=== PATIENT | female | born 1955 | race Caucasian/White ===

== ENCOUNTER 2016-12-21 09:51 | Emergency (ER) | payer OTHER ==
[~2016-12-21] VITALS: Ht 180.3 cm; Wt 97.5 kg
[~2016-12-21 09:51] MED LIST: HYDR50TA3 PO; MULT-974 PO; OXYC-12 PO; PROM12.59 PO
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
[2016-12-21] MEDS ORDERED: MELO15TA39 PO (10:29)
[2016-12-21] MEDS ORDERED: SPIR25TA3 PO (10:29)
[2016-12-21] MEDS ORDERED: fentaNYL INJECTION 100 MCG/2 ML AMP IM ONE (11:30)
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
--- NOTE | 2016-12-21 12:24 | Diagnostic Imaging Report ---
PROCEDURE: CT lumbar spine without contrast. TECHNIQUE: Multiple contiguous axial images were obtained through the lumbar spine without the use of intravenous contrast. Sagittal and coronal reformations were then performed. INDICATION: Lower extremity pain and back pain. COMPARISON: None. FINDINGS: No acute fracture or osseous destructive process is seen. There is moderate levoscoliosis of the lumbar spine centered at about L2-L3. Vertebral body heights are maintained. At L5-S1, there is advanced degenerative disc disease with disc space narrowing and spurring. There is mild broad-based posterior disc osteophyte complex resulting in minimal foraminal narrowing. There is mild facet arthropathy. At L4-L5, there is degenerative disc disease with disc space narrowing and mild spurring. There is mild facet arthropathy. There is broad-based posterior disc protrusion which is eccentric to the left. There is moderate to severe left foraminal encroachment and mild right foraminal encroachment with mild central narrowing. At L3-L4, there is degenerative disc disease with disc space narrowing and spurring as well as broad-based posterior disc protrusion and mild facet arthropathy. There is mild foraminal narrowing bilaterally. At L2-L3, there is advanced degenerative disc changes with disc space loss and spurring. There is some spurring extending into the right neural foramen resulting in some narrowing here. At L1-L2, there are degenerative disc changes with posterior disc osteophyte complex. No significant stenosis is appreciated. There are calcified granulomata in the spleen. IMPRESSION: 1. Levoscoliosis with diffuse degenerative changes in the spine. There is some moderate to severe left foraminal stenosis at L4-L5 secondary to disc protrusion. Correlate with level of radiculopathy. See above for detailed discussion by level. Dictated by: Dictated on workstation # [id number]
[2016-12-21 12:56] VITALS: BP 132/92
== END 2016-12-21 12:56 | disposition home or self-care (01) ==
LOC: EDUNIT# 09:51 → ER 09:55
DX: M51.16 Intervertebral disc disorders with radiculopathy, lumbar region (principal)
CPT/HCPCS: 72131; 96372; 99282

== ENCOUNTER → 2019-01-22 | Outpatient (CLI) | payer OTHER ==
[~2019-01-22] MED LIST changes: +MELO15TA39 PO; +SPIR25TA5 PO
--- NOTE | 2019-01-22 16:31 | Diagnostic Imaging Report ---
PROCEDURE: CT head without contrast. TECHNIQUE: Multiple contiguous axial images were obtained through the brain without the use of intravenous contrast. Auto Exposure Controls were utilized during the CT exam to meet ALARA standards for radiation dose reduction. INDICATION: Convulsions and disequilibrium. CT HEAD: CT images of the head were obtained. FINDINGS: Ventricles and sulci are within normal limits for size. There is no intracranial hemorrhage identified. There is no abnormal mass effect or shift of midline structures. IMPRESSION: Unremarkable CT of the head. Dictated by: Dictated on workstation # [id number]
== END ==
LOC: RAD 16:03
PROVIDERS: ATTEND Nurse Practitioner Family
DX: E87.8 Other disorders of electrolyte and fluid balance, not elsewhere classified (principal); R56.9 Unspecified convulsions; R55 Syncope and collapse
CPT/HCPCS: 70450

== ENCOUNTER 2021-08-20 14:01 | Inpatient (IN) | payer MEDICARE ==
[~2021-08-20] VITALS: Ht 180 cm; Wt 86.6 kg
[2021-08-20] VITALS (8 sets, daily range): BP systolic 101–125; BP diastolic 67–82
--- NOTE | 2021-08-20 14:31 | ED General ---
General Stated Complaint: SEIZURE Source of Information: Patient Exam Limitations: No Limitations History of Present Illness Date Seen by Provider: Aug 20, 2021 Time Seen by Provider: 14:28 Initial Comments To ER by EMS from Dr. Tamara Marcano's office where she presented to be seen for some abdominal discomfort that she has been having. Sh is currently being treated by Sukhi Castelan at [facility] for helicobacter pylori infection. She has had increasing weakness and falls. She has new onset exertional dyspnea. She had one seizure about 2 years ago but never followed up on it she states. Today in the clinic she had a tonic-clonic seizure episode with urinary incontinence. Glucose was 69. She has not been eating or drinking much. Fingerstick hemoglobin was initially 5.9 and then rechecked and found to be 7.5. She denies fevers or chills. She denies any headache but does report increasing weakness and increasing falls over the past few weeks. She has no known medical problems. She has tenderness to the right lower abdomen and has not had a bowel movement in 2 days. She is had an unintentional weight loss of 70 pounds since March of this year. Timing/Duration: Getting Worse, Intermittent Severity: Moderate Associated Systoms: Denies Symptoms Allergies and Home Medications Allergies Coded Allergies: No Known Drug Allergies (Unverified , 08/09/14) Patient Home Medication List Home Medication List Reviewed: Yes Hydrochlorothiazide (Hydrochlorothiazide) 50 Mg Tablet, 50 MG PO DAILY, (Reported) Entered as Reported by: BORA ALMARAZ on 08/09/14 0941 Meloxicam (Meloxicam) 15 Mg Tablet, 15 MG PO DAILY, (Reported) Entered as Reported by: SHARON LAURA on 12/21/16 1029 Multivitamin (Multi Vitamin Daily) 1 Each Tablet, 1 TAB PO DAILY, (Reported) Entered as Reported by: BORA ALMARAZ on 08/09/14 0943 Spironolactone (Spironolactone) 25 Mg Tablet, 25 MG PO DAILY, (Reported) Entered as Reported by: SHARON LAURA on 12/21/16 1029 Review of Systems Review of Systems Constitutional: see HPI EENTM: see HPI Respiratory: no symptoms reported Cardiovascular: no symptoms reported Gastrointestinal: abdominal pain Genitourinary: no symptoms reported Musculoskeletal: no symptoms reported Skin: no symptoms reported Psychiatric/Neurological: No Symptoms Reported Past Aoipdob-Witocs-Yqoolf Hx Immunizations Up To Date Tetanus Booster (TDap): More than 5yrs Seasonal Allergies Seasonal Allergies: No Past Medical History Reproductive Disorders: No Sexually Transmitted Disease: No Family Medical History Diabetes mellitus 19 MOTHER (dmu) Gastroenteritis 19 FATHER (gastric ulcers) Respiratory disorder G8 SISTER (lung ca) Physical Exam Vital Signs Vital Signs - First Documented 08/20/21 14:01 Temp 36.3 Pulse 95 Resp 16 B/P (MAP) 120/67 (84) Pulse Ox 100 O2 Delivery Nasal Cannula Capillary Refill : Height, Weight, BMI Height: 5'11" Weight: 215lbs. 6.0oz. 97.886472pg; BMI Method:Stated General Appearance: No Apparent Distress, WD/WN, Other (Ill-appearing chronically, abdomen is distended. Bowel sounds are present. Tenderness to the right side upon palpation.) Eyes: Bilateral Eye Normal Inspection, Bilateral Eye PERRL, Bilateral Eye EOMI Neck: Full Range of Motion, Normal Inspection Respiratory: No Accessory Muscle Use, No Respiratory Distress Cardiovascular: Regular Rate, Rhythm, Normal Peripheral Pulses Gastrointestinal: Normal Bowel Sounds, Non Tender, Soft Extremity: Normal Capillary Refill, Normal Inspection Neurologic/Psychiatric: Alert, Oriented x3 Skin: Normal Color, Warm/Dry Progress/Results/Core Measures Suspected Sepsis SIRS Temperature: Pulse: Respiratory Rate: Laboratory Tests 08/20/21 14:20: White Blood Count 5.4 Blood Pressure / Mean: Laboratory Tests 08/20/21 14:20: Creatinine 1.78H, INR Comment 1.1, Platelet Count 325, Total Bilirubin 0.5 Results/Orders Lab Results Laboratory Tests Test 08/20/21 14:20 Range/Units White Blood Count 5.4 4.3-11.0 10^3/uL Red Blood Count 2.77 L 3.80-5.11 10^6/uL Hemoglobin 6.8 *L 11.5-16.0 g/dL Hematocrit 24 L 35-52 % Mean Corpuscular Volume 85 80-99 fL Mean Corpuscular Hemoglobin 25 25-34 pg Mean Corpuscular Hemoglobin Concent 29 L 32-36 g/dL Red Cell Distribution Width 21.9 H 10.0-14.5 % Platelet Count 325 130-400 10^3/uL Mean Platelet Volume 9.4 9.0-12.2 fL Immature Granulocyte % (Auto) 5 % Neutrophils (%) (Auto) 65 42-75 % Lymphocytes (%) (Auto) 19 12-44 % Monocytes (%) (Auto) 10 0-12 % Eosinophils (%) (Auto) 0 0-10 % Basophils (%) (Auto) 1 0-10 % Neutrophils # (Auto) 3.5 1.8-7.8 X 10^3 Lymphocytes # (Auto) 1.0 1.0-4.0 X 10^3 Monocytes # (Auto) 0.5 0.0-1.0 X 10^3 Eosinophils # (Auto) 0.0 0.0-0.3 10^3/uL Basophils # (Auto) 0.1 0.0-0.1 10^3/uL Immature Granulocyte # (Auto) 0.3 H 0.0-0.1 10^3/uL Prothrombin Time 14.2 12.2-14.7 SEC INR Comment 1.1 0.8-1.4 Activated Partial Thromboplast Time 35 24-35 SEC Sodium Level 136 135-145 MMOL/L Potassium Level 4.0 3.6-5.0 MMOL/L Chloride Level 100 98-107 MMOL/L Carbon Dioxide Level 18 L 21-32 MMOL/L Anion Gap 18 H 5-14 MMOL/L Blood Urea Nitrogen 26 H 7-18 MG/DL Creatinine 1.78 H 0.60-1.30 MG/DL Estimat Glomerular Filtration Rate 29 BUN/Creatinine Ratio 15 Glucose Level 155 H 70-105 MG/DL Calcium Level 9.7 8.5-10.1 MG/DL Corrected Calcium 10.3 H 8.5-10.1 MG/DL Magnesium Level 2.2 1.6-2.4 MG/DL Total Bilirubin 0.5 0.1-1.0 MG/DL Aspartate Amino Transf (AST/SGOT) 55 H 5-34 U/L Alanine Aminotransferase (ALT/SGPT) 30 0-55 U/L Alkaline Phosphatase 256 H 40-136 U/L B-Type Natriuretic Peptide 173.1 H <100.0 PG/ML Total Protein 7.5 6.4-8.2 GM/DL Albumin 3.3 3.2-4.5 GM/DL Lipase 14 8-78 U/L Thyroid Stimulating Hormone (TSH) 1.96 0.35-4.94 UIU/ML Free Thyroxine 1.00 0.70-1.48 NG/DL My Orders Orders - MANJU FELTON APRN Ct Head Wo (08/20/21 14:24) Chest 1 View, Ap/Pa Only (08/20/21 14:24) Cbc With Automated Diff (08/20/21 14:24) Ekg Tracing (08/20/21 14:24) BNP (08/20/21 14:24) Ua Culture If Indicated (08/20/21 14:24) Ed Iv/Invasive Line Start (08/20/21 14:24) Lipase (08/20/21 14:24) Magnesium (08/20/21 14:24) Thyroid Stimulating Hormone (08/20/21 14:24) Free T4 (Free Thyroxine) (08/20/21 14:24) Red Cells Leukocytes Reduced (08/20/21 14:24) Type And Screen (08/20/21 14:24) Comprehensive Metabolic Panel (08/20/21 14:42) Protime With Inr (08/20/21 14:42) Partial Thromboplastin Time (08/20/21 14:42) Ct Chest/Abdomen/Pelvis Wo (08/20/21 15:14) Lactated Ringers (Lr 1000 Ml Iv Solution (08/20/21 15:15) Diatrizoate Meglum/Sodium 37% (Gastrogra (08/20/21 16:00) Medications Given in ED Current Medications Medications Dose Ordered Sig/Hakeem Route Start Time Stop Time Status Last Admin Dose Admin Diatrizoate Meglum/ Diatrizoate Sod 120 ml ONCE ONCE PO 08/20/21 16:00 08/20/21 16:01 DC 08/20/21 15:56 120 ML Vital Signs/I&O 08/20/21 14:01 Temp 36.3 Pulse 95 Resp 16 B/P (MAP) 120/67 (84) Pulse Ox 100 O2 Delivery Nasal Cannula Capillary Refill : Departure Communication (Admissions) Family Conversation NAME: HANNAH ARNOLD MED REC#: [id number] PT STATUS: REG ER : 1955 PHYSICIAN: MANJU FELTON APRN ADMIT DATE: 08/20/21/ER Draft Date of Exam:08/20/21 CHEST 1 VIEW, AP/PA ONLY INDICATION: Shortness of breath Frontal chest obtained at 02:47 p.m. and compared to 08/10/2014. Heart and mediastinal silhouette are normal in appearance. The lungs appear clear. There is no pneumothorax or pleural fluid. There are ill-defined sclerotic changes throughout the visualized ribs with old fracture deformities in the left ribs. The findings of the ribs may represent old trauma or metastatic disease.. Correlate with clinical findings. IMPRESSION: No focal infiltrate or pneumothorax or pleural fluid. Ill-defined sclerotic changes are visualized scattered throughout the ribs, these findings could represent old trauma or metastatic disease. Correlate with clinical findings. Dictated on workstation # [id number] Dict: 08/20/21 1456 Trans: 08/20/21 1506 [facility] [id number] Interpreted by: CHEN BUCKLEY MD Electronically signed by: NAME: HANNAH ARNOLD [facility] REC#: [id number] PT STATUS: REG ER : 1955 PHYSICIAN: MANJU FELTON APRN ADMIT DATE: 08/20/21/ER Draft Date of Exam:08/20/21 CT HEAD WO INDICATION: Seizure. Weakness. TECHNIQUE: Routine noncontrast-enhanced axial images were obtained from the skull base to the vertex. Auto Exposure Controls were utilized during the CT exam to meet ALARA standards for radiation dose reduction COMPARISON: 01/22/2019. FINDINGS: The ventricles and cortical sulci are diffusely prominent, compatible with age-related volume loss. There are confluent areas of abnormal, low attenuation in the periventricular white matter. This is consistent with chronic small vessel ischemic changes. There is no midline shift or mass-effect. No acute intra-axial hemorrhage is seen. There are no abnormal areas of increased or decreased density to suggest acute hemorrhage or edema. No extra-axial masses or collections are present. Evaluation of the bony calvarium demonstrates a diffuse mottled appearance, suggestive of metastatic disease. This corresponds to the abnormal appearance to the osseous structures on the accompanying CT chest, abdomen, and pelvis from this same day. The visualized paranasal sinuses are unremarkable. The mastoid air cells are clear. IMPRESSION: 1. No acute intracranial abnormality. No CT evidence of mass, acute infarct or intracranial hemorrhage. 2. Chronic small vessel ischemic changes in the deep white matter. 3. 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 Dictated on workstation # [id number] Dict: 08/20/21 1604 Trans: 08/20/21 1610 [id number] Interpreted by: AJ YAÑEZ MD Electronically signed by: NAME: HANNAH ARNOLD [facility] REC#: [id number] PT STATUS: REG ER : 1955 PHYSICIAN: MANJU FELTON [employer]SEMBLER ADMIT DATE: 08/20/21/ER Draft Date of Exam:08/20/21 CT CHEST/ABDOMEN/PELVIS WO PROCEDURE: CT chest, abdomen, and pelvis without contrast. TECHNIQUE: Multiple contiguous axial images were obtained through the chest, abdomen, and pelvis without the use of intravenous contrast. Auto Exposure Controls were utilized during the CT exam to meet ALARA standards for radiation dose reduction. INDICATION: Marked weight loss, weakness, difficulty breathing, abdominal distention, right abdominal pain, seizure, anemia. COMPARISON: 08/09/2014 FINDINGS: CT CHEST: The heart is normal in size. The interventricular septum is visible which is consistent with the patient's history of anemia. There is coronary and aortic atherosclerosis. Multiple calcified lymph nodes are seen in the mediastinum, likely from old granulomatous disease. No significant mediastinal lymph node enlargement is seen. There is no pleural effusion or pneumothorax. There is mild scarring in the left lung base. No masses are seen in the lungs. No central endobronchial lesions are seen. The bones demonstrate extensive mottled appearance with innumerable lytic lesions throughout the imaged skeleton. No definite acute fracture is identified. CT ABDOMEN AND PELVIS: There is irregularity to the contour of the liver, may be due to nodularity or capsular retraction. Calcified granulomas are seen in the liver and spleen. The spleen is large measuring 13.4 cm. The pancreas is not well seen, but appears to be atrophic and fatty. There is a gallbladder calcified stone measuring 2.2 cm. The kidneys demonstrate no stones and no significant calculus. No large masses are seen on this noncontrast exam. There is marked ascites throughout the abdomen. The bowel loops are nondistended without obstruction. There is diverticulosis of the sigmoid colon without diverticulitis. No free air is seen. There is a mass in the right adnexa measuring 3.8 x 3.5 cm in size (image 101 series 2). This is not well evaluated in the absence of contrast. Again, there are extensive lytic lesions throughout the skeleton, which are innumerable lesions at L3 may result in spinal canal stenosis. IMPRESSION: 1. Innumerable lytic lesions throughout the imaged skeleton, consistent with metastatic disease. Lesion at L3 level could result in spinal canal stenosis 2. Marked ascites. 3. 3.8 cm mass in the right adnexa. This could represent a cyst, however a neoplasm is not excluded. Consider ultrasound if the patient is able. 4. Somewhat lobulated appearance of the liver. This could be due to sclerotic changes or possibly capsular retraction. No definitive liver lesion is seen on this noncontrast exam. 5. Splenomegaly. 6. Cholelithiasis. Dictated on workstation # [id number] Dict: 08/20/21 1605 Trans: 08/20/21 1628 CVB [id number] Interpreted by: RODRICK ALBERTS MD Electronically signed by: [id number] shows sinus rhythm at [address] segment changes no ectopy 1640-discussed the case with Dr. Vergara from gynecology here, recommends transfer on up to [facility] for Mechanical Drawing Teacher-onc 1802-I discussed with the [facility] transfer center they are at capacity and unable to accept the patient. They have given me the phone number to the cancer center nurse navigator at [phone] and report that she can help facilitate an expedited evaluation. Will admit her here, transfused 2 units of packed cells, consult Dr. Hernandes for paracentesis tomorrow for cytology and symptom relief, consult Dr. Vergara as well as getting an ultrasound of the pelvis tomorrow. I will admit to Dr. Jiménez and consult oncology as well. Impression Primary Impression: Metastatic cancer Additional Impressions: Anemia Ovarian mass, right Disposition: ADMITTED INPATIENT Condition: Stable Admissions Decision to Admit Reason: Admit from ER (General) Decision to Admit/Date: Aug 20, 2021 Time/Decision to Admit Time: 16:17 Departure-Patient Inst. Referrals: [facility] [place] (PCP/Family) Primary Care Physician MANJU FELTON [employer] SH[employer] ASSEMBLER Aug 20, 2021 14:31
[2021-08-20 14:33] LABS: BASOPHILS # (AUTO) 0.1 10^3/uL (0.0-0.1); BASOPHILS % (AUTO) 1 % (0-10); EOSINOPHILS % (AUTO) 0 % (0-10); HEMATOCRIT 24 % (35-52); LYMPHOCYTES % (AUTO) 19 % (12-44); MEAN CORPUSCULAR HEMOGLOBIN 25 pg (25-34); MEAN CORPUSCULAR HGB CONC 29 g/dL (32-36); MEAN CORPUSCULAR VOLUME 85 fL (80-99); MEAN PLATELET VOLUME 9.4 fL (9.0-12.2); MONOCYTES # (AUTO) 0.5 X 10^3 (0.0-1.0); MONOCYTES % (AUTO) 10 % (0-12); NEUTROPHILS # (AUTO) 3.5 X 10^3 (1.8-7.8); NEUTROPHILS % (AUTO) 65 % (42-75); PLATELET COUNT 325 10^3/uL (130-400); WHITE BLOOD COUNT 5.4 10^3/uL (4.3-11.0)
[2021-08-20 14:36] LABS: HEMOGLOBIN 6.8 g/dL (11.5-16.0)
[2021-08-20 14:44] LABS: MAGNESIUM 2.2 MG/DL (1.6-2.4)
[2021-08-20 15:00] LABS: INR 1.1 (0.8-1.4); PROTHROMBIN TIME PATIENT 14.2 SEC (12.2-14.7)
[2021-08-20 15:06] LABS: ALBUMIN 3.3 GM/DL (3.2-4.5); BILIRUBIN,TOTAL 0.5 MG/DL (0.1-1.0); CALCIUM 9.7 MG/DL (8.5-10.1); CREATININE SERUM 1.78 MG/DL (0.60-1.30); TOTAL PROTEIN 7.5 GM/DL (6.4-8.2)
--- NOTE | 2021-08-20 15:06 | Diagnostic Imaging Report ---
INDICATION: Shortness of breath Frontal chest obtained at 02:47 p.m. and compared to 08/10/2014. Heart and mediastinal silhouette are normal in appearance. The lungs appear clear. There is no pneumothorax or pleural fluid. There are ill-defined sclerotic changes throughout the visualized ribs with old fracture deformities in the left ribs. The findings of the ribs may represent old trauma or metastatic disease.. Correlate with clinical findings. IMPRESSION: No focal infiltrate or pneumothorax or pleural fluid. Ill-defined sclerotic changes are visualized scattered throughout the ribs, these findings could represent old trauma or metastatic disease. Correlate with clinical findings. Dictated by: Dictated on workstation # [id number]
[2021-08-20] MEDS ORDERED: LACTATED RINGERS 1,000 ML IV SCH (15:15)
[2021-08-20] MEDS ORDERED: DIATRIZOATE MEGLUM/SODIUM 37% 120 ML (GASTROGRAFIN) PO ONE (16:00)
--- NOTE | 2021-08-20 16:10 | Diagnostic Imaging Report ---
INDICATION: Seizure. Weakness. TECHNIQUE: Routine noncontrast-enhanced axial images were obtained from the skull base to the vertex. Auto Exposure Controls were utilized during the CT exam to meet ALARA standards for radiation dose reduction COMPARISON: 01/22/2019. FINDINGS: The ventricles and cortical sulci are diffusely prominent, compatible with age-related volume loss. There are confluent areas of abnormal, low attenuation in the periventricular white matter. This is consistent with chronic small vessel ischemic changes. There is no midline shift or mass-effect. No acute intra-axial hemorrhage is seen. There are no abnormal areas of increased or decreased density to suggest acute hemorrhage or edema. No extra-axial masses or collections are present. Evaluation of the bony calvarium demonstrates a diffuse mottled appearance, suggestive of metastatic disease. This corresponds to the abnormal appearance to the osseous structures on the accompanying CT chest, abdomen, and pelvis from this same day. The visualized paranasal sinuses are unremarkable. The mastoid air cells are clear. IMPRESSION: 1. No acute intracranial abnormality. No CT evidence of mass, acute infarct or intracranial hemorrhage. 2. Chronic small vessel ischemic changes in the deep white matter. 3. 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 Dictated by: Dictated on workstation # [id number]
--- NOTE | 2021-08-20 16:29 | Diagnostic Imaging Report ---
PROCEDURE: CT chest, abdomen, and pelvis without contrast. TECHNIQUE: Multiple contiguous axial images were obtained through the chest, abdomen, and pelvis without the use of intravenous contrast. Auto Exposure Controls were utilized during the CT exam to meet ALARA standards for radiation dose reduction. INDICATION: Marked weight loss, weakness, difficulty breathing, abdominal distention, right abdominal pain, seizure, anemia. COMPARISON: 08/09/2014 FINDINGS: CT CHEST: The heart is normal in size. The interventricular septum is visible which is consistent with the patient's history of anemia. There is coronary and aortic atherosclerosis. Multiple calcified lymph nodes are seen in the mediastinum, likely from old granulomatous disease. No significant mediastinal lymph node enlargement is seen. There is no pleural effusion or pneumothorax. There is mild scarring in the left lung base. No masses are seen in the lungs. No central endobronchial lesions are seen. The bones demonstrate extensive mottled appearance with innumerable lytic lesions throughout the imaged skeleton. No definite acute fracture is identified. CT ABDOMEN AND PELVIS: There is irregularity to the contour of the liver, may be due to nodularity or capsular retraction. Calcified granulomas are seen in the liver and spleen. The spleen is large measuring 13.4 cm. The pancreas is not well seen, but appears to be atrophic and fatty. There is a gallbladder calcified stone measuring 2.2 cm. The kidneys demonstrate no stones and no significant calculus. No large masses are seen on this noncontrast exam. There is marked ascites throughout the abdomen. The bowel loops are nondistended without obstruction. There is diverticulosis of the sigmoid colon without diverticulitis. No free air is seen. There is a mass in the right adnexa measuring 3.8 x 3.5 cm in size (image 101 series 2). This is not well evaluated in the absence of contrast. Again, there are extensive lytic lesions throughout the skeleton, which are innumerable lesions at L3 may result in spinal canal stenosis. IMPRESSION: 1. Innumerable lytic lesions throughout the imaged skeleton, consistent with metastatic disease. Lesion at L3 level could result in spinal canal stenosis 2. Marked ascites. 3. 3.8 cm mass in the right adnexa. This could represent a cyst, however a neoplasm is not excluded. Consider ultrasound if the patient is able. 4. Somewhat lobulated appearance of the liver. This could be due to sclerotic changes or possibly capsular retraction. No definitive liver lesion is seen on this noncontrast exam. 5. Splenomegaly. 6. Cholelithiasis. Dictated by: Dictated on workstation # [id number]
[2021-08-20] MEDS ORDERED: NS IV 500 ML 500 ML IV SCH (18:00)
[2021-08-20] MEDS ORDERED: LORazepam INJ 2 MG/ML (ATIVAN) VIAL IV PRN (18:00)
[2021-08-20] MEDS: NS IV 1000 ML 1,000 ML IV SCH (18:44)
[2021-08-20] MEDS ORDERED: MELATONIN 3 MG TABLET PO PRN (18:45)
[2021-08-20] MEDS ORDERED: ALPRAZolam 0.25 MG (XANAX) TAB PO PRN (18:45)
[2021-08-20] MEDS ORDERED: diphenhydrAMINE 25 MG TAB (BENADRYL) PO PRN (18:45)
[2021-08-20] MEDS ORDERED: ACETAMINOPHEN 500 MG TAB (TYLENOL) PO PRN (18:45)
[2021-08-20] MEDS ORDERED: HYDROcodone/APAP 5 MG/325 MG (LORTAB) TAB PO PRN (18:45)
[2021-08-20] MEDS ORDERED: DOCUSATE SODIUM 100 MG (COLACE) CAP PO PRN (18:45)
[2021-08-20] MEDS ORDERED: FLU QUAD HIGH DOSE 240 MCG/0.7 ML 2021-22 (FLUZONE) IM ONE (19:00)
[2021-08-20] MEDS ORDERED: RT-ALBUTEROL SULF 2.5 MG/3 ML PRE-MIX VIAL INH PRN (20:30)
--- NOTE | 2021-08-20 20:49 | History & Physical-Hospitalist ---
History of Present Illness HPI/Chief Complaint Chief complaint: Weakness History present illness: This is a 66-year-old white female clinic patient of [facility] who presented to the ER with weakness and abdominal bloating. She is found to be profoundly anemic at 6.8 hemoglobin. Upon further assessment she appeared to have an ovarian mass with widespread bony metastasis presumed to be ovarian cancer. She does have ascites. No beds available at . Decision was made to admit and give 2 units of blood consult MANAGER PLAY Dr. MIXON along with Dr. Hernandes for ovarian mass and paracentesis to send for cytology respectively. Dr. Quevedo will also see her in consultation. Patient appears to be very weak. and daughter at the bedside. She denies any pain. Source: patient, family Exam Limitations: no limitations Date Seen 08/20/21 Time Seen by a Provider: 18:30 Attending Physician Agnes Stahl DO PCP [facility] Referring Physician Date of Admission Aug 20, 2021 at 16:23 Home Medications & Allergies Home Medications Reviewed patient Home Medication Reconciliation performed by pharmacy medication reconciliations parking enforcement technician and/or nursing. Patients Allergies have been reviewed. Allergies Allergies Coded Allergies No Known Drug Allergies ([id number]/21/14) Past Oahlrzd-Ccsqkd-Cmdwfy Hx Patient Social History Marrital Status: Employed/Student: unemployed Tobacco Use?: Yes Tobacco type used: Cigarettes Smoking Status: Former Smoker Smokeless Tobacco Frequency: Never a User Use of E-Cig and/or Vaping dev: Yes E-Cig or Vaping type used: Nicotine Use of E-Cig and/or Vaping Myke: Former User Substance use?: No Alcohol Use?: No Pt feels they are or have been: No Immunizations Up To Date First/Initial COVID19 Vaccinat: 04/09 Second COVID19 Vaccination Luis: 04/09 Tetanus Booster (TDap): Unknown Seasonal Allergies Seasonal Allergies: No Current Status status: No status: No Advance Directives: No Communicates: Verbally Primary Language: Cambodian Preferred Spoken Language: Cambodian Is interpretation needed?: No Sensory deficits: Vision impairment Past Medical History Sexually Transmitted Disease: No Family Medical History Diabetes mellitus 19 MOTHER (dmu) Gastroenteritis 19 FATHER (gastric ulcers) Respiratory disorder G8 SISTER (lung ca) Review of Systems Constitutional: see HPI, malaise, weakness, weight loss EENTM: no symptoms reported Respiratory: no symptoms reported Cardiovascular: no symptoms reported Gastrointestinal: abdominal pain, loss of appetite, nausea, vomiting Genitourinary: no symptoms reported Musculoskeletal: no symptoms reported Skin: no symptoms reported Psychiatric/Neurological: No Symptoms Reported All Other Systems Reviewed Negative Unless Noted: Yes Physical Exam Physical Exam Vital Signs Vital Signs - First Documented 08/20/21 14:01 Temp 36.3 Pulse 95 Resp 16 B/P (MAP) 120/67 (84) Pulse Ox 100 O2 Delivery Nasal Cannula Capillary Refill : Less Than 3 Seconds Height, Weight, BMI Height: 5'11" Weight: 215lbs. 6.0oz. 97.251181vh; 22.53 BMI Method:Stated General Appearance: WD/WN, Chronically ill, Thin Eyes: Right Eye Normal Inspection, Right Eye PERRL HEENT: PERRL/EOMI, Normal ENT Inspection, Pharynx Normal, Moist Mucous Membranes Neck: Full Range of Motion, Normal Inspection, Non Tender Respiratory: Chest Non Tender, Lungs Clear, Normal Breath Sounds, No Accessory Muscle Use, No Respiratory Distress Cardiovascular: Regular Rate, Rhythm, No Edema, No Gallop, No JVD, No Murmur, N ormal Peripheral Pulses Gastrointestinal: Normal Bowel Sounds, No Organomegaly, No Pulsatile Mass, Soft, Tenderness, Other (Fluid wave) Back: Normal Inspection, No CVA Tenderness, No Vertebral Tenderness Extremity: Normal Capillary Refill, Normal Inspection, Normal Range of Motion, Non Tender, No Calf Tenderness, No Pedal Edema Neurologic/Psychiatric: Alert, Oriented x3, No Motor/Sensory Deficits, Normal Mood/Affect Skin: Normal Color, Warm/Dry Lymphatic: No Adenopathy Results Results/Procedures Labs Laboratory Tests 08/20/21 14:20 Patient resulted labs reviewed. Assessment/Plan Admission Diagnosis Assessment: Severe symptomatic anemia requiring transfusion Ovarian mass with evidence of bony metastasis presumed to be ovarian cancer Ascites needs paracentesis for cytology Plan: Supportive care Hold anticoagulation due to severe anemia Appreciate gynecology Appreciate general surgery Appreciate oncology Admission Status: Inpatient Order (span 2 midnights) Reason for Inpatient Admission: Severe anemia with ovarian mass Clinical Quality Measures DVT/VTE Risk/Contraindication: Contraindications-Pharm: Other *list below* Other: severe anemia AGNES STAHL DO Aug 20, 2021 20:49
[2021-08-20] MEDS: SENNA W/DOCUSATE (SENOKOT S) TABLET PO SCH (22:50)
[2021-08-20] MEDS: CALCIUM CARBONATE 500 MG (TUMS) TAB.CHEW PO PRN (23:26)
[2021-08-20] MEDS: ACETAMINOPHEN 325 MG TABLET PO PRN (23:27)
[2021-08-21 01:44] VITALS: BP 119/79
[2021-08-21 04:02] VITALS: BP 112/68
[2021-08-21 05:55] LABS: BASOPHILS # (AUTO) 0.1 10^3/uL (0.0-0.1); BASOPHILS % (AUTO) 1 % (0-10); EOSINOPHILS % (AUTO) 0 % (0-10); HEMATOCRIT 29 % (35-52); HEMOGLOBIN 9.1 g/dL (11.5-16.0); LYMPHOCYTES # (AUTO) 0.9 10^3/uL (1.0-4.0); LYMPHOCYTES % (AUTO) 15 % (12-44); MEAN CORPUSCULAR HEMOGLOBIN 27 pg (25-34); MEAN CORPUSCULAR HGB CONC 32 g/dL (32-36); MEAN CORPUSCULAR VOLUME 85 fL (80-99); MONOCYTES # (AUTO) 0.6 10^3/uL (0.0-1.0); MONOCYTES % (AUTO) 10 % (0-12); NEUTROPHILS # (AUTO) 4.3 10^3/uL (1.8-7.8); NEUTROPHILS % (AUTO) 70 % (42-75); PLATELET COUNT 229 10^3/uL (130-400); WHITE BLOOD COUNT 6.1 10^3/uL (4.3-11.0)
[2021-08-21 06:18] LABS: ALBUMIN 3.1 GM/DL (3.2-4.5); BILIRUBIN,TOTAL 1.1 MG/DL (0.1-1.0); CALCIUM 9.5 MG/DL (8.5-10.1); CREATININE SERUM 1.67 MG/DL (0.60-1.30); POTASSIUM 4.2 MMOL/L (3.6-5.0); TOTAL PROTEIN 7.2 GM/DL (6.4-8.2)
--- NOTE | 2021-08-21 08:44 | Diagnostic Imaging Report ---
PROCEDURE: US PELVIC (NON OB). TECHNIQUE: Multiple Real-time grayscale images were obtained over the pelvis in various projections transabdominally. INDICATION: Metastatic cancer. Ovarian mass on CT. COMPARISON: 08/20/2021 CT scan. FINDINGS: The uterus measures 7.5 x 4.7 x 4.5 cm. There is a large amount of ascites. The endometrial stripe is 8 mm. The right ovary measures 5.3 x 4.2 x 4.1 cm. There is a 3.7 cm complex thick-walled cyst with internal echoes noted in the right adnexa. This does correlate with the CT findings. The left ovary measures 3.7 x 2.8 x 2.0 cm. There is normal blood flow to the ovaries. IMPRESSION: A complex nodular appearing cystic mass within the right adnexa correlates with the CT findings. This is highly suspicious for malignancy. Dictated by: Dictated on workstation # [id number]
[2021-08-21] MEDS: ONDANSETRON 4 MG/2 ML (SDV) Z0FRAN IV PRN (08:45)
[2021-08-21] MEDS: CATHETER FLUSH 10 ML SYR IV PRN (08:45)
--- NOTE | 2021-08-21 08:52 | Consultation ---
History of Present Illness History of Present Illness Patient Consulted On(luis/time) 08/21/21 08:42 Date Seen by Provider: Aug 21, 2021 Time Seen by Provider: 08:15 Reason for Visit: Weight loss and abdominal pain History of Present Illness Patient came to ER yesterday with significant weight loss and diffuse abdominal pain. Patient admits it has been a long time since seeing a doctor. She was trying to establish PCP with Dr. Kay at [facility], but became much worse in the past couple of days. She presented to the ER where imaging was done, and labs. She was significantly anemic and admitted. However, does have diffuse peritoneal disease concerning for advanced stage malignancy. Allergies and Home Medications Allergies Coded Allergies: No Known Drug Allergies (Unverified , 08/09/14) Patient Home Medication List Home Medication List Reviewed: Yes Hydrochlorothiazide (Hydrochlorothiazide) 50 Mg Tablet, 50 MG PO DAILY, (Reported) Entered as Reported by: BORA ALMARAZ on 08/09/14 0941 Meloxicam (Meloxicam) 15 Mg Tablet, 15 MG PO DAILY, (Reported) Entered as Reported by: SHARON LAURA on 12/21/16 1029 Multivitamin (Multi Vitamin Daily) 1 Each Tablet, 1 TAB PO DAILY, (Reported) Entered as Reported by: BORA ALMARAZ on 08/09/14 0943 Spironolactone (Spironolactone) 25 Mg Tablet, 25 MG PO DAILY, (Reported) Entered as Reported by: SHARON LAURA on 12/21/16 1029 Past Cgrcrpv-Obxrfz-Rqoitc Hx Patient Social History Tobacco Use?: Yes Tobacco type used: Cigarettes Smoking Status: Former Smoker Smokeless Tobacco Frequency: Never a User Use of E-Cig and/or Vaping dev: Yes E-Cig or Vaping type used: Nicotine Use of E-Cig and/or Vaping Myke: Former User Substance use?: No Alcohol Use?: No Pt feels they are or have been: No Immunizations Up To Date Tetanus Booster (TDap): More than 5yrs Influenza Vaccine Up-to-Date: No; Not Current First/Initial COVID19 Vaccinat: 04/09 Second COVID19 Vaccination Luis: 04/09 Third COVID19 Vaccination Date: 04/09 COVID19 Vaccine Immigration Attorney: ALEYDA Seasonal Allergies Seasonal Allergies: No Past Medical History Reproductive Disorders: No Sexually Transmitted Disease: No Family Medical History Diabetes mellitus 19 MOTHER (dmu) Gastroenteritis 19 FATHER (gastric ulcers) Respiratory disorder G8 SISTER (lung ca) Physical Exam-General Problems Physical Exam Vital Signs Vital Signs - First Documented 08/20/21 14:01 Temp 36.3 Pulse 95 Resp 16 B/P (MAP) 120/67 (84) Pulse Ox 100 O2 Delivery Nasal Cannula Capillary Refill : Less Than 3 Seconds General Appearance: WD/WN, mild distress HEENT: PERRL/EOMI Comments Laboratory Tests Test 08/20/21 14:20 08/21/21 05:46 Range/Units White Blood Count 5.4 6.1 4.3-11.0 10^3/uL Red Blood Count 2.77 L 3.40 L 3.80-5.11 10^6/uL Hemoglobin 6.8 *L 9.1 L 11.5-16.0 g/dL Hematocrit 24 L 29 L 35-52 % Mean Corpuscular Volume 85 85 80-99 fL Mean Corpuscular Hemoglobin 25 27 25-34 pg Mean Corpuscular Hemoglobin Concent 29 L 32 32-36 g/dL Red Cell Distribution Width 21.9 H 19.5 H 10.0-14.5 % Platelet Count 325 229 130-400 10^3/uL Mean Platelet Volume 9.4 9.0 9.0-12.2 fL Immature Granulocyte % (Auto) 5 4 % Neutrophils (%) (Auto) 65 70 42-75 % Lymphocytes (%) (Auto) 19 15 12-44 % Monocytes (%) (Auto) 10 10 0-12 % Eosinophils (%) (Auto) 0 0 0-10 % Basophils (%) (Auto) 1 1 0-10 % Neutrophils # (Auto) 3.5 4.3 1.8-7.8 10^3/uL Lymphocytes # (Auto) 1.0 0.9 L 1.0-4.0 10^3/uL Monocytes # (Auto) 0.5 0.6 0.0-1.0 10^3/uL Eosinophils # (Auto) 0.0 0.0 0.0-0.3 10^3/uL Basophils # (Auto) 0.1 0.1 0.0-0.1 10^3/uL Immature Granulocyte # (Auto) 0.3 H 0.3 H 0.0-0.1 10^3/uL Prothrombin Time 14.2 12.2-14.7 SEC INR Comment 1.1 0.8-1.4 Activated Partial Thromboplast Time 35 24-35 SEC Sodium Level 136 136 135-145 MMOL/L Potassium Level 4.0 4.2 3.6-5.0 MMOL/L Chloride Level 100 101 98-107 MMOL/L Carbon Dioxide Level 18 L 18 L 21-32 MMOL/L Anion Gap 18 H 17 H 5-14 MMOL/L Blood Urea Nitrogen 26 H 26 H 7-18 MG/DL Creatinine 1.78 H 1.67 H 0.60-1.30 MG/DL Estimat Glomerular Filtration Rate 29 31 BUN/Creatinine Ratio 15 16 Glucose Level 155 H 106 H 70-105 MG/DL Calcium Level 9.7 9.5 8.5-10.1 MG/DL Corrected Calcium 10.3 H 10.2 H 8.5-10.1 MG/DL Magnesium Level 2.2 1.6-2.4 MG/DL Total Bilirubin 0.5 1.1 H 0.1-1.0 MG/DL Aspartate Amino Transf (AST/SGOT) 55 H 53 H 5-34 U/L Alanine Aminotransferase (ALT/SGPT) 30 25 0-55 U/L Alkaline Phosphatase 256 H 251 H 40-136 U/L B-Type Natriuretic Peptide 173.1 H <100.0 PG/ML Total Protein 7.5 7.2 6.4-8.2 GM/DL Albumin 3.3 3.1 L 3.2-4.5 GM/DL Lipase 14 8-78 U/L Thyroid Stimulating Hormone (TSH) 1.96 0.35-4.94 UIU/ML Free Thyroxine 1.00 0.70-1.48 NG/DL Assessment/Plan Assessment/Plan Admission Diagnosis/Plan 66 yo female with diffuse peritoneal malignancy of unknown origin -This is suspicious for primary ovarian/peritoneal, will await paracentisis path before further recommendation - Pending this is ovarian primary, with this advanced stage will likely need Oncology consultation, with consideration for surgical debulking with Surg/Onc or Social Services Analyst/Onc, both of which are not available here. Admission Status: Inpatient Order (span 2 midnights) Clinical Quality Measures DVT/VTE Risk/Contraindication: Contraindications-Pharm: Other *list below* Other: severe anemia MARIA GUADALUPE MIXON DO Aug 21, 2021 8:51 am
[2021-08-21 08:54] VITALS: BP 119/67
[2021-08-21] MEDS ORDERED: GADOTERATE 0.5 MMOL/ML (CLARISCAN) 15 ML VIAL IV ONE (09:15)
[2021-08-21] MEDS: NS IV 1000 ML 1,000 ML IV SCH ×2 (09:17→14:22)
[2021-08-21] MEDS: SENNA W/DOCUSATE (SENOKOT S) TABLET PO SCH ×2 (09:17→21:00)
--- NOTE | 2021-08-21 10:10 | Diagnostic Imaging Report ---
CLINICAL INDICATION: Patient with dizziness and weakness. Anemia. Metastatic cancer of unknown primary. EXAM: MRI of the brain performed without and with 14 cc of Clariscan IV contrast. Sequences include axial DWI, ADC map, axial gradient echo, axial T2, axial FLAIR, axial T1, axial T1 post IV contrast, coronal T1 fat-sat post IV contrast, and sagittal T1 post IV contrast. COMPARISON: Head CT without contrast dated 08/20/2021. FINDINGS: There is no evidence of acute cerebral infarct, intracranial hemorrhage, or gross mass effect. There is no brain parenchymal enhancement. There is brain parenchymal volume loss. There is a small amount of patchy and confluent areas of high T2 signal white matter changes involving both cerebral hemispheres, periventricular regions, and sylvia, likely representing chronic small vessel ischemic disease and leukoaraiosis. There is normal lopez-white matter distinction. There is no significant midline shift or herniation. The [place] vascular structures show no gross abnormality as visualized. The pituitary gland, sella, and suprasellar regions are unremarkable as visualized. There is no evidence of hydrocephalus. The basal cisterns are unremarkable. There are diffuse low signal lesions throughout the visualized calvarium with associated heterogeneous enhancement. These findings are concerning for osseous infiltrative/metastatic disease. There is mild pachymeningeal enhancement. The skull, extracranial soft tissue, and orbits are unremarkable. There is minimal ethmoid sinus mucosal thickening. The temporal bones show no significant abnormality. IMPRESSION: 1: There is diffuse osseous infiltrative/metastatic disease involving the visualized calvarium with low signal lesions and enhancement. There is mild bilateral pachymeningeal enhancement which may be related to osseous disease. There is no brain parenchymal enhancement or nodular mass-like intracranial enhancement. 2: Age related brain parenchymal changes with chronic small vessel ischemic disease and leukoaraiosis. Dictated by: Dictated on workstation # [id number]
--- NOTE | 2021-08-21 11:13 | Consultation - Surgery ---
MACRINA GILBERT MED STUDENT 08/21/21 1113: History of Present Illness History of Present Illness Patient Consulted On(marcella/time) 08/21/21 11:00 Date Seen by Provider: Aug 21, 2021 Time Seen by Provider: 06:15 Reason for Visit: Weight loss and abdominal pain History of Present Illness Patient is seen at bedside. She presented yesterday afternoon from PCP office after having a tonic-clonic seizure and was found to be severely anemic. She reports that she was falling down multiple times at home, feeling lightheaded, and getting short of breath with minimal exertion over the course of the last week. Upon speaking with the patients she started feeling off in about March where she when she began to lose her appetite, she reports she has lost about 70lbs since then. Then in April she developed epigastric pain radiating across her upper abdomen, which would occur everytime she ate. Early in July she was started on treatment for H. pylori, upon finishing treatment she started having n/v every night which was a light yellow, but now this morning it is this dark green bilious color, which requires no retching, but just comes up. After finishing treatment she also started noticing her belly was "swelling up" which does not cause pain, but discomfort and makes it difficult to breath. Through out these months she has tried tums, pepto, chewing gum which has not really helped with her symptoms, she cannot think of anything that makes it worse except eating seems "to make her belly bigger". She has never had a colonoscopy/egd, or mammogram Her first menstral period she was 12 years old Her last mensteral peroid was about 10-15 years ago She denies any vaginal bleeding. Allergies and Home Medications Allergies Coded Allergies: No Known Drug Allergies (Unverified , 08/09/14) Patient Home Medication List Home Medication List Reviewed: Yes Aspirin (Aspirin EC) 81 Mg Tablet., 81 MG PO DAILY, (Reported) Entered as Reported by: KENNA CASTANEDA on 08/21/21 2652 Last Action: Reviewed Multivitamin (Multivitamin) 1 Each Tablet, 1 EACH PO DAILY, (Reported) Entered as Reported by: KENNA CASTANEDA on 08/21/21 4523 Last Action: Reviewed Discontinued Medications Hydrochlorothiazide (Hydrochlorothiazide) 50 Mg Tablet, 50 MG PO DAILY, (Reported) Discontinued Reason: No Longer Taking Entered as Reported by: BORA ALMARAZ on 08/09/14 0941 Last Action: Discontinued Meloxicam (Meloxicam) 15 Mg Tablet, 15 MG PO DAILY, (Reported) Discontinued Reason: No Longer Taking Entered as Reported by: SHARON LAURA on 12/21/16 1029 Last Action: Discontinued Multivitamin (Multi Vitamin Daily) 1 Each Tablet, 1 TAB PO DAILY, (Reported) Discontinued Reason: No Longer Taking Entered as Reported by: BORA ALMARAZ on 08/09/14 0943 Last Action: Discontinued Spironolactone (Spironolactone) 25 Mg Tablet, 25 MG PO DAILY, (Reported) Discontinued Reason: No Longer Taking Entered as Reported by: SHARON LAURA on 12/21/16 102 Last Action: Discontinued Past Jarlsla-Apktua-Oijuxa Hx Patient Social History Smoking Status: Former Smoker Type Used: Cigarettes Recent Hopitalizations: No Alcohol Use?: No Have you traveled recently?: No Immunizations Up To Date Tetanus Booster (TDap): More than 5yrs Seasonal Allergies Seasonal Allergies: No Reproductive System Hx Reproductive Disorders: No Sexually Transmitted Disease: No Family Medical History Family Medial History: Diabetes mellitus 19 MOTHER (dmu) Gastroenteritis 19 FATHER (gastric ulcers) Respiratory disorder G8 SISTER (lung ca) Review of Systems-General Constitutional: No chills; dizziness, weakness, weight loss EENTM: No blurred vision, No hoarseness Respiratory: No cough; dyspnea on exertion, short of breath Cardiovascular: chest pain (in her ribs); No palpitations Gastrointestinal: abdominal pain; No constipation, No diarrhea, No dysphagia Genitourinary: No dysuria, No hematuria Musculoskeletal: back pain, muscle weakness Skin: No lesions, No lumps, No rash Psychiatric/Neurological: Denies Anxiety, Denies Depressed; Weakness Physical Exam-General Problems Physical Exam Vital Signs Vital Signs - First Documented 08/20/21 14:01 Temp 36.3 Pulse 95 Resp 16 B/P (MAP) 120/67 (84) Pulse Ox 100 O2 Delivery Nasal Cannula Capillary Refill : Less Than 3 Seconds General Appearance: WD/WN, no apparent distress Eyes: Bilateral Eye Normal Inspection, Bilateral Eye PERRL, Bilateral Eye EOMI HEENT: TMs normal; No scleral icterus (R), No scleral icterus (L) Neck: non-tender, full range of motion, supple, normal inspection Respiratory: lungs clear, normal breath sounds, no respiratory distress, no accessory muscle use Cardiovascular: regular rate, rhythm, no edema, no murmur Peripheral Pulses: 2+ Radial Pulses (R), 2+ Radial Pulses (L) Gastrointestinal: soft, other (Abdomen in protuberent, dull to percussion, fluid wave appreciated) Rectal: deferred Back: no CVA tenderness, no vertebral tenderness Neurologic/Psychiatric: warehouse incentive selector II-XII nml as tested, no motor/sensory deficits, normal mood/affect, oriented x 3 Skin: normal color, warm/dry Lymphatic: no adenopathy (cervical, axilla, groin) Data Review Labs Laboratory Tests 08/20/21 14:20: White Blood Count 5.4, Red Blood Count 2.77L, Hemoglobin 6.8*L, Hematocrit 24L, Mean Corpuscular Volume 85, Mean Corpuscular Hemoglobin 25, Mean Corpuscular Hemoglobin Concent 29L, Red Cell Distribution Width 21.9H, Platelet Count 325, Mean Platelet Volume 9.4, Immature Granulocyte % (Auto) 5, Neutrophils (%) (Auto) 65, Lymphocytes (%) (Auto) 19, Monocytes (%) (Auto) 10, Eosinophils (%) (Auto) 0, Basophils (%) (Auto) 1, Neutrophils # (Auto) 3.5, Lymphocytes # (Auto) 1.0, Monocytes # (Auto) 0.5, Eosinophils # (Auto) 0.0, Basophils # (Auto) 0.1, Immature Granulocyte # (Auto) 0.3H, Prothrombin Time 14.2, INR Comment 1.1, Activated Partial Thromboplast Time 35, Sodium Level 136, Potassium Level 4.0, Chloride Level 100, Carbon Dioxide Level 18L, Anion Gap 18H, Blood Urea Nitrogen 26H, Creatinine 1.78H, Estimat Glomerular Filtration Rate 29, BUN/Creatinine Ratio 15, Glucose Level 155H, Calcium Level 9.7, Corrected Calcium 10.3H, Magnesium Level 2.2, Total Bilirubin 0.5, Aspartate Amino Transf (AST/SGOT) 55H, Alanine Aminotransferase (ALT/SGPT) 30, Alkaline Phosphatase 256H, B-Type Natriuretic Peptide 173.1H, Total Protein 7.5, Albumin 3.3, Lipase 14, Thyroid Stimulating Hormone (TSH) 1.96, Free Thyroxine 1.00 08/21/21 05:46: White Blood Count 6.1, Red Blood Count 3.40L, Hemoglobin 9.1L, Hematocrit 29L, Mean Corpuscular Volume 85, Mean Corpuscular Hemoglobin 27, Mean Corpuscular Hemoglobin Concent 32, Red Cell Distribution Width 19.5H, Platelet Count 229, Mean Platelet Volume 9.0, Immature Granulocyte % (Auto) 4, Neutrophils (%) (Auto) 70, Lymphocytes (%) (Auto) 15, Monocytes (%) (Auto) 10, Eosinophils (%) (Auto) 0, Basophils (%) (Auto) 1, Neutrophils # (Auto) 4.3, Lymphocytes # (Auto) 0.9L, Monocytes # (Auto) 0.6, Eosinophils # (Auto) 0.0, Basophils # (Auto) 0.1, Immature Granulocyte # (Auto) 0.3H, Sodium Level 136, Potassium Level 4.2, Chloride Level 101, Carbon Dioxide Level 18L, Anion Gap 17H, Blood Urea Nitrogen 26H, Creatinine 1.67H, Estimat Glomerular Filtration Rate 31, BUN/Creatinine Ratio 16, Glucose Level 106H, Calcium Level 9.5, Corrected Calcium 10.2H, Total Bilirubin 1.1H, Aspartate Amino Transf (AST/SGOT) 53H, Alanine Aminotransferase (ALT/SGPT) 25, Alkaline Phosphatase 251H, Total Protein 7.2, Albumin 3.1L Assessment/Plan Assessment/Plan Assessment/Plan Metastatic disease with unknown primary Adnexal mass ascites venous insufficiency arthirits . 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 Plan is to perform paracentesis later today. Is being followed by medicine, cardiology, forestry farm laborer appreciate all input Clinical Quality Measures DVT/VTE Risk/Contraindication: Contraindications-Pharm: Other *list below* Other: severe anemia NESTOR VILLANUEVA DO 08/21/211928: History of Present Illness History of Present Illness History of Present Illness Consult requested by Dr. Jiménez for symptomatic ascites. Patient is a 66-year-old female who presents emergency department after having tonic-clonic seizure and found to be severely anemic. Patient has recent history of falling down multiple times at home. She had been feeling weak and lightheaded. She has been short of breath and her abdomen is continued to increase in size. She is lost most of her appetite. She is lost about 70 pounds recently she states. Patient with upper abdominal pain that radiates across her upper abdomen. This worsens with her belly swelling up it is uncomfortable and she rates the pain about a 4 out of 10. Patient has tried multiple things to try to help her reflux but no improvement. Patient is been spitting up bile because coming up. Patient has no other complaints at this time. She denies any fever sweats chills shortness of breath or chest pain. Allergies and Home Medications Allergies Coded Allergies: No Known Drug Allergies (Unverified , 08/09/14) Patient Home Medication List Home Medication List Reviewed: Yes Aspirin (Aspirin EC) 81 Mg Tablet.dr, 81 MG PO DAILY, (Reported) Entered as Reported by: KENNA CASTANEDA on 08/21/211542 Last Action: Reviewed Multivitamin (Multivitamin) 1 Each Tablet, 1 EACH PO DAILY, (Reported) Entered as Reported by: KENNA CASTANEDA on 08/21/211542 Last Action: Reviewed Discontinued Medications Hydrochlorothiazide (Hydrochlorothiazide) 50 Mg Tablet, 50 MG PO DAILY, (Reported) Discontinued Reason: No Longer Taking Entered as Reported by: BORA ALMARAZ on 08/09/14 0941 Last Action: Discontinued Meloxicam (Meloxicam) 15 Mg Tablet, 15 MG PO DAILY, (Reported) Discontinued Reason: No Longer Taking Entered as Reported by: SHARON LAURA on 12/21/16 1029 Last Action: Discontinued Multivitamin (Multi Vitamin Daily) 1 Each Tablet, 1 TAB PO DAILY, (Reported) Discontinued Reason: No Longer Taking Entered as Reported by: BORA ALMARAZ on 08/09/14 0943 Last Action: Discontinued Spironolactone (Spironolactone) 25 Mg Tablet, 25 MG PO DAILY, (Reported) Discontinued Reason: No Longer Taking Entered as Reported by: SHARON LAURA on 12/21/16 1029 Last Action: Discontinued Past Xrz[place]-Kdkslh-Syfbck Hx Reviewed Nursing Assessment Reviewed/Agree w Nursing PMH: Yes Family Medical History Significant Family History: No Pertinent Family Hx Family Medial History: Diabetes mellitus 19 MOTHER (dmu) Gastroenteritis 19 FATHER (gastric ulcers) Respiratory disorder G8 SISTER (lung ca) Review of Systems-General Constitutional: No chills; dizziness, weakness, weight loss EENTM: No blurred vision, No hoarseness Respiratory: No cough, No dyspnea on exertion; short of breath Cardiovascular: chest pain (in her ribs); No palpitations Gastrointestinal: abdominal pain; No constipation, No diarrhea, No dysphagia Genitourinary: No dysuria, No hematuria Musculoskeletal: back pain, muscle weakness Skin: no symptoms reported; No lesions, No lumps, No rash Psychiatric/Neurological: Denies Anxiety, Denies Depressed; Weakness Physical Exam-General Problems Physical Exam General Appearance: WD/WN, no apparent distress HEENT: PERRL/EOMI, TMs normal; No scleral icterus (R), No scleral icterus (L) Respiratory: chest non-tender, no respiratory distress, no accessory muscle use Cardiovascular: regular rate, rhythm, no JVD Gastrointestinal: soft, distended, tenderness (Minimal diffuse abdomen), other (Abdomen in protuberent, dull to percussion, fluid wave appreciated) Back: no CVA tenderness, no vertebral tenderness Extremities: non-tender, normal inspection Neurologic/Psychiatric: no motor/sensory deficits, alert, normal mood/affect, oriented x 3 Skin: normal color, warm/dry Lymphatic: no adenopathy (cervical, axilla, groin) Assessment/Plan Assessment/Plan Assessment/Plan Metastatic disease with unknown primary Adnexal mass symtpomat ascites shortness of breath venous insufficiency arthirits . 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 Plan is to perform paracentesis later today. Is being followed by medicine, cardiology, forestry farm laborer appreciated. Patient understands ultrasound-guided paracentesis risk and benefits and wishes to proceed. We will send fluid for cytology and testing. Patient to proceed Procedure: Ultrasound-guided paracentesis Patient was prepped and draped in sterile fashion after ultrasound was used to isolate the largest pocket in the right lower quadrant. 1% lidocaine 3 mL was used anesthetize the abdominal wall. An 11 blade scalpel was used to make a small skin incision the safety centesis needle and catheter were then advanced through the abdominal wall until straw-colored fluid was withdrawn. The catheter was then advanced over the needle and the needle was removed. A total of 2.85 L of straw-colored fluid was withdrawn and the catheter was removed and sterile bandage was applied. Patient taught procedure well with any complications. Supervisory-Addendum Brief Verification & Attestation Participated in pt care: history, MDM, physical Personally performed: exam, history, MDM, supervision of care Care discussed with: Medical Student Procedures: performed Results interpretation: Verified all documentation Verification and Attestation of Medical Student E/M Service A medical student performed and documented this service in my presence. I reviewed and verified all information documented by the medical student and made modifications to such information, when appropriate. I personally performed the physical exam and medical decision making. Nestor Villanueva, Aug 21, 2021,19:37 MACRINA GILBERT MED STUDENT Aug 21, 2021 11:13 NESTOR VILLANUEVA DO Aug 21, 2021 19:29
--- NOTE | 2021-08-21 12:04 | Progress Note - Hospitalist ---
MARVAMARQUEZ MED STUDENT 08/21/21 1204: Subjective HPI/CC On Admission Date Seen by Provider: Aug 21, 2021 Time Seen by Provider: 08:30 CC: Weakness, abd bloating, N/V Subjective/Events-last exam Pt seen and examined. Mild distress r/t N/V but otherwise pleasant affect. She continues to be nauseated with multiple episodes of vomiting, dark green small- moderate amount. Complains of diffuse abd pain/pressure, BUTLER. No complaints of chest pain/SOB. Seen by Dr. Hernandes, plan for pericentesis later today. She has no questions at this time. Review of Systems General: No Chills; Appetite (loss of appetite w/ 70lb weight loss since March) HEENT: No Head Aches, No Visual Changes, No Eye Pain Pulmonary: Dyspnea (on exertion); No Cough Cardiovascular: No: Chest Pain, Palpitations, Edema Gastrointestinal: Nausea, Vomiting (dark bilious, small-moderate amounts), Abdominal Pain (diffuse); No: Diarrhea, Constipation Genitourinary: No Dysuria, No Incontinence, No Hematuria Musculoskeletal: No: neck pain, shoulder pain, back pain Neurological: Weakness; No: Numbness, Change in speech, Confusion Focused Exam Sepsis Stage: Ruled Out Reason for ruling out sepsis: 0 SIRS, low suspicion of infection Objective Exam Vital Signs Vital Signs Date Time Temp Pulse Resp B/P (MAP) Pulse Ox O2 Delivery O2 Flow Rate FiO2 08/21/21 08:54 37.2 98 20 119/67 (84) 94 Room Air Capillary Refill : Less Than 3 Seconds General Appearance: Anxious, Chronically ill, Mild Distress, Thin HEENT: PERRL/EOMI, Normal ENT Inspection, Pharynx Normal Neck: Full Range of Motion, Normal Inspection, Non Tender, Supple Respiratory: Chest Non Tender, Lungs Clear, Normal Breath Sounds, No Accessory Muscle Use, No Respiratory Distress Cardiovascular: Regular Rate, Rhythm, No Edema, No JVD, Normal Peripheral Pulses Gastrointestinal: Normal Bowel Sounds, Distended, Tenderness (mild) Rectal: Deferred Back: Normal Inspection, No CVA Tenderness, No Vertebral Tenderness Extremity: Normal Capillary Refill, Normal Inspection, Normal Range of Motion, Non Tender, No Calf Tenderness Neurologic/Psychiatric: Alert, Oriented x3, No Motor/Sensory Deficits; No Normal Mood/Affect (anxious) Skin: Normal Color, Warm/Dry Lymphatic: No Adenopathy Results/Procedures Lab Laboratory Tests 08/20/21 14:20 08/21/21 05:46 Patient resulted labs reviewed. Imaging: Reviewed Imaging Films, Reviewed Imaging Report Assessment/Plan Assessment and Plan Assess & Plan/Chief Complaint Metastatic disease w/ R adnexal mass suspicious for ovarian cancer Diffuse skeletal mets seen on CXR, CT head/chest/abd/pelvis N/V poorly controlled with Zofran Continue IVF METHODOLOGIST consult; pending cytology results, may need Surg/Onc or Joy Loading Machine Operator/Onc for debulking Oncology consult MRI brain today Pelvic US today Anemia Hgb 9.1(from 6.8) after 2U PRBC transfusion yesterday Iron panel ordered Continue to monitor Clinical Quality Measures DVT/VTE Risk/Contraindication: Contraindications-Pharm: Other *list below* Other: severe anemia AGNES STAHL DO 08/22/21 0555: Subjective Subjective/Events-last exam Patient doing much better Hemoglobin 9.1 Paracentesis will be performed Review of Systems General: Fatigue Objective Exam General Appearance: No Apparent Distress, WD/WN, Chronically ill Respiratory: Lungs Clear, Normal Breath Sounds Cardiovascular: Regular Rate, Rhythm Neurologic/Psychiatric: Alert, Oriented x3, Depressed Affect Assessment/Plan Assessment and Plan Assess & Plan/Chief Complaint Appreciate Dr. Hernandes Appreciate Dr. Berg Appreciate Dr. MIXON Supervisory-Addendum Brief Verification & Attestation Participated in pt care: history, MDM, physical Personally performed: exam, history, MDM, supervision of care Care discussed with: Medical Student Procedures: n/a Results interpretation: Verified all documentation Verification and Attestation of Medical Student E/M Service A medical student performed and documented this service in my presence. I reviewed and verified all information documented by the medical student and made modifications to such information, when appropriate. I personally performed the physical exam and medical decision making. Agnes Stahl, Aug 22, 2021,05:54 MARQUEZ DURHAM MED STUDENT Aug 21, 2021 12:04 AGNES STAHL DO Aug 22, 2021 05:55
[2021-08-21 12:37] VITALS: BP 126/79
[2021-08-21] MEDS: ACETAMINOPHEN 325 MG TABLET PO PRN (12:57)
--- NOTE | 2021-08-21 14:50 | Diagnostic Imaging Report ---
INDICATION: Ascites. FINDINGS: Sonographic guidance was provided for Dr. Hernandes for performance of a paracentesis. Bilateral upper and lower quadrants were evaluated by ultrasound. There is a large amount of ascites in all quadrants of the abdomen. Catheter was placed by Dr. Hernandes. IMPRESSION: Sonographic guidance for Dr. Hernandes for performance of paracentesis. Dictated by: Dictated on workstation # [id number]
[2021-08-21] MEDS ORDERED: ASPI-1238 PO (15:43)
[2021-08-21] MEDS ORDERED: MULT-1136 PO (15:43)
[2021-08-21 15:58] LABS: GLUCOSE,BODY FLUID 97 MG/DL
[2021-08-21 16:18] VITALS: BP 97/58
[2021-08-21] MEDS ORDERED: REGADENOSON 0.4 MG/5 ML SYR (LEXISCAN) IV ONE (17:45)
[2021-08-21 17:46] LABS: BODY FLUID APPEARENCE MOD CLDY; BODY FLUID COLOR YELLOW; BODY FLUID RBC COUNT 275 /uL; BODY FLUID SOURCE PERITON; BODY FLUID WBC TOTAL COUNT 65 /uL
--- NOTE | 2021-08-21 17:46 | Consultation-Cardiology ---
HPI-Cardiology Cardiology Consultation: Date of Consultation 08/21/2021 Date of Admission 08/20/2021 Attending Physician Agnes Jiménez DO Admitting Physician Titi Delaney - Chc Of Consulting Physician SUZANNE KENNEDY JR, MD HPI: Time Seen by a Provider: 17:41 Chief Complaint: Reason for consultation: Arrhythmia I had the pleasure of seeing May on the medical unit at [facility] in [place], [place] this afternoon. She has no known history of cardiac disease. For about the past 3 weeks she had been having some intermittent abdominal pain associated with nausea and vomiting. She had seen her primary provider and has been taking some antibiotics. However, she has still been having nausea and vomiting. She denies fever, chills, diarrhea, blood in the stool or dark stool. Her appetite has been poor. Over the past couple of weeks she has had 3 separate episodes of syncope. Yesterday she had again gone to seen her primary provider and she was sitting with her in an exam room. Her tells me that her eyes rolled back and she started to slide out of the wheelchai r. The nurse called for the doctor and he came in and they both helped his to the floor. She was subsequently brought to the hospital for further treatment and evaluation. Last evening she was placed on telemetry and had some tachycardia that was thought to be atrial fibrillation. As such, a cardiology consultation was requested. She was also found to have severe anemia. She denies any palpitations. She has had some tightness in her chest but she feels this is related to the vomiting. She has been very weak and short of breath. Just walking across the room was making her short of breath. She denies paroxysmal nocturnal dyspnea, orthopnea, or ankle edema. She denies any previous history of any of these symptoms. She smoked 1 or 2 cigarettes/day up until she got sick a few weeks ago. Certain portions of this document may have been dictated utilizing voice recognition technology. Inherent to this technology, typographical and grammatical errors may exist. As much as I am diligent to identify and correct these mistakes, some errors may remain in the document. Review of Systems-Cardiology Review of Systems Other comments Review of 10 organ systems is as per the history of present illness, otherwise negative. All Other Systems Reviewed Negative Unless Noted: Yes YUK-Ytzvoc-Dklrjo Hx Patient Social History Marrital Status: Employed/Student: unemployed Smoking Status: Never a Smoker Have you traveled recently?: No Alcohol Use?: No Pt feels they are or have been: No Tobacco type used: Cigarettes Immunizations Up To Date Tetanus Booster (TDap): More than 5yrs Past Medical History PMH As described under Assessment. Family Medical History Family History: Diabetes mellitus 19 MOTHER (dmu) Gastroenteritis 19 FATHER (gastric ulcers) Respiratory disorder G8 SISTER (lung ca) Allergies and Home Medications Allergies Coded Allergies: No Known Drug Allergies (Unverified , 08/09/14) Patient Home Medication List Home Medication List Reviewed: Yes Aspirin (Aspirin EC) 81 Mg Tablet.dr, 81 MG PO DAILY, (Reported) Entered as Reported by: KENNA CASTANEDA on 08/21/211542 Last Action: Reviewed Multivitamin (Multivitamin) 1 Each Tablet, 1 EACH PO DAILY, (Reported) Entered as Reported by: KENNA CASTANEDA on 08/21/211542 Last Action: Reviewed Discontinued Medications Hydrochlorothiazide (Hydrochlorothiazide) 50 Mg Tablet, 50 MG PO DAILY, (Reported) Discontinued Reason: No Longer Taking Entered as Reported by: BORA ALMARAZ on 08/09/14 0941 Last Action: Discontinued Meloxicam (Meloxicam) 15 Mg Tablet, 15 MG PO DAILY, (Reported) Discontinued Reason: No Longer Taking Entered as Reported by: SHARON LAURA on 12/21/16 1029 Last Action: Discontinued Multivitamin (Multi Vitamin Daily) 1 Each Tablet, 1 TAB PO DAILY, (Reported) Discontinued Reason: No Longer Taking Entered as Reported by: BORA ALMARAZ on 08/09/14 0943 Last Action: Discontinued Spironolactone (Spironolactone) 25 Mg Tablet, 25 MG PO DAILY, (Reported) Discontinued Reason: No Longer Taking Entered as Reported by: SHARON LAURA on 12/21/16 1029 Last Action: Discontinued Exam Vital Signs Vital Signs Date Time Temp Pulse Resp B/P (MAP) Pulse Ox O2 Delivery O2 Flow Rate FiO2 08/21/21 16:18 36.7 76 18 97/58 (71) 97 Room Air Physical Exam General: Alert. No acute distress. Well nourished and appears stated age. Eye: Extraocular movements are intact. Conjunctivae are clear. There are no xanthelasma. HENT: Normocephalic. Atraumatic. Carotid pulsations 2/2 without bruits. Neck: Jugular venous pressure does not appear elevated. No thyromegaly ap preciated. Respiratory: Lungs are clear to auscultation. Respirations are non-labored. Breath sounds are equal. Symmetrical chest wall expansion. Cardiovascular: Normal rate. Regular rhythm. 2/6 holosystolic murmur at the apex. No gallop. Point of maximal impulse is not appear displaced. Good pulses equal in all extremities. No edema. Gastrointestinal: Soft. Normal bowel sounds. Skin: Skin turgor is normal. There is no pallor. Musculoskeletal: No kyphosis or scoliosis appreciated. Neurologic: Alert and oriented to person, place, time. Cranial nerves 3-12 appear grossly intact. The patient has good motor tone strength in the upper and lower extremities bilaterally. Psychiatric: Cooperative. Appropriate mood & affect. Labs Laboratory Tests Test 08/21/21 05:46 08/21/21 15:08 Range/Units White Blood Count 6.1 4.3-11.0 10^3/uL Red Blood Count 3.40 L 3.80-5.11 10^6/uL Hemoglobin 9.1 L 11.5-16.0 g/dL Hematocrit 29 L 35-52 % Mean Corpuscular Volume 85 80-99 fL Mean Corpuscular Hemoglobin 27 25-34 pg Mean Corpuscular Hemoglobin Concent 32 32-36 g/dL Red Cell Distribution Width 19.5 H 10.0-14.5 % Platelet Count 229 130-400 10^3/uL Mean Platelet Volume 9.0 9.0-12.2 fL Immature Granulocyte % (Auto) 4 % Neutrophils (%) (Auto) 70 42-75 % Lymphocytes (%) (Auto) 15 12-44 % Monocytes (%) (Auto) 10 0-12 % Eosinophils (%) (Auto) 0 0-10 % Basophils (%) (Auto) 1 0-10 % Neutrophils # (Auto) 4.3 1.8-7.8 10^3/uL Lymphocytes # (Auto) 0.9 L 1.0-4.0 10^3/uL Monocytes # (Auto) 0.6 0.0-1.0 10^3/uL Eosinophils # (Auto) 0.0 0.0-0.3 10^3/uL Basophils # (Auto) 0.1 0.0-0.1 10^3/uL Immature Granulocyte # (Auto) 0.3 H 0.0-0.1 10^3/uL Sodium Level 136 135-145 MMOL/L Potassium Level 4.2 3.6-5.0 MMOL/L Chloride Level 101 98-107 MMOL/L Carbon Dioxide Level 18 L 21-32 MMOL/L Anion Gap 17 H 5-14 MMOL/L Blood Urea Nitrogen 26 H 7-18 MG/DL Creatinine 1.67 H 0.60-1.30 MG/DL Estimat Glomerular Filtration Rate 31 BUN/Creatinine Ratio 16 Glucose Level 106 H 70-105 MG/DL Calcium Level 9.5 8.5-10.1 MG/DL Corrected Calcium 10.2 H 8.5-10.1 MG/DL Total Bilirubin 1.1 H 0.1-1.0 MG/DL Aspartate Amino Transf (AST/SGOT) 53 H 5-34 U/L Alanine Aminotransferase (ALT/SGPT) 25 0-55 U/L Alkaline Phosphatase 251 H 40-136 U/L Total Protein 7.2 6.4-8.2 GM/DL Albumin 3.1 L 3.2-4.5 GM/DL Body Fluid Glucose 97 MG/DL Body Fluid Total Protein 4.0 G/DL Radiology Echocardiogram from earlier today showed normal left ventricular chamber size with mild concentric left ventricular hypertrophy. There was normal left ventricular systolic function with an estimated ejection fraction of 60-65%. No regional wall motion abnormalities were identified. The left ventricular diastolic parameters were normal. There was mild mitral regurgitation. There was mild aortic valve sclerosis. There was a left pleural effusion and abdominal ascites. ECG Impression ECG Comment Electrocardiogram obtained from 08/20 at 23: 56 shows sinus tachycardia at 110 bpm with right bundle branch block, frequent premature ventricular complexes as well as a multifocal ventricular triplet. Diagnosis/Problems Diagnosis/Problems (1) Syncope Assessment & Plan: She had 3 separate syncopal spells of unclear etiology. There is no evidence of Lxgaj-Okoiavcxy-Qdzkh, Brugada syndrome, or prolonged QT on her resting electrocardiogram. These episodes may have just been due to her severe anemia and dehydration. On the other hand, she is having ventricular ectopy on her electrocardiogram noted above. Her ejection fraction is normal and there is no valvular heart disease to explain syncope. I recommend further evaluation with a nuclear stress test. I recommend resuming telemetry. (2) Ventricular tachycardia Assessment & Plan: As above, she had a ventricular triplet noted on her electrocardiogram last evening. She has a normal ejection fraction. This raises a concern for coronary ischemia. We will proceed with a stress test tomorrow. (3) Sinus tachycardia Assessment & Plan: This is most likely related to her acute anemia. (4) Mitral regurgitation Assessment & Plan: This is mild and most likely of no clinical consequence. This will need to be followed longitudinally. SUZANNE KENNEDY JR, MD Aug 21, 2021 17:46
[2021-08-21 18:18] LABS: BF OTHER CELLS 22 %; LYMPHOCYTES,BODY FLUID 39 %
[2021-08-21 20:57] VITALS: BP 117/69
[2021-08-22] VITALS (7 sets, daily range): BP systolic 96–126; BP diastolic 52–78
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
[2021-08-22] MEDS: NS IV 1000 ML 1,000 ML IV SCH (03:28)
[2021-08-22 06:03] LABS: BASOPHILS # (AUTO) 0.1 10^3/uL (0.0-0.1); BASOPHILS % (AUTO) 1 % (0-10); EOSINOPHILS # (AUTO) 0.1 10^3/uL (0.0-0.3); EOSINOPHILS % (AUTO) 1 % (0-10); HEMATOCRIT 25 % (35-52); HEMOGLOBIN 7.8 g/dL (11.5-16.0); LYMPHOCYTES # (AUTO) 0.9 10^3/uL (1.0-4.0); LYMPHOCYTES % (AUTO) 18 % (12-44); MEAN CORPUSCULAR HEMOGLOBIN 27 pg (25-34); MEAN CORPUSCULAR HGB CONC 31 g/dL (32-36); MEAN CORPUSCULAR VOLUME 87 fL (80-99); MEAN PLATELET VOLUME 9.1 fL (9.0-12.2); MONOCYTES # (AUTO) 0.6 10^3/uL (0.0-1.0); MONOCYTES % (AUTO) 11 % (0-12); NEUTROPHILS # (AUTO) 3.2 10^3/uL (1.8-7.8); NEUTROPHILS % (AUTO) 66 % (42-75); PLATELET COUNT 196 10^3/uL (130-400); WHITE BLOOD COUNT 4.9 10^3/uL (4.3-11.0)
[2021-08-22 06:21] LABS: ALBUMIN 2.7 GM/DL (3.2-4.5); BILIRUBIN,TOTAL 0.5 MG/DL (0.1-1.0); CALCIUM 8.8 MG/DL (8.5-10.1); CREATININE SERUM 1.55 MG/DL (0.60-1.30); POTASSIUM 4.3 MMOL/L (3.6-5.0); TOTAL PROTEIN 6.3 GM/DL (6.4-8.2)
[2021-08-22] MEDS: CATHETER FLUSH 10 ML SYR IV PRN ×2 (06:56→08:02)
[2021-08-22] MEDS ORDERED: REGADENOSON 0.4 MG/5 ML SYR (LEXISCAN) IV ONE (07:57)
--- NOTE | 2021-08-22 08:29 | Cardiology Progress Note ---
Progress Note-Cardiology Events since last exam Date Seen by Provider: Aug 22, 2021 Time Seen by Provider: 08:00 Events since last exam I am following her due to atrial and ventricular arrhythmias. Her nausea has improved. She denies any further vomiting. She has some mild dyspnea. She denies chest discomfort, palpitations, syncope, or ankle edema. Certain portions of this document may have been dictated utilizing voice recognition technology. Inherent to this technology, typographical and grammatical errors may exist. As much as I am diligent to identify and correct these mistakes, some errors may remain in the document. Vitals Last set of Vitals Signs Vital Signs 08/22/21 08/22/21 04:40 07:58 Temp 36.6 Pulse 101 Resp 16 B/P (MAP) 125/67 (86) Pulse Ox 97 O2 Delivery Room Air Labs Labs Laboratory Tests 08/22/21 05:20 Exam Vital Signs Vital Signs Date Time Temp Pulse Resp B/P (MAP) Pulse Ox O2 Delivery O2 Flow Rate FiO2 08/22/21 07:58 101 16 125/67 (86) 97 Room Air 08/22/21 04:40 36.6 Physical Exam General: Alert. No acute distress. Eye: No xanthelasma. HENT: Normocephalic. Neck: Jugular venous pressure does not appear elevated. Respiratory: Lungs are clear to auscultation. Respirations are non-labored. Breath sounds are equal. Symmetrical chest wall expansion. Cardiovascular: Normal rate. Regular rhythm. 2/6 systolic ejection murmur. No gallop. No edema. Gastrointestinal: Soft. Normal bowel sounds. Skin: Warm. Dry. Neurologic: Alert and oriented to person, place, time. Cranial nerves 3-11 sofía ssly intact. Psychiatric: Cooperative. Appropriate mood & affect. Labs Laboratory Tests Test 08/21/21 15:08 08/22/21 05:20 Range/Units Body Fluid Source PERITON Body Fluid Color YELLOW Body Fluid Appearance MOD CLDY Body Fluid WBC 65 /uL Body Fluid RBC 275 /uL Body Fluid Polynuclear WBCs 5 % Body Fluid Mononuclear WBCs 34 % Body Fluid Lymphocytes 39 % Body Fluid Eosinophils 0 % Body Fluid Other Cells 22 % Body Fluid Glucose 97 MG/DL Body Fluid Total Protein 4.0 G/DL White Blood Count 4.9 4.3-11.0 10^3/uL Red Blood Count 2.92 L 3.80-5.11 10^6/uL Hemoglobin 7.8 L 11.5-16.0 g/dL Hematocrit 25 L 35-52 % Mean Corpuscular Volume 87 80-99 fL Mean Corpuscular Hemoglobin 27 25-34 pg Mean Corpuscular Hemoglobin Concent 31 L 32-36 g/dL Red Cell Distribution Width 20.4 H 10.0-14.5 % Platelet Count 196 130-400 10^3/uL Mean Platelet Volume 9.1 9.0-12.2 fL Immature Granulocyte % (Auto) 2 % Neutrophils (%) (Auto) 66 42-75 % Lymphocytes (%) (Auto) 18 12-44 % Monocytes (%) (Auto) 11 0-12 % Eosinophils (%) (Auto) 1 0-10 % Basophils (%) (Auto) 1 0-10 % Neutrophils # (Auto) 3.2 1.8-7.8 10^3/uL Lymphocytes # (Auto) 0.9 L 1.0-4.0 10^3/uL Monocytes # (Auto) 0.6 0.0-1.0 10^3/uL Eosinophils # (Auto) 0.1 0.0-0.3 10^3/uL Basophils # (Auto) 0.1 0.0-0.1 10^3/uL Immature Granulocyte # (Auto) 0.1 0.0-0.1 10^3/uL Sodium Level 139 135-145 MMOL/L Potassium Level 4.3 3.6-5.0 MMOL/L Chloride Level 107 98-107 MMOL/L Carbon Dioxide Level 17 L 21-32 MMOL/L Anion Gap 15 H 5-14 MMOL/L Blood Urea Nitrogen 23 H 7-18 MG/DL Creatinine 1.55 H 0.60-1.30 MG/DL Estimat Glomerular Filtration Rate 34 BUN/Creatinine Ratio 15 Glucose Level 82 70-105 MG/DL Calcium Level 8.8 8.5-10.1 MG/DL Corrected Calcium 9.8 8.5-10.1 MG/DL Total Bilirubin 0.5 0.1-1.0 MG/DL Aspartate Amino Transf (AST/SGOT) 43 H 5-34 U/L Alanine Aminotransferase (ALT/SGPT) 23 0-55 U/L Alkaline Phosphatase 218 H 40-136 U/L Total Protein 6.3 L 6.4-8.2 GM/DL Albumin 2.7 L 3.2-4.5 GM/DL Diagnosis/Problems Diagnosis/Problems (1) Syncope Assessment & Plan: She had 3 separate syncopal spells prior to admission of unclear etiology. There is no evidence of Mhuqc-Uqgfazjis-Cazei, Brugada syndrome, or prolonged QT on her resting electrocardiogram. These episodes may have just been due to her severe anemia and dehydration that was present on admission. On the other hand, she is having ventricular ectopy on her electrocardiogram and telemetry. Her ejection fraction is normal and there is no valvular heart disease to explain syncope. She underwent her stress test this morning and final imaging and report are pending. (2) Ventricular tachycardia Assessment & Plan: She is having frequent premature ventricular complexes with occasional bigeminy and trigeminy as well as ventricular triplets. This raises a concern for coronary ischemia. Her magnesium level was normal on admission. I have added a magnesium level to the blood sample from this morning. She has a normal ejection fraction. We will await the results of the stress test. If she has a significant amount of ischemia, we may need to consider further evaluation with a cardiac catheterization. (3) Sinus tachycardia Assessment & Plan: This was most likely related to her acute anemia and dehydration. This has improved since admission. I have not seen any definitive evidence of atrial fibrillation. (4) Mitral regurgitation Assessment & Plan: This was an incidental finding on her echocardiogram and is mild and most likely of no clinical consequence. This will need to be followed longitudinally. SUZANNE KENNEDY JR, MD Aug 22, 2021 08:29
[2021-08-22] MEDS: SENNA W/DOCUSATE (SENOKOT S) TABLET PO SCH (09:26)
--- NOTE | 2021-08-22 10:08 | NUCLEAR STRESS TEST ---
REGADENOSON NUCLEAR STRESS Date of procedure: 08/22/2021. Primary care provider: [facility] Admitting physician: Ilan Leo Jr., MD. INDICATION: Ventricular tachycardia. BASELINE ELECTROCARDIOGRAM: Sinus tachycardia at 101 bpm with frequent premature ventricular complexes in a pattern of trigeminy, right bundle branch block, and nonspecific ST changes. STRESS TEST PROCEDURE: The patient was administered 0.4 mg of intravenous Regad enoson. The resting heart rate was 101 bpm and the peak heart rate was 122 bpm. The resting blood pressure was 125/67 mmHg and the minimum blood pressure was 85/60 mmHg. This represents a normal heart rate and a normal blood pressure response to Regadenoson. The test was stopped due to the protocol. There was no chest discomfort during the test. There were frequent premature ventricular complexes as isolated, couplets and triplets beats throughout the duration of the test. There were no significant stress induced electrocardiogram changes. NUCLEAR PROCEDURE: The patient was administered 11 mCi of intravenous technetium 99m Tetrofosmin at rest for the rest images. The patient was subsequently administered 31.7 mCi of intravenous technetium 99m Tetrofosmin at peak stress for the stress images. Following an appropriate wait after each injection, imaging was obtained. The images were subsequently processed and reformatted in the usual views. Gated imaging was obtained. The image quality was adequate w ith a mild degree of gastrointestinal attenuation artifact. CT attenuation correction was used as a adjunct to standard imaging. Both the corrected and uncorrected images were reviewed for interpretation. NUCLEAR RESULTS: There was normal myocardial perfusion in all segments without evidence of infarction or ischemia. There was normal left ventricular chamber size with an end-diastolic volume of 92 mL and an end-systolic volume of 42 mL. There was no evidence of transient ischemic dilatation. The TID ratio was 1.1. There was normal wall motion in all segments with a calculated ejection fraction of 54%. IMPRESSION: 1. Normal heart rate and blood pressure response to regadenoson. 2. There was no chest discomfort during the test. 3. There were frequent premature ventricular complexes throughout the duration of the test as isolated, couplet and triplet beats. 4. There were no electrocardiogram changes during the test. 5. There was normal myocardial perfusion in all segments without evidence of infarction or ischemia. 6. There was normal wall motion in all segments with a calculated ejection fraction of 54%. Certain portions of this document may have been dictated utilizing voice recognition technology. Inherent to this technology, typographical and g rammatical errors may exist. As much as I am diligent to identify and correct these mistakes, some errors may remain in the document. ILAN LEO JR, MD Aug 22, 2021 10:08
--- NOTE | 2021-08-22 11:36 | Progress Note - Hospitalist ---
MARQUEZ DURHAM MED STUDENT 08/22/21 1136: Subjective HPI/CC On Admission Date Seen by Provider: Aug 22, 2021 Time Seen by Provider: 09:10 CC: Weakness, abd bloating, N/V Subjective/Events-last exam Pt seen and examined. She was just returning from having a nuclear stress test. She appears in NAD and more comfortable than yesterday. Nausea/vomiting has improved significantly. Denies chest pain, SOB, fevers/chills, abd pain. She has been able to drink/eat most of her breakfast without issue. Review of Systems General: No Chills, No Fatigue; Appetite (loss of appetite, improved slightly) HEENT: No Head Aches, No Visual Changes, No Ear Pain Pulmonary: No Dyspnea, No Cough Cardiovascular: No: Chest Pain, Palpitations, Edema, Lt Headedness Gastrointestinal: Nausea (improved significantly), Vomiting (no episodes since yesterday); No: Abdominal Pain, Diarrhea, Constipation Genitourinary: No Dysuria, No Frequency, No Incontinence, No Hematuria Musculoskeletal: No: neck pain, shoulder pain, back pain Neurological: Weakness; No: Numbness, Confusion Focused Exam Sepsis Stage: Ruled Out Reason for ruling out sepsis: 1 SIRS, low suspicion of infection Objective Exam Vital Signs Vital Signs Date Time Temp Pulse Resp B/P (MAP) Pulse Ox O2 Delivery O2 Flow Rate FiO2 08/22/21 11:09 37.2 91 16 111/66 (81) 95 Room Air Capillary Refill : Less Than 3 Seconds General Appearance: No Apparent Distress, WD/WN, Thin HEENT: PERRL/EOMI, Normal ENT Inspection, Pharynx Normal Neck: Full Range of Motion, Normal Inspection, Non Tender, Supple Respiratory: Chest Non Tender, Lungs Clear, Normal Breath Sounds, No Accessory Muscle Use, No Respiratory Distress Cardiovascular: No Edema, No JVD, No Murmur, Normal Peripheral Pulses, Tachycardia (HR 80-105) Gastrointestinal: Normal Bowel Sounds, Non Tender, Soft; No Distended, No Guarding; Other (dressing to R abd s/p paracentesis yesterday) Rectal: Deferred Back: Normal Inspection, No CVA Tenderness, No Vertebral Tenderness Extremity: Normal Capillary Refill, Normal Inspection, Normal Range of Motion, Non Tender, No Calf Tenderness, No Pedal Edema Neurologic/Psychiatric: Alert, Oriented x3, No Motor/Sensory Deficits, Normal Mood/Affect Skin: Normal Color, Warm/Dry Lymphatic: No Adenopathy Results/Procedures Lab Laboratory Tests 08/22/21 05:20 Patient resulted labs reviewed. 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 Pelvic US: ascites, complex nodular cystic mass R adnexa Anemia Hgb 7.8(from 9.1) Iron: 195 Continue to monitor, transfuse if needed Afib with multiple PVC triplets, tachycardia Cardiology consulted Stress test 08/22: EF 54%, no evidence of infarct or ischemia TTE 08/21: Mild LV hypertrophy, mild MVR, aortic sclerosis, small L pleural effusion Clinical Quality Measures DVT/VTE Risk/Contraindication: Contraindications-Pharm: Other *list below* Other: severe anemia AGNES STAHL DO 08/23/21 0538: Subjective Subjective/Events-last exam Pt doing well PT and OT will be ordered Heplocking IV fluid Coughing a bit, she is a former smoker Dr. 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 Leo cardiology Ejection fraction was 60% Review of Systems General: Fatigue, Malaise Objective Exam General Appearance: No Apparent Distress, WD/WN, Chronically ill, Thin Respiratory: Lungs Clear, Normal Breath Sounds Cardiovascular: Regular Rate, Rhythm Neurologic/Psychiatric: Alert, Oriented x3 Assessment/Plan Assessment and Plan Assess & Plan/Chief Complaint Monitor hemoglobin Appreciate all consultants Await plan from oncology Supervisory-Addendum Brief Verification & Attestation Participated in pt care: history, MDM, physical Personally performed: exam, history, MDM, supervision of care Care discussed with: Medical Student Procedures: n/a Results interpretation: Verified all documentation Verification and Attestation of Medical Student E/M Service A medical student performed and documented this service in my presence. I reviewed and verified all information documented by the medical student and made modifications to such information, when appropriate. I personally performed the physical exam and medical decision making. Agnes Stahl, Aug 23, 2021,05:37 MARQUEZ DURHAM MED STUDENT Aug 22, 2021 11:36 AGNES STAHL DO Aug 23, 2021 05:38
[2021-08-22] MEDS: ACETAMINOPHEN 325 MG TABLET PO PRN (11:52)
--- NOTE | 2021-08-22 12:21 | Progress Note - Surgery ---
MACRINA GILBERT MED STUDENT 08/22/21 1221: Subjective Date Seen by a Provider: Aug 22, 2021 Time Seen by a Provider: 06:45 Subjective/Events-last exam Patient says she is feeling much better today. Her abdominal discomfort is improved, she has not been nauseous or had any emesis overnight. She is passing gas, but has not had a bowel movement. She is ambulating. Review of Systems General: No Chills, No Night Sweats HEENT: No Head Aches, No Visual Changes Pulmonary: No Dyspnea, No Cough Cardiovascular: No: Chest Pain, Paroxysmal Noc. Dyspnea Gastrointestinal: No: Nausea, Vomiting, Abdominal Pain Genitourinary: No Dysuria, No Hematuria Neurological: Weakness Objective Exam Vital Signs Date Time Temp Pulse Resp B/P (MAP) Pulse Ox O2 Delivery O2 Flow Rate FiO2 08/22/21 11:09 37.2 91 16 111/66 (81) 95 Room Air 08/22/21 09:25 100 08/22/21 09:20 36.6 79 18 120/78 (92) 95 Room Air 08/22/21 09:14 Room Air 08/22/21 07:58 101 16 125/67 (86) 97 Room Air 08/22/21 04:40 36.6 92 20 96/52 (67) 95 Room Air 08/22/21 01:00 101 08/22/21 00:05 36.0 97 18 110/68 (82) 95 Room Air 08/21/21 20:57 37.2 87 18 117/69 (85) 95 Room Air 08/21/21 20:00 Room Air 08/21/21 19:00 104 08/21/21 16:18 36.7 76 18 97/58 (71) 97 Room Air 08/21/21 12:37 37.1 95 18 126/79 (95) 96 Room Air I & O 08/22/21 07:00 Intake Total 1720 ml Balance 1720 ml Capillary Refill : Less Than 3 Seconds General Appearance: No Apparent Distress, WD/WN, Thin HEENT: PERRL/EOMI, Normal ENT Inspection, Pharynx Normal Neck: Full Range of Motion, Normal Inspection, Non Tender, Supple Respiratory: Chest Non Tender, Lungs Clear, Normal Breath Sounds, No Accessory Muscle Use, No Respiratory Distress Cardiovascular: No Edema, No JVD, No Murmur, Normal Peripheral Pulses, Tachycardia (HR 80-105) Peripheral Pulses: 2+ Radial Pulses (R), 2+ Radial Pulses (L) Gastrointestinal: soft, distended, tenderness (improved), other (Abdomen in protuberent, mild fluid wave) Extremity: Normal Capillary Refill, Normal Inspection, Normal Range of Motion, Non Tender, No Calf Tenderness, No Pedal Edema Neurologic/Psychiatric: Alert, Oriented x3, No Motor/Sensory Deficits, Normal Mood/Affect Skin: Normal Color, Warm/Dry Lymphatic: No Adenopathy Results Lab Laboratory Tests 08/21/21 15:08: Body Fluid Source PERITON, Body Fluid Color YELLOW, Body Fluid Appearance MOD CLDY, Body Fluid WBC 65, Body Fluid RBC 275, Body Fluid Polynuclear WBCs 5, Body Fluid Mononuclear WBCs 34, Body Fluid Lymphocytes 39, Body Fluid Eosinophils 0, Body Fluid Other Cells 22, Body Fluid Glucose 97, Body Fluid Total Protein 4.0 08/22/21 05:20: White Blood Count 4.9, Red Blood Count 2.92L, Hemoglobin 7.8L, Hematocrit 25L, Mean Corpuscular Volume 87, Mean Corpuscular Hemoglobin 27, Mean Corpuscular Hemoglobin Concent 31L, Red Cell Distribution Width 20.4H, Platelet Count 196, Mean Platelet Volume 9.1, Immature Granulocyte % (Auto) 2, Neutrophils (%) (Aut o) 66, Lymphocytes (%) (Auto) 18, Monocytes (%) (Auto) 11, Eosinophils (%) (Auto) 1, Basophils (%) (Auto) 1, Neutrophils # (Auto) 3.2, Lymphocytes # (Auto) 0.9L, Monocytes # (Auto) 0.6, Eosinophils # (Auto) 0.1, Basophils # (Auto) 0.1, Immature Granulocyte # (Auto) 0.1, Sodium Level 139, Potassium Level 4.3, Chloride Level 107, Carbon Dioxide Level 17L, Anion Gap 15H, Blood Urea Nitrogen 23H, Creatinine 1.55H, Estimat Glomerular Filtration Rate 34, BUN/Creatinine Ratio 15, Glucose Level 82, Calcium Level 8.8, Corrected Calcium 9.8, Total Bilirubin 0.5, Aspartate Amino Transf (AST/SGOT) 43H, Alanine Aminotransferase (ALT/SGPT) 23, Alkaline Phosphatase 218H, Total Protein 6.3L, Albumin 2.7L 08/22/21 05:52: Magnesium Level 2.2 Microbiology 08/21/21 Gram Stain - Final, Resulted 08/21/21 Anaerobic Culture, Resulted Pending 08/21/21 Body Fluid Culture, Resulted Pending Assessment/Plan Assessment/Plan Assessment/Plan Metastatic disease with unknown primary Adnexal mass symptomatic ascites shortness of breath venous insufficiency arthirits . No surgical intervention planned at this time. She is doing well s/p paracentesis. Will continue to follow. Clinical Quality Measures DVT/VTE Risk/Contraindication: Contraindications-Pharm: Other *list below* Other: severe anemia NESTOR HERNANDES DO 08/22/21 1321: Subjective Subjective/Events-last exam Feeling better today. Abdominal distention improved. Less nausea and emesis. Denies fever sweats chills shortness of breath or chest pain. Objective Exam General Appearance: No Apparent Distress, WD/WN HEENT: PERRL/EOMI, Normal ENT Inspection Neck: Full Range of Motion, Normal Inspection Respiratory: Chest Non Tender, No Accessory Muscle Use, No Respiratory Distress Cardiovascular: No JVD, Tachycardia (HR 80-105) Gastrointestinal: soft, distended (less), tenderness (minimal diffuse) Extremity: Non Tender, No Calf Tenderness Neurologic/Psychiatric: Alert, Oriented x3, No Motor/Sensory Deficits, Normal Mood/Affect Skin: Normal Color, Warm/Dry Lymphatic: No Adenopathy Assessment/Plan Assessment/Plan Assessment/Plan Metastatic disease with unknown primary Adnexal mass symptomatic ascites shortness of breath venous insufficiency arthirits No surgical intervention planned at this time. Await cytology She is doing well s/p paracentesis. Will continue to follow. Supervisory-Addendum Brief Verification & Attestation Participated in pt care: history, MDM, physical Personally performed: exam, history, MDM, supervision of care Care discussed with: Medical Student Procedures: n/a Results interpretation: Verified all documentation Verification and Attestation of Medical Student E/M Service A medical student performed and documented this service in my presence. I reviewed and verified all information documented by the medical student and made modifications to such information, when appropriate. I personally performed the physical exam and medical decision making. Nestor Hernandes, Aug 22, 2021,13:21 MACRINA GILBERT MED STUDENT Aug 22, 2021 12:21 NESTOR HERNANDES DO Aug 22, 2021 13:21
[2021-08-22] MEDS: CALCIUM CARBONATE 500 MG (TUMS) TAB.CHEW PO PRN (16:49)
[2021-08-22] MEDS: ONDANSETRON 4 MG/2 ML (SDV) Z0FRAN IV PRN (16:58)
[2021-08-22] MEDS: PANTOPRAZOLE 40 MG (PROTONIX) TAB PO SCH (17:44)
[2021-08-23] VITALS (8 sets, daily range): BP systolic 98–116; BP diastolic 53–73
[2021-08-23] MEDS: SENNA W/DOCUSATE (SENOKOT S) TABLET PO SCH ×3 (04:42→21:30)
[2021-08-23 05:44] LABS: BASOPHILS % (AUTO) 1 % (0-10); EOSINOPHILS % (AUTO) 1 % (0-10); HEMATOCRIT 27 % (35-52); LYMPHOCYTES # (AUTO) 0.8 10^3/uL (1.0-4.0); LYMPHOCYTES % (AUTO) 17 % (12-44); MEAN CORPUSCULAR HEMOGLOBIN 26 pg (25-34); MEAN CORPUSCULAR HGB CONC 30 g/dL (32-36); MEAN CORPUSCULAR VOLUME 88 fL (80-99); MEAN PLATELET VOLUME 9.5 fL (9.0-12.2); MONOCYTES # (AUTO) 0.5 10^3/uL (0.0-1.0); MONOCYTES % (AUTO) 12 % (0-12); NEUTROPHILS # (AUTO) 2.9 10^3/uL (1.8-7.8); NEUTROPHILS % (AUTO) 67 % (42-75); PLATELET COUNT 195 10^3/uL (130-400); WHITE BLOOD COUNT 4.4 10^3/uL (4.3-11.0)
[2021-08-23 06:03] LABS: ALBUMIN 2.7 GM/DL (3.2-4.5); BILIRUBIN,TOTAL 0.7 MG/DL (0.1-1.0); CALCIUM 8.8 MG/DL (8.5-10.1); CREATININE SERUM 1.47 MG/DL (0.60-1.30); POTASSIUM 4.2 MMOL/L (3.6-5.0); TOTAL PROTEIN 6.2 GM/DL (6.4-8.2)
--- NOTE | 2021-08-23 07:24 | Progress Note - Surgery ---
MAGOToyJUAN LARSON 08/23/21 0724: Subjective Date Seen by a Provider: Aug 23, 2021 Time Seen by a Provider: 07:18 Subjective/Events-last exam Today Moira is resting comfortably in bed; she states her pain is minimal aside from left-sided rib pain, which she has experienced before. She reports she v omited yesterday night following meal and stress test. She has not had a bowel movement since admission, but states that this is likely because she has not been eating. Moira continues to cough up phlegm/clear her throat, which she states is 2/2 an accident she had years ago, which caused a lung puncture. She continues to have a burning sensation in her throat suggestive of GERD and vomitus. Her appetite continues to gradually improve. She presently does not have any complaints, and continues to be pleasant and conversational. Stress test performed yesterday revealed multiple PVCs (isolated, couplet and triplet beats); procedure well-tolerated, aside from stomach upset 2/2 IV Regadenoson. Review of Systems General: Fatigue HEENT: No Head Aches, No Visual Changes Pulmonary: No Dyspnea; Cough Cardiovascular: No: Chest Pain, Edema Gastrointestinal: Nausea, Vomiting, Abdominal Pain (improved), Diarrhea, Constipation Genitourinary: No Dysuria, No Frequency Musculoskeletal: other (L-sided rib pain at the site of previous injury) Neurological: No: Change in speech, Confusion Focused Exam Respiratory: Chest Non Tender, Lungs Clear, Normal Breath Sounds, No Accessory Muscle Use, No Respiratory Distress Cardiovascular: Regular Rate, Rhythm, No Edema, No Gallop, No JVD, No Murmur Capillary Refill: Less Than 3 Seconds Peripheral Pulses: 2+ Radial Pulses (R), 2+ Radial Pulses (L) Skin: normal color, warm/dry Objective Exam Vital Signs Date Time Temp Pulse Resp B/P (MAP) Pulse Ox O2 Delivery O2 Flow Rate FiO2 08/23/21 06:01 38.0 98 18 98/58 (71) Room Air 08/23/21 04:45 38.0 98 18 98/58 (71) 92 08/23/21 01:00 90 08/23/21 00:10 37.0 52 16 116/73 (87) 97 08/22/21 20:00 Room Air 08/22/21 19:57 36.4 98 22 126/68 (87) 98 Room Air 08/22/21 19:00 90 08/22/21 16:09 36.4 75 28 121/70 (87) 95 Room Air 08/22/21 14:03 95 Room Air 08/22/21 12:42 100 08/22/21 11:09 37.2 91 16 111/66 (81) 95 Room Air 08/22/21 09:25 100 08/22/21 09:20 36.6 79 18 120/78 (92) 95 Room Air 08/22/21 09:14 Room Air 08/22/21 07:58 101 16 125/67 (86) 97 Room Air I & O 08/23/21 07:00 Intake Total 1960 ml Output Total 1722 ml Balance 238 ml Capillary Refill : Less Than 3 Seconds General Appearance: No Apparent Distress, WD/WN, Chronically ill, Thin HEENT: PERRL/EOMI, Normal ENT Inspection Neck: Full Range of Motion, Normal Inspection Respiratory: Lungs Clear, Normal Breath Sounds, No Accessory Muscle Use, No Respiratory Distress Cardiovascular: Regular Rate, Rhythm, No Edema, No Gallop, No JVD, No Murmur, Normal Peripheral Pulses Peripheral Pulses: 2+ Radial Pulses (R), 2+ Radial Pulses (L) Gastrointestinal: normal bowel sounds, non tender, soft, distended (less), tenderness (minimal diffuse) Extremity: Normal Capillary Refill, Non Tender, No Calf Tenderness Neurologic/Psychiatric: Alert, Oriented x3, No Motor/Sensory Deficits Skin: Normal Color, Warm/Dry Lymphatic: No Adenopathy Results Lab Laboratory Tests 08/22/21 16:15: Lab Scanned Report Transfusion Reaction Form 08/23/21 05:22: White Blood Count 4.4, Red Blood Count 3.05L, Hemoglobin 8.0L, Hematocrit 27L, Mean Corpuscular Volume 88, Mean Corpuscular Hemoglobin 26, Mean Corpuscular Hemoglobin Concent 30L, Red Cell Distribution Width 20.5H, Platelet Count 195, Mean Platelet Volume 9.5, Immature Granulocyte % (Auto) 2, Neutrophils (%) (Auto) 67, Lymphocytes (%) (Auto) 17, Monocytes (%) (Auto) 12, Eosinophils (%) (Auto) 1, Basophils (%) (Auto) 1, Neutrophils # (Auto) 2.9, Lymphocytes # (Auto) 0.8L, Monocytes # (Auto) 0.5, Eosinophils # (Auto) 0.0, Basophils # (Auto) 0.0, Immature Granulocyte # (Auto) 0.1, Sodium Level 137, Potassium Level 4.2, Chloride Level 103, Carbon Dioxide Level 19L, Anion Gap 15H, Blood Urea Nitrogen 22H, Creatinine 1.47H, Estimat Glomerular Filtration Rate 36, BUN/Creatinine Ratio 15, Glucose Level 84, Calcium Level 8.8, Corrected Calcium 9.8, Total Bilirubin 0.7, Aspartate Amino Transf (AST/SGOT) 48H, Alanine Aminotransferase (ALT/SGPT) 22, Alkaline Phosphatase 227H, Total Protein 6.2L, Albumin 2.7L Microbiology 08/21/21 Gram Stain - Final, Resulted 08/21/21 Anaerobic Culture, Resulted Pending 08/21/21 Body Fluid Culture - Preliminary, Resulted No growth Meds Item Value Date Time Pantoprazole 40 mg 08/22/21 1730 Sodium DAILY/PO 08/22/21 1744 (Protonix Tablet) Senna 2 ea 08/20/21 2100 (Senokot S BID/PO Tablet) Albuterol Sulfate 2.5 mg 08/20/21 2030 (Proventil RTBID PRN/INH Pre-Mix Nebs (Rt)) Acetaminophen 650 mg 08/20/21 1900 (Tylenol Tablet) Q4H PRN/PO 08/22/21 1152 Melatonin 3 mg 08/20/21 1845 (Melatonin HS PRN/PO Tablet) Acetaminophen/ 1 ea 08/20/21 1845 Hydrocodone Bitart Q4H PRN/PO (Lortab 5 Mg Tablet) Diphenhydramine 25 mg 08/20/21 1845 HCl Q6H PRN/PO (Benadryl Tablet) Docusate Sodium 100 mg 08/20/21 1845 (Colace Capsule) BID PRN/PO Calcium Carbonate 500 mg 08/20/21 1845 (Antacid TID PRN/PO 08/22/21 1649 Chewable Tablet) Alprazolam 0.25 mg 08/20/21 1845 (Xanax Tablet) Q8H PRN/PO Sodium Chloride 10-40 ML 08/20/21 1800 (Catheter Flush NEEDED PRN/IV 08/22/21 0802 Syringe) Ondansetron HCl 8 mg 08/20/21 1800 (Zofran Q6H PRN/IV 08/22/21 1658 Injection (Sdv)) Fentanyl Citrate 50 mcg 08/20/21 1800 (Sublimaze Q2H PRN/IV Injection) Lorazepam 0.5 mg 08/20/21 1800 (Ativan Q6H PRN/IV Injection) Lorazepam 1 mg 08/20/21 1800 (Ativan Q5M PRN/IV Injection) Procedures IMPRESSION: 1. Normal heart rate and blood pressure response to regadenoson. 2. There was no chest discomfort during the test. 3. There were frequent premature ventricular complexes throughout the duration of the test as isolated, couplet and triplet beats. 4. There were no electrocardiogram changes during the test. 5. There was normal myocardial perfusion in all segments without evidence of infarction or ischemia. 6. There was normal wall motion in all segments with a calculated ejection fraction of 54%. Assessment/Plan Assessment/Plan Assessment/Plan Metastatic disease with unknown primary Adnexal mass symptomatic ascites shortness of breath venous insufficiency arthirits No surgical intervention planned at this time. Await cytology She is doing well s/p paracentesis. Will continue to follow. Clinical Quality Measures DVT/VTE Risk/Contraindication: Contraindications-Pharm: Other *list below* Other: severe anemia NESTOR HERNANDES DO 08/23/211911: Subjective Subjective/Events-last exam Patient states she is doing okay with discomfort. Patient having poor oral intake. Still having some nausea and emesis at times. This is usually related to after she tries to eat something. Patient coughing up phlegm. No other complaints at this time. She denies any nausea vomiting fever sweats chills s hortness of breath or chest pain at this time. Objective Exam General Appearance: No Apparent Distress, Chronically ill HEENT: PERRL/EOMI, Normal ENT Inspection Neck: Normal Inspection, Supple Respiratory: Chest Non Tender, No Accessory Muscle Use, No Respiratory Distress Cardiovascular: Regular Rate, Rhythm, No JVD Gastrointestinal: soft, distended (Minimal), tenderness (minimal diffuse) Extremity: Non Tender Neurologic/Psychiatric: Alert, Oriented x3 Skin: Normal Color, Warm/Dry Lymphatic: No Adenopathy Assessment/Plan Assessment/Plan Assessment/Plan Metastatic disease with unknown primary Adnexal mass symptomatic ascites shortness of breath arthirits Await final pathology from paracentesis. Symptomatic control. If abdomen continues to increase in size may need repeat paracentesis. Will follow. Supervisory-Addendum Brief Verification & Attestation Participated in pt care: history, MDM, physical Personally performed: exam, history, MDM, supervision of care Care discussed with: Medical Student Procedures: n/a Results interpretation: Verified all documentation Verification and Attestation of Medical Student E/M Service A medical student performed and documented this service in my presence. I reviewed and verified all information documented by the medical student and made modifications to such information, when appropriate. I personally performed the physical exam and medical decision making. Nestor Hernandes, Aug 23, 2021,19:11 JUAN GARG Aug 23, 2021 07:24 NESTOR HERNANDES DO Aug 23, 2021 19:12
[2021-08-23] MEDS: PANTOPRAZOLE 40 MG (PROTONIX) TAB PO SCH (08:33)
--- NOTE | 2021-08-23 09:16 | Cardiology Progress Note ---
Progress Note-Cardiology Events since last exam Date Seen by Provider: Aug 23, 2021 Time Seen by Provider: 09:12 Events since last exam I am following her for atrial and ventricular ectopy. She underwent a nuclear stress test on 08/22 that was normal. She does complain of some occasional palpitations with the sensation of a fluttering in her chest. She denies associated symptoms. She denies chest discomfort, dyspnea at rest, syncope, or ankle edema. Certain portions of this document may have been dictated utilizing voice recognition technology. Inherent to this technology, typographical and grammatical errors may exist. As much as I am diligent to identify and correct these mistakes, some errors may remain in the document. Vitals Last set of Vitals Signs Vital Signs 08/23/21 07:50 Temp 36.8 Pulse 74 Resp 20 B/P (MAP) 112/66 (81) Pulse Ox 96 O2 Delivery Room Air Labs Labs Laboratory Tests 08/23/21 05:22 Exam Vital Signs Vital Signs Date Time Temp Pulse Resp B/P (MAP) Pulse Ox O2 Delivery O2 Flow Rate FiO2 08/23/21 07:50 36.8 74 20 112/66 (81) 96 Room Air Physical Exam General: Alert. No acute distress. Eye: No xanthelasma. HENT: Normocephalic. Neck: Jugular venous pressure does not appear elevated. Respiratory: Lungs are clear to auscultation. Respirations are non-labored. Breath sounds are equal. Symmetrical chest wall expansion. Cardiovascular: Normal rate. Regularly irregular rhythm. 2/6 systolic murmur. No gallop. No edema. Gastrointestinal: Soft. Normal bowel sounds. Skin: Warm. Dry. Neurologic: Alert and oriented to person, place, time. Cranial nerves 3-11 grossly intact. Psychiatric: Cooperative. Appropriate mood & affect. Labs Laboratory Tests Test 08/22/21 16:15 08/23/21 05:22 Range/Units Lab Scanned Report Transfusion Reaction Form [id number] White Blood Count 4.4 4.3-11.0 10^3/uL Red Blood Count 3.05 L 3.80-5.11 10^6/uL Hemoglobin 8.0 L 11.5-16.0 g/dL Hematocrit 27 L 35-52 % Mean Corpuscular Volume 88 80-99 fL Mean Corpuscular Hemoglobin 26 25-34 pg Mean Corpuscular Hemoglobin Concent 30 L 32-36 g/dL Red Cell Distribution Width 20.5 H 10.0-14.5 % Platelet Count 195 130-400 10^3/uL Mean Platelet Volume 9.5 9.0-12.2 fL Immature Granulocyte % (Auto) 2 % Neutrophils (%) (Auto) 67 42-75 % Lymphocytes (%) (Auto) 17 12-44 % Monocytes (%) (Auto) 12 0-12 % Eosinophils (%) (Auto) 1 0-10 % Basophils (%) (Auto) 1 0-10 % Neutrophils # (Auto) 2.9 1.8-7.8 10^3/uL Lymphocytes # (Auto) 0.8 L 1.0-4.0 10^3/uL Monocytes # (Auto) 0.5 0.0-1.0 10^3/uL Eosinophils # (Auto) 0.0 0.0-0.3 10^3/uL Basophils # (Auto) 0.0 0.0-0.1 10^3/uL Immature Granulocyte # (Auto) 0.1 0.0-0.1 10^3/uL Sodium Level 137 135-145 MMOL/L Potassium Level 4.2 3.6-5.0 MMOL/L Chloride Level 103 98-107 MMOL/L Carbon Dioxide Level 19 L 21-32 MMOL/L Anion Gap 15 H 5-14 MMOL/L Blood Urea Nitrogen 22 H 7-18 MG/DL Creatinine 1.47 H 0.60-1.30 MG/DL Estimat Glomerular Filtration Rate 36 BUN/Creatinine Ratio 15 Glucose Level 84 70-105 MG/DL Calcium Level 8.8 8.5-10.1 MG/DL Corrected Calcium 9.8 8.5-10.1 MG/DL Total Bilirubin 0.7 0.1-1.0 MG/DL Aspartate Amino Transf (AST/SGOT) 48 H 5-34 U/L Alanine Aminotransferase (ALT/SGPT) 22 0-55 U/L Alkaline Phosphatase 227 H 40-136 U/L Total Protein 6.2 L 6.4-8.2 GM/DL Albumin 2.7 L 3.2-4.5 GM/DL Diagnosis/Problems Diagnosis/Problems (1) Syncope Assessment & Plan: She had 3 separate syncopal spells prior to admission of unclear etiology. There is no evidence of Xcjsz-Znjvzkdls-Ghcji, Brugada syndrome, or prolonged QT on her resting electrocardiogram. These episodes may have just been due to her severe anemia and dehydration that was present on admission. On the other hand, she is having ventricular ectopy on her electrocardiogram and telemetry. Her ejection fraction is normal and there is no valvular heart disease to explain syncope. She underwent a stress test on 08/22 that showed normal perfusion with a normal ejection fraction. I will start her on low-dose beta-georgette. She should continue on telemetry. I will consider a Holter monitor after discharge. (2) Ventricular tachycardia Assessment & Plan: She is having frequent premature ventricular complexes with occasional bigeminy and trigeminy as well as ventricular triplets. Her magnesium level has been normal. As above, she has a normal ejection fraction and normal myocardial perfusion on her stress test. This may be a benign condition. I will initiate therapy with low-dose beta-georgette. We will need to watch her blood pressure closely because she does not have a history of hypertension. I will consider an outpatient Holter monitor to assess the total ventricular ectopy burden after discharge. (3) Sinus tachycardia Assessment & Plan: This was most likely related to her acute anemia and dehydration. This has improved since admission. I have not seen any definitive evidence of atrial fibrillation. (4) Mitral regurgitation Assessment & Plan: This was an incidental finding on her echocardiogram and is mild and most likely of no clinical consequence. This will need to be followed longitudinally. SUZANNE KENNEDY JR, MD Aug 23, 2021 09:16
[2021-08-23] MEDS: LACTATED RINGERS 1,000 ML IV SCH ×2 (11:57→21:30)
--- NOTE | 2021-08-23 15:33 | Progress Note - Hospitalist ---
MARQUEZ DURHAM MED STUDENT 08/23/21 1533: Subjective HPI/CC On Admission Date Seen by Provider: Aug 23, 2021 Time Seen by Provider: 07:50 CC: Weakness, abd bloating, N/V Subjective/Events-last exam Pt seen and examined. She was awake, alert, and in mild distress r/t N/V. She states that her nausea, vomiting, and abd discomfort has worsened since yesterday and hasn't been able to keep food/liquids down. She has been tolerating ice chips. Also complains of a new headache since her stress test yesterday. Otherwise, no new overnight events. Denies chest pain, SOB, fevers/chills. Review of Systems General: No Chills, No Fatigue HEENT: Head Aches; No Visual Changes, No Ear Pain Pulmonary: No Dyspnea; Cough (chronic) Cardiovascular: No: Chest Pain, Edema, Lt Headedness Gastrointestinal: Nausea, Vomiting, Abdominal Pain, Other (last bm a few days ago, states she is passing flatus); No: Diarrhea, Constipation Genitourinary: No Dysuria, No Incontinence, No Hematuria Musculoskeletal: No: neck pain, shoulder pain, back pain Neurological: Weakness; No: Numbness, Confusion Focused Exam Sepsis Stage: Ruled Out Reason for ruling out sepsis: 0 SIRS, low suspicion of infection Objective Exam Vital Signs Vital Signs Date Time Temp Pulse Resp B/P (MAP) Pulse Ox O2 Delivery O2 Flow Rate FiO2 08/23/21 11:40 36.8 85 20 108/55 (72) 95 Room Air Capillary Refill : Less Than 3 Seconds General Appearance: WD/WN, Anxious, Mild Distress HEENT: PERRL/EOMI, Normal ENT Inspection, Pharynx Normal Neck: Full Range of Motion, Normal Inspection, Non Tender, Supple Respiratory: Chest Non Tender, Lungs Clear, Normal Breath Sounds, No Accessory Muscle Use, No Respiratory Distress Cardiovascular: Regular Rate, Rhythm, No Edema, No JVD, Normal Peripheral Pulses, Other (occasional early beats) Gastrointestinal: Normal Bowel Sounds, Soft, Tenderness (mild diffuse tenderness) Rectal: Deferred Back: Normal Inspection, No CVA Tenderness, No Vertebral Tenderness Extremity: Normal Capillary Refill, Normal Inspection, Normal Range of Motion, Non Tender, No Calf Tenderness, No Pedal Edema Neurologic/Psychiatric: Alert, Oriented x3, No Motor/Sensory Deficits, Normal Mood/Affect Skin: Normal Color, Warm/Dry Lymphatic: No Adenopathy Results/Procedures Lab Laboratory Tests 08/23/21 05:22 Patient resulted labs reviewed. Imaging: Reviewed Imaging Films, Reviewed Imaging Report Assessment/Plan Assessment and Plan Assess & Plan/Chief Complaint Metastatic disease w/ R adnexal mass suspicious for ovarian cancer Diffuse skeletal mets seen on CXR, CT head/chest/abd/pelvis N/V worse since yesterday, not tolerating PO solids/liquids; restart IVF Oncology consulted; CA-125 147.7, awaiting cytology Anemia Hgb 8.0(from 7.8) Iron: 195 Continue to monitor, transfuse if needed Afib with multiple PVC triplets, tachycardia Cardiology consulted; started on Metoprolol 25mg, continue telemetry Stress test 08/22: EF 54%, no evidence of infarct or ischemia TTE 08/21: Mild LV hypertrophy, mild MVR, aortic sclerosis, small L pleural effusion Clinical Quality Measures DVT/VTE Risk/Contraindication: Contraindications-Pharm: Other *list below* Other: severe anemia AGNES STAHL DO 08/24/21 0535: Subjective Subjective/Events-last exam Patient having more nausea and vomiting 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 Needs gynecology oncology Review of Systems Gastrointestinal: Nausea, Vomiting Objective Exam General Appearance: WD/WN, Anxious, Chronically ill, Mild Distress Respiratory: Lungs Clear, Normal Breath Sounds Cardiovascular: Regular Rate, Rhythm Neurologic/Psychiatric: Alert, Oriented x3, No Motor/Sensory Deficits, Normal Mood/Affect Assessment/Plan Assessment and Plan Assess & Plan/Chief Complaint Mucinous adenocarcinoma needs gynecology oncology expertise We will try to reach out to [facility] Supervisory-Addendum Brief Verification & Attestation Participated in pt care: history, MDM, physical Personally performed: exam, history, MDM, supervision of care Care discussed with: Medical Student Procedures: n/a Results interpretation: Verified all documentation Verification and Attestation of Medical Student E/M Service A medical student performed and documented this service in my presence. I reviewed and verified all information documented by the medical student and made modifications to such information, when appropriate. I personally performed the physical exam and medical decision making. Agnes Stahl, Aug 24, 2021,05:32 MARQUEZ DURHAM MED STUDENT Aug 23, 2021 15:33 AGNES STAHL DO Aug 24, 2021 05:35
--- NOTE | 2021-08-23 16:52 | Progress Note ---
Standard Progress Note Progress Notes/Assess & Plan Date Seen by a Provider: Aug 23, 2021 Time Seen by a Provider: 16:47 Progress/Assessment & Plan 66-year-old female admitted to the hospital with significant ascites and right adnexal mass. 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 Ca1 to 5 level elevated at 147.7. Discussed these findings with the patient and Dr. Jiménez. Patient would need to see a gynecologic oncologist for further evaluation. If she needs neoadjuvant or adjuvant chemotherapy, this can be arranged locally. She complained of significant nausea and intermittent dry heaves or vomiting. Oral intake is minimal. Patient completed cardiac work-up including a stress test yesterday with no evidence of ischemia. She has atrial and ventricular premature beats which makes her heart rate irregular. Continue recommendations from cardiology. Will follow patient with you. IRINEO SALDANA Aug 23, 2021 16:52
[2021-08-23] MEDS: ONDANSETRON 4 MG/2 ML (SDV) Z0FRAN IV PRN (21:30)
[2021-08-24 03:52] VITALS: BP 119/66
[2021-08-24 05:44] LABS: BASOPHILS % (AUTO) 1 % (0-10); EOSINOPHILS % (AUTO) 1 % (0-10); HEMATOCRIT 26 % (35-52); HEMOGLOBIN 7.8 g/dL (11.5-16.0); LYMPHOCYTES # (AUTO) 0.8 10^3/uL (1.0-4.0); LYMPHOCYTES % (AUTO) 23 % (12-44); MEAN CORPUSCULAR HEMOGLOBIN 26 pg (25-34); MEAN CORPUSCULAR HGB CONC 30 g/dL (32-36); MEAN CORPUSCULAR VOLUME 87 fL (80-99); MEAN PLATELET VOLUME 9.5 fL (9.0-12.2); MONOCYTES # (AUTO) 0.5 10^3/uL (0.0-1.0); MONOCYTES % (AUTO) 13 % (0-12); NEUTROPHILS # (AUTO) 2.1 10^3/uL (1.8-7.8); NEUTROPHILS % (AUTO) 59 % (42-75); PLATELET COUNT 184 10^3/uL (130-400); WHITE BLOOD COUNT 3.5 10^3/uL (4.3-11.0)
[2021-08-24 06:12] LABS: ALBUMIN 2.6 GM/DL (3.2-4.5); BILIRUBIN,TOTAL 0.6 MG/DL (0.1-1.0); CALCIUM 8.8 MG/DL (8.5-10.1); CREATININE SERUM 1.39 MG/DL (0.60-1.30); POTASSIUM 4.2 MMOL/L (3.6-5.0); TOTAL PROTEIN 5.9 GM/DL (6.4-8.2)
[2021-08-24 07:21] VITALS: BP 119/68
--- NOTE | 2021-08-24 07:46 | Progress Note - Surgery ---
JUAN GARG 08/24/21 0745: Subjective Date Seen by a Provider: Aug 24, 2021 Time Seen by a Provider: 07:43 Subjective/Events-last exam May is doing well today; she denies any pain, nausea, and vomiting. She states that she had a bowel movement last night, and continues to sip on liquids and eat ice chips. 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 Review of Systems General: Fatigue, Malaise HEENT: No Head Aches, No Visual Changes Pulmonary: No Dyspnea; Cough Cardiovascular: No: Chest Pain, Palpitations Gastrointestinal: No: Nausea (improving), Vomiting (improving) Genitourinary: No Dysuria, No Frequency Musculoskeletal: No: arm pain, leg pain Neurological: No: Change in speech, Confusion Focused Exam Respiratory: Chest Non Tender, Lungs Clear Cardiovascular: Regular Rate, Rhythm, No Edema, No Gallop, No Murmur Peripheral Pulses: 2+ Radial Pulses (R), 2+ Radial Pulses (L) Skin: normal color, warm/dry Objective Exam Vital Signs Date Time Temp Pulse Resp B/P (MAP) Pulse Ox O2 Delivery O2 Flow Rate FiO2 08/24/21 07:21 36.9 70 20 119/68 (85) 95 Room Air 08/24/21 07:00 96 08/24/21 03:52 36.6 83 20 119/66 (83) 96 Room Air 08/24/21 01:00 85 08/23/21 23:30 36.7 86 18 112/58 (76) 97 Room Air 08/23/21 20:11 36.8 83 20 98/53 (68) 96 Room Air 08/23/21 20:00 Room Air 08/23/21 19:00 90 08/23/21 16:09 36.8 51 20 107/53 (71) 96 Room Air 08/23/21 11:40 36.8 85 20 108/55 (72) 95 Room Air 08/23/21 08:00 96 Room Air 08/23/21 07:50 36.8 74 20 112/66 (81) 96 Room Air I & O 08/24/21 06:59 Intake Total 1590 ml Output Total 1200 ml Balance 390 ml Capillary Refill : Less Than 3 Seconds General Appearance: WD/WN, Chronically ill, Mild Distress HEENT: PERRL/EOMI, Normal ENT Inspection Neck: Normal Inspection, Supple Respiratory: Lungs Clear, Normal Breath Sounds, No Accessory Muscle Use, No Respiratory Distress Cardiovascular: Regular Rate, Rhythm, No Edema, No Gallop, No Murmur, Normal Peripheral Pulses Peripheral Pulses: 2+ Radial Pulses (R), 2+ Radial Pulses (L) Gastrointestinal: non tender, soft, distended (Minimal), tenderness (minimal diffuse) Extremity: Non Tender, No Pedal Edema Neurologic/Psychiatric: Alert, Oriented x3, No Motor/Sensory Deficits, Normal Mood/Affect Skin: Normal Color, Warm/Dry Lymphatic: No Adenopathy Results Lab Laboratory Tests 08/24/21 05:04: White Blood Count 3.5L, Red Blood Count 3.00L, Hemoglobin 7.8L, Hematocrit 26L, Mean Corpuscular Volume 87, Mean Corpuscular Hemoglobin 26, Mean Corpuscular Hemoglobin Concent 30L, Red Cell Distribution Width 20.4H, Platelet Count 184, Mean Platelet Volume 9.5, Immature Granulocyte % (Auto) 4, Neutrophils (%) (Auto) 59, Lymphocytes (%) (Auto) 23, Monocytes (%) (Auto) 13H, Eosinophils (%) (Auto) 1, Basophils (%) (Auto) 1, Neutrophils # (Auto) 2.1, Lymphocytes # (Auto) 0.8L, Monocytes # (Auto) 0.5, Eosinophils # (Auto) 0.0, Basophils # (Auto) 0.0, Immature Granulocyte # (Auto) 0.1, Sodium Level 136, Potassium Level 4.2, Chloride Level 104, Carbon Dioxide Level 19L, Anion Gap 13, Blood Urea Nitrogen 22H, Creatinine 1.39H, Estimat Glomerular Filtration Rate 38, BUN/Creatinine Ratio 16, Glucose Level 83, Calcium Level 8.8, Corrected Calcium 9.9, Total Bilirubin 0.6, Aspartate Amino Transf (AST/SGOT) 47H, Alanine Aminotransferase (ALT/SGPT) 22, Alkaline Phosphatase 221H, Total Protein 5.9L, Albumin 2.6L Microbiology 08/21/21 Gram Stain - Final, Resulted 08/21/21 Anaerobic Culture - Preliminary, Resulted No anaerobes isolated 08/21/21 Body Fluid Culture - Preliminary, Resulted No growth Assessment/Plan Assessment/Plan Assessment/Plan Metastatic disease with unknown primary Adnexal mass symptomatic ascites shortness of breath arthritis Await final pathology from paracentesis. Symptomatic control. If abdomen continues to increase in size may need repeat paracentesis. Will follow. Clinical Quality Measures DVT/VTE Risk/Contraindication: Contraindications-Pharm: Other *list below* Other: severe anemia NESTOR HERNANDES DO 08/24/21 1047: Subjective Subjective/Events-last exam Patient is doing well. She is tolerating little bit more diet. She is not having abdominal pain. Does not feel like she is about distended to where she needs to be drained again. Patient pathology with mucinous adenocarcinoma. She has no other complaints. She denies any fever sweats chills shortness of breath or chest pain. 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 If abdomen continues to increase in size may need repeat paracentesis Patient if needs please call me. Patient discussed may need port, which we can place if needed. Will sign off at this time, call if needed. Supervisory-Addendum Brief Verification & Attestation Participated in pt care: history, MDM, physical Personally performed: exam, history, MDM, supervision of care Care discussed with: Medical Student Procedures: n/a Results interpretation: Verified all documentation Verification and Attestation of Medical Student E/M Service A medical student performed and documented this service in my presence. I reviewed and verified all information documented by the medical student and made modifications to such information, when appropriate. I personally performed the physical exam and medical decision making. Nestor Hernandes, Aug 24, 2021,10:47 JUAN GARG Aug 24, 2021 07:45 NESTOR HERNANDES DO Aug 24, 2021 10:47
[2021-08-24] MEDS: LACTATED RINGERS 1,000 ML IV SCH ×2 (07:54→20:21)
[2021-08-24] MEDS: SENNA W/DOCUSATE (SENOKOT S) TABLET PO SCH ×2 (07:54→20:21)
[2021-08-24] MEDS: PANTOPRAZOLE 40 MG (PROTONIX) TAB PO SCH (07:54)
--- NOTE | 2021-08-24 09:12 | Cardiology Progress Note ---
Progress Note-Cardiology Events since last exam Date Seen by Provider: Aug 24, 2021 Time Seen by Provider: 09:11 Events since last exam I am following her for atrial and ventricular arrhythmias. She denies chest discomfort, dyspnea, palpitations, syncope, or ankle edema. She seems to be tolerating the low-dose beta-georgette which was started on 08/23. Certain portions of this document may have been dictated utilizing voice recognition technology. Inherent to this technology, typographical and grammatical errors may exist. As much as I am diligent to identify and correct these mistakes, some errors may remain in the document. Vitals Last set of Vitals Signs Vital Signs 08/24/21 07:21 Temp 36.9 Pulse 70 Resp 20 B/P (MAP) 119/68 (85) Pulse Ox 95 O2 Delivery Room Air Labs Labs Laboratory Tests 08/24/21 05:04 Exam Vital Signs Vital Signs Date Time Temp Pulse Resp B/P (MAP) Pulse Ox O2 Delivery O2 Flow Rate FiO2 08/24/21 07:21 36.9 70 20 119/68 (85) 95 Room Air Physical Exam General: Alert. No acute distress. Eye: No xanthelasma. HENT: Normocephalic. Neck: Jugular venous pressure does not appear elevated. Respiratory: Lungs are clear to auscultation. Respirations are non-labored. Breath sounds are equal. Symmetrical chest wall expansion. Cardiovascular: Normal rate. Regularly irregular rhythm. 2/6 systolic murmur. No gallop. No edema. Gastrointestinal: Soft. Normal bowel sounds. Skin: Warm. Dry. Neurologic: Alert and oriented to person, place, time. Cranial nerves 3-11 grossly intact. Psychiatric: Cooperative. Appropriate mood & affect. Labs Laboratory Tests Test 08/24/21 05:04 Range/Units White Blood Count 3.5 L 4.3-11.0 10^3/uL Red Blood Count 3.00 L 3.80-5.11 10^6/uL Hemoglobin 7.8 L 11.5-16.0 g/dL Hematocrit 26 L 35-52 % Mean Corpuscular Volume 87 80-99 fL Mean Corpuscular Hemoglobin 26 25-34 pg Mean Corpuscular Hemoglobin Concent 30 L 32-36 g/dL Red Cell Distribution Width 20.4 H 10.0-14.5 % Platelet Count 184 130-400 10^3/uL Mean Platelet Volume 9.5 9.0-12.2 fL Immature Granulocyte % (Auto) 4 % Neutrophils (%) (Auto) 59 42-75 % Lymphocytes (%) (Auto) 23 12-44 % Monocytes (%) (Auto) 13 H 0-12 % Eosinophils (%) (Auto) 1 0-10 % Basophils (%) (Auto) 1 0-10 % Neutrophils # (Auto) 2.1 1.8-7.8 10^3/uL Lymphocytes # (Auto) 0.8 L 1.0-4.0 10^3/uL Monocytes # (Auto) 0.5 0.0-1.0 10^3/uL Eosinophils # (Auto) 0.0 0.0-0.3 10^3/uL Basophils # (Auto) 0.0 0.0-0.1 10^3/uL Immature Granulocyte # (Auto) 0.1 0.0-0.1 10^3/uL Sodium Level 136 135-145 MMOL/L Potassium Level 4.2 3.6-5.0 MMOL/L Chloride Level 104 98-107 MMOL/L Carbon Dioxide Level 19 L 21-32 MMOL/L Anion Gap 13 5-14 MMOL/L Blood Urea Nitrogen 22 H 7-18 MG/DL Creatinine 1.39 H 0.60-1.30 MG/DL Estimat Glomerular Filtration Rate 38 BUN/Creatinine Ratio 16 Glucose Level 83 70-105 MG/DL Calcium Level 8.8 8.5-10.1 MG/DL Corrected Calcium 9.9 8.5-10.1 MG/DL Total Bilirubin 0.6 0.1-1.0 MG/DL Aspartate Amino Transf (AST/SGOT) 47 H 5-34 U/L Alanine Aminotransferase (ALT/SGPT) 22 0-55 U/L Alkaline Phosphatase 221 H 40-136 U/L Total Protein 5.9 L 6.4-8.2 GM/DL Albumin 2.6 L 3.2-4.5 GM/DL Diagnosis/Problems Diagnosis/Problems (1) Syncope Assessment & Plan: She had 3 separate syncopal spells prior to admission of unclear etiology. There is no evidence of [id number]-[id number]-Xqrea, Brugada syndrome, or prolonged QT on her resting electrocardiogram. These episodes may have just been due to her severe anemia and dehydration that was present on admission. On the other hand, she is having ventricular ectopy on her electrocardiogram and telemetry. Her ejection fraction is normal and there is no valvular heart disease to explain syncope. She underwent a stress test on 08/22 that showed normal perfusion with a normal ejection fraction. I will start her on low-dose beta-georgette. She should continue on telemetry. I will consider a Holter monitor after discharge. At this point in time, there do not appear to be any acute, active cardiac issues. As such, cardiology will sign off. I will have the unit leader schedule the patient for a follow-up visit to see me in approximately 1 month following discharge. Please call if you have other questions or concerns. (2) Ventricular tachycardia Assessment & Plan: She is having frequent premature ventricular complexes with occasional bigeminy and trigeminy as well as ventricular triplets. Her magnesium level has been normal. As above, she has a normal ejection fraction and normal myocardial perfusion on her stress test. This may be a benign condition. Should continue on low-dose beta-georgette. We will need to watch her blood pressure closely because she does not have a history of hypertension. I will consider an outpatient Holter monitor to assess the total ventricular ectopy burden after discharge. (3) Sinus tachycardia Assessment & Plan: Was present on admission. I had initially been called because there was a question about whether or not she had atrial fibrillation. The sinus tachycardia was most likely related to her acute anemia and dehydration. This has improved since admission. I have not seen any definitive evidence of atrial fibrillation. (4) Mitral regurgitation Assessment & Plan: This was an incidental finding on her echocardiogram and is mild and most likely of no clinical consequence. This will need to be followed longitudinally. SUZANNE KENNEDY JR, MD Aug 24, 2021 09:12
[2021-08-24] MEDS ORDERED: MTP25TSR PO (09:44)
[2021-08-24 11:40] VITALS: BP 100/52
--- NOTE | 2021-08-24 14:32 | Progress Note - Hospitalist ---
MARQUEZ DURHAM MED STUDENT 08/24/21 1432: Subjective HPI/CC On Admission Date Seen by Provider: Aug 24, 2021 Time Seen by Provider: 07:10 CC: Weakness, abd bloating, N/V Subjective/Events-last exam Pt seen and examined. She was resting in bed, NAD. States that her nausea/vomiting has improved since yesterday and she is tolerating PO solids/liquids better today. Complains of increased abd discomfort. Experienced an episode of bowel incontinence last night after receiving a laxative. Continu es to have a chronic cough. No complaints of chest pain, SOB. Hospital course: May was admitted on 08/20/21 for abd discomfort, weakness, and syncope. Initial workup revealed anemia for which she was transfused 2U PRBC, after which her Hgb stabilized. CXR showed evidence of metastasis to the ribs. Head CT showed diffuse metastasis to the calvarium with no acute brain parenchymal changes. Chest/Abd/Pelvis CT revealed mets throughout skeleton, ascites, R adnexal mass, lobulated liver, splenomegaly, and cholelithiasis. General surgery was consulted and performed a paracentesis that ultimately revealed cells consistent with ovarian adenocarcinoma. Cardiology was consulted for arrhythmia and syncopal episodes. TTE was performed and revealed EF 60-65, mild LV hypertrophy, mild MVR, and aortic sclerosis. Nuclear stress test showed EF 54%, multiple PVC's with doublets and triplets, but otherwise no evidence of infarct or ischemia. Oncology was consulted; CA 125 was obtained and resulted 147.7H, further supporting diagnosis of ovarian cancer. Brain MRI showed metastatic changes consistent with the CT findings, with no evidence of brain parenchymal mass lesions. Pelvis US showed ascites and R adnexal mass consistent with the CT findings. Her hospital course was complicated by fluctuating levels of nausea, vomiting, abd discomfort, and intolerance to PO intake. By time of discharge, her nausea, vomiting, and abd pain improved significantly and she was able to tolerate PO solids/liquids. Review of Systems General: No Chills; Fatigue, Appetite HEENT: No Head Aches, No Visual Changes, No Ear Pain Pulmonary: No Dyspnea; Cough (chronic) Cardiovascular: Palpitations; No: Chest Pain, Edema, Lt Headedness Gastrointestinal: Nausea, Vomiting, Abdominal Pain, Other (1x loose bowel movement last night); No: Diarrhea, Constipation, Melena Genitourinary: No Dysuria, No Incontinence, No Hematuria Musculoskeletal: No: neck pain, shoulder pain, back pain Neurological: Weakness; No: Numbness, Change in speech, Confusion Focused Exam Sepsis Stage: Ruled Out Reason for ruling out sepsis: 0 SIRS, low suspicion of infection Objective Exam Vital Signs Vital Signs Date Time Temp Pulse Resp B/P (MAP) Pulse Ox O2 Delivery O2 Flow Rate FiO2 08/24/21 12:27 84 08/24/21 11:40 36.5 18 100/52 (68) 96 Room Air Capillary Refill : Less Than 3 Seconds General Appearance: No Apparent Distress, Anxious, Chronically ill, Thin HEENT: PERRL/EOMI, Normal ENT Inspection, Pharynx Normal Neck: Full Range of Motion, Normal Inspection, Non Tender, Supple Respiratory: Chest Non Tender, Lungs Clear, Normal Breath Sounds, No Accessory Muscle Use, No Respiratory Distress Cardiovascular: Regular Rate, Rhythm, No Edema, No JVD, No Murmur, Normal Peripheral Pulses, Irregularly Irregular Gastrointestinal: Normal Bowel Sounds, Soft, Tenderness (mild) Rectal: Deferred Back: Normal Inspection, No CVA Tenderness, No Vertebral Tenderness Extremity: Normal Capillary Refill, Normal Inspection, Normal Range of Motion, Non Tender, No Calf Tenderness Neurologic/Psychiatric: Alert, Oriented x3, No Motor/Sensory Deficits, Normal Mood/Affect Skin: Normal Color, Warm/Dry Lymphatic: No Adenopathy Results/Procedures Lab Laboratory Tests 08/24/21 05:04 Patient resulted labs reviewed. Imaging: Reviewed Imaging Films, Reviewed Imaging Report Assessment/Plan Assessment and Plan Assess & Plan/Chief Complaint Metastatic ovarian cancer Diffuse skeletal mets seen on CXR, CT head/chest/abd/pelvis, MRI brain N/V improved, tolerating some PO solids/liquids; reduce IVF Oncology consulted; CA-125 147.7, cytology shows adenocarcinoma, recommends transfer/referral for Computer Compositor/Onc services Anemia Hgb stable Continue to monitor, transfuse if needed Afib with multiple PVC triplets, tachycardia Cardiology consulted; started on Metoprolol 25mg, continue telemetry Stress test 08/22: EF 54%, no evidence of infarct or ischemia TTE 08/21: Mild LV hypertrophy, mild MVR, aortic sclerosis, small L pleural effusion Discuss with pt about options regarding her diagnosis, management, referral, and their preference about how to move forward. Clinical Quality Measures DVT/VTE Risk/Contraindication: Contraindications-Pharm: Other *list below* Other: severe anemia AGNES STAHL DO 08/25/21 0851: Subjective Subjective/Events-last exam Dr. Quevedo spoke with gynecology oncology and recommended CEA and CA 199 Needs EGD and colonoscopy Dr. Hernandes will perform that on Friday Review of Systems Gastrointestinal: Nausea, Vomiting Objective Exam General Appearance: No Apparent Distress, WD/WN, Chronically ill Respiratory: No Accessory Muscle Use, No Respiratory Distress, Decreased Breath Sounds Cardiovascular: Regular Rate, Rhythm Assessment/Plan Assessment and Plan Assess & Plan/Chief Complaint Obtain CEA and 199 EGD and colonoscopy Friday Supervisory-Addendum Brief Verification & Attestation Participated in pt care: history, MDM, physical Personally performed: exam, history, MDM, supervision of care Care discussed with: Medical Student Procedures: n/a Results interpretation: Verified all documentation Verification and Attestation of Medical Student E/M Service A medical student performed and documented this service in my presence. I reviewed and verified all information documented by the medical student and made modifications to such information, when appropriate. I personally performed the physical exam and medical decision making. Agnes Stahl, Aug 25, 2021,08:50 MARQUEZ DURHAM MED STUDENT Aug 24, 2021 14:32 AGNES STAHL DO Aug 25, 2021 08:51
[2021-08-24 15:45] VITALS: BP 113/56
[2021-08-24 19:23] VITALS: BP 98/53
[2021-08-24] MEDS: ACETAMINOPHEN 325 MG TABLET PO PRN (20:22)
[2021-08-25 00:15] VITALS: BP 118/67
[2021-08-25 04:18] VITALS: BP 99/65
[2021-08-25 07:16] LABS: BASOPHILS # (AUTO) 0.1 10^3/uL (0.0-0.1); BASOPHILS % (AUTO) 1 % (0-10); EOSINOPHILS # (AUTO) 0.1 10^3/uL (0.0-0.3); EOSINOPHILS % (AUTO) 1 % (0-10); HEMATOCRIT 27 % (35-52); HEMOGLOBIN 8.1 g/dL (11.5-16.0); LYMPHOCYTES # (AUTO) 0.9 10^3/uL (1.0-4.0); LYMPHOCYTES % (AUTO) 23 % (12-44); MEAN CORPUSCULAR HEMOGLOBIN 26 pg (25-34); MEAN CORPUSCULAR HGB CONC 30 g/dL (32-36); MEAN CORPUSCULAR VOLUME 88 fL (80-99); MEAN PLATELET VOLUME 9.2 fL (9.0-12.2); MONOCYTES # (AUTO) 0.5 10^3/uL (0.0-1.0); MONOCYTES % (AUTO) 13 % (0-12); NEUTROPHILS # (AUTO) 2.1 10^3/uL (1.8-7.8); NEUTROPHILS % (AUTO) 57 % (42-75); PLATELET COUNT 172 10^3/uL (130-400); WHITE BLOOD COUNT 3.7 10^3/uL (4.3-11.0)
[2021-08-25 07:50] LABS: ALBUMIN 2.7 GM/DL (3.2-4.5); BILIRUBIN,TOTAL 0.6 MG/DL (0.1-1.0); CALCIUM 9.1 MG/DL (8.5-10.1); CREATININE SERUM 1.33 MG/DL (0.60-1.30); POTASSIUM 4.3 MMOL/L (3.6-5.0); TOTAL PROTEIN 6.4 GM/DL (6.4-8.2)
[2021-08-25 07:55] VITALS: BP 111/63
[2021-08-25] MEDS: PANTOPRAZOLE 40 MG (PROTONIX) TAB PO SCH (08:10)
[2021-08-25] MEDS: SENNA W/DOCUSATE (SENOKOT S) TABLET PO SCH ×2 (08:11→20:50)
[2021-08-25] MEDS: LACTATED RINGERS 1,000 ML IV SCH ×2 (08:12→22:13)
[2021-08-25] MEDS: ACETAMINOPHEN 325 MG TABLET PO PRN ×2 (08:18→20:49)
--- NOTE | 2021-08-25 10:42 | Progress Note ---
Standard Progress Note Progress Notes/Assess & Plan Date Seen by a Provider: Aug 25, 2021 Time Seen by a Provider: 10:38 Progress/Assessment & Plan 66-year-old female admitted to the hospital with significant ascites and right adnexal mass. 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 Ca125 level elevated at 147.7. Discussed the case with Dr. Baron at [facility]. Because of the histology, appendiceal or GI origin needs to be ruled out. Her recommendation was to obtain CEA and CA 199 level as baseline and complete an EGD and colonoscopy. If no GI primary is identified, will contact Dr. Baron for SENIOR DIRECTOR ONC work-up. Will obtain serum iron studies because of anemia. Will follow patient with you. IRINEO SALDANA Aug 25, 2021 10:42
[2021-08-25 12:00] VITALS: BP 105/64
--- NOTE | 2021-08-25 12:08 | Progress Note - Hospitalist ---
Subjective HPI/CC On Admission Date Seen by Provider: Aug 25, 2021 Time Seen by Provider: 12:05 CC: Weakness, abd bloating, N/V Subjective/Events-last exam Patient sleeping soundly Labs reviewed Appreciate Dr. Quevedo EGD and colonoscopy on Friday Review of Systems General: Fatigue, Malaise Objective Exam Vital Signs Vital Signs Date Time Temp Pulse Resp B/P (MAP) Pulse Ox O2 Delivery O2 Flow Rate FiO2 08/26/21 04:23 37.2 98 20 101/51 (68) 98 Room Air Capillary Refill : Less Than 3 Seconds General Appearance: No Apparent Distress, WD/WN, Chronically ill Respiratory: Lungs Clear, Normal Breath Sounds Cardiovascular: Regular Rate, Rhythm Results/Procedures Lab Laboratory Tests 08/25/21 07:02 Patient resulted labs reviewed. Imaging: Reviewed Imaging Films, Reviewed Imaging Report Assessment/Plan Assessment and Plan Assess & Plan/Chief Complaint Assessment: Neoplastic process with widespread metastasis Anemia status post transfusion Atrial fibrillation Plan: Obtain CEA and 199 EGD and colonoscopy Friday Clinical Quality Measures DVT/VTE Risk/Contraindication: Contraindications-Pharm: Other *list below* Other: severe anemia BELKIS STAHL DO Aug 25, 2021 12:08
[2021-08-25 15:18] VITALS: BP 129/56
[2021-08-25 19:03] VITALS: BP 104/62
[2021-08-26 00:38] VITALS: BP 100/51
[2021-08-26 04:23] VITALS: BP 101/51
[2021-08-26] MEDS: CALCIUM CARBONATE 500 MG (TUMS) TAB.CHEW PO PRN ×2 (05:07→23:25)
[2021-08-26] MEDS: ONDANSETRON 4 MG/2 ML (SDV) Z0FRAN IV PRN ×3 (05:07→23:25)
[2021-08-26 06:31] LABS: BASOPHILS % (AUTO) 1 % (0-10); EOSINOPHILS % (AUTO) 1 % (0-10); HEMATOCRIT 29 % (35-52); HEMOGLOBIN 8.5 g/dL (11.5-16.0); LYMPHOCYTES # (AUTO) 0.8 10^3/uL (1.0-4.0); LYMPHOCYTES % (AUTO) 21 % (12-44); MEAN CORPUSCULAR HEMOGLOBIN 26 pg (25-34); MEAN CORPUSCULAR HGB CONC 30 g/dL (32-36); MEAN CORPUSCULAR VOLUME 88 fL (80-99); MEAN PLATELET VOLUME 9.3 fL (9.0-12.2); MONOCYTES # (AUTO) 0.4 10^3/uL (0.0-1.0); MONOCYTES % (AUTO) 12 % (0-12); NEUTROPHILS # (AUTO) 2.2 10^3/uL (1.8-7.8); NEUTROPHILS % (AUTO) 62 % (42-75); PLATELET COUNT 178 10^3/uL (130-400); WHITE BLOOD COUNT 3.6 10^3/uL (4.3-11.0)
[2021-08-26 06:51] LABS: ALBUMIN 2.7 GM/DL (3.2-4.5); BILIRUBIN,TOTAL 0.7 MG/DL (0.1-1.0); CALCIUM 8.9 MG/DL (8.5-10.1); CREATININE SERUM 1.32 MG/DL (0.60-1.30); POTASSIUM 4.3 MMOL/L (3.6-5.0); TOTAL PROTEIN 6.1 GM/DL (6.4-8.2)
[2021-08-26] MEDS ORDERED: GOLYTELY POWDER 4000 ML BTL PO ONE (07:00)
[2021-08-26 07:27] VITALS: BP 108/68
[2021-08-26] MEDS: PANTOPRAZOLE 40 MG (PROTONIX) TAB PO SCH (07:58)
[2021-08-26] MEDS: SENNA W/DOCUSATE (SENOKOT S) TABLET PO SCH ×2 (07:58→20:02)
[2021-08-26 11:04] VITALS: BP 130/65
--- NOTE | 2021-08-26 11:48 | Progress Note - Hospitalist ---
Subjective HPI/CC On Admission Date Seen by Provider: Aug 26, 2021 Time Seen by Provider: 11:00 CC: Weakness, abd bloating, N/V Subjective/Events-last exam Patient having a lot of nausea Gentle IV fluids maintained Prep for EGD and colonoscopy continues Prognosis poor Review of Systems Gastrointestinal: Nausea, Vomiting Objective Exam Vital Signs Vital Signs Date Time Temp Pulse Resp B/P (MAP) Pulse Ox O2 Delivery O2 Flow Rate FiO2 08/26/21 16:00 36.6 98 18 111/73 (86) 98 Room Air Capillary Refill : Less Than 3 Seconds General Appearance: No Apparent Distress, WD/WN, Chronically ill Respiratory: No Accessory Muscle Use, No Respiratory Distress, Decreased Breath Sounds Cardiovascular: Regular Rate, Rhythm Results/Procedures Lab Laboratory Tests 08/26/21 06:12 Patient resulted labs reviewed. Imaging: Reviewed Imaging Films, Reviewed Imaging Report Assessment/Plan Assessment and Plan Assess & Plan/Chief Complaint Assessment: Neoplastic process with widespread metastasis Anemia status post transfusion Atrial fibrillation Plan: Obtain CEA and 199 EGD and colonoscopy Friday08/26/2021: Colonoscopy tomorrow EGD tomorrow Clinical Quality Measures DVT/VTE Risk/Contraindication: Contraindications-Pharm: Other *list below* Other: severe anemia BELKIS STAHL DO Aug 26, 2021 11:48
[2021-08-26] MEDS: LACTATED RINGERS 1,000 ML IV SCH ×2 (13:03→23:15)
[2021-08-26 16:00] VITALS: BP 111/73
[2021-08-26] MEDS ORDERED: MAGNESIUM CITRATE 300 ML BTL PO ONE (18:15)
[2021-08-26] MEDS: PROMETHAZINE INJ 25 MG/ML (PHENERGAN) AMP IM PRN (18:20)
[2021-08-26] MEDS ORDERED: MAGNESIUM CITRATE 300 ML BTL ONE (18:35)
[2021-08-26 20:00] VITALS: BP 116/71
[2021-08-27] VITALS (7 sets, daily range): BP systolic 119–137; BP diastolic 55–89
[2021-08-27 06:49] LABS: BASOPHILS # (AUTO) 0.1 10^3/uL (0.0-0.1); BASOPHILS % (AUTO) 1 % (0-10); EOSINOPHILS % (AUTO) 0 % (0-10); HEMATOCRIT 30 % (35-52); LYMPHOCYTES # (AUTO) 0.7 10^3/uL (1.0-4.0); LYMPHOCYTES % (AUTO) 13 % (12-44); MEAN CORPUSCULAR HEMOGLOBIN 27 pg (25-34); MEAN CORPUSCULAR HGB CONC 30 g/dL (32-36); MEAN CORPUSCULAR VOLUME 87 fL (80-99); MEAN PLATELET VOLUME 9.4 fL (9.0-12.2); MONOCYTES # (AUTO) 0.6 10^3/uL (0.0-1.0); MONOCYTES % (AUTO) 11 % (0-12); NEUTROPHILS # (AUTO) 3.7 10^3/uL (1.8-7.8); NEUTROPHILS % (AUTO) 71 % (42-75); PLATELET COUNT 213 10^3/uL (130-400); WHITE BLOOD COUNT 5.2 10^3/uL (4.3-11.0)
[2021-08-27 07:10] LABS: ALBUMIN 2.9 GM/DL (3.2-4.5)
[2021-08-27 07:11] LABS: POTASSIUM 4.6 MMOL/L (3.6-5.0)
[2021-08-27 07:12] LABS: CALCIUM 9.3 MG/DL (8.5-10.1)
[2021-08-27 07:13] LABS: TOTAL PROTEIN 6.7 GM/DL (6.4-8.2)
[2021-08-27 07:15] LABS: BILIRUBIN,TOTAL 0.8 MG/DL (0.1-1.0)
[2021-08-27 07:17] LABS: CREATININE SERUM 1.66 MG/DL (0.60-1.30)
[2021-08-27] MEDS: PROMETHAZINE INJ 25 MG/ML (PHENERGAN) AMP IM PRN ×2 (07:30→16:12)
--- NOTE | 2021-08-27 07:38 | Progress Note - Surgery ---
MAGOToyJUAN LARSON 08/27/21 0738: Subjective Date Seen by a Provider: Aug 27, 2021 Time Seen by a Provider: 07:33 Subjective/Events-last exam May is doubled over in abdominal pain, and vomiting at bedside; emesis is dark brown/black in color. She has difficulty speaking due to significant pain. She is unable to keep any food or drink down, and had a bowel movement last night. She attempted to complete the bowel regimen for the EGD and colonoscopy that was originally planned for today (08/27/21), but was unable to tolerate due to intractable N/V. Both anti-emetics and anti-acids have not been helpful. States that additional cold towel/ice pack and another dose of antiemetic may help. Her abdomen appears increased in size and is tender to touch. Review of Systems General: Fatigue, Malaise HEENT: No Head Aches Pulmonary: No Dyspnea, No Cough Cardiovascular: No: Chest Pain, Palpitations Gastrointestinal: Nausea, Vomiting, Abdominal Pain Genitourinary: No Dysuria, No Frequency Musculoskeletal: No: arm pain Neurological: Weakness; No: Change in speech Focused Exam Respiratory: No Accessory Muscle Use, No Respiratory Distress Cardiovascular: No Edema, No Gallop Peripheral Pulses: 2+ Radial Pulses (R), 2+ Radial Pulses (L) Skin: normal color, warm/dry, diaphoresis Objective Exam Vital Signs Date Time Temp Pulse Resp B/P (MAP) Pulse Ox O2 Delivery O2 Flow Rate FiO2 08/27/21 03:34 36.6 107 14 122/55 (77) 94 Room Air 08/27/21 01:00 111 08/27/21 00:35 36.5 114 18 119/67 (84) 97 Room Air 08/26/21 20:00 37.5 118 20 116/71 (86) 96 Room Air 08/26/21 19:00 100 08/26/21 19:00 Room Air 08/26/21 18:45 100 Room Air 08/26/21 16:00 36.6 98 18 111/73 (86) 98 Room Air 08/26/21 12:46 94 08/26/21 11:04 36.3 97 20 130/65 (86) 97 Room Air 08/26/21 11:00 Room Air 08/26/21 08:06 99 Room Air I & O 08/27/21 07:00 Intake Total 830 ml Output Total 350 ml Balance 480 ml Capillary Refill : Less Than 3 Seconds General Appearance: WD/WN, Chronically ill, Mild Distress HEENT: PERRL/EOMI, Normal ENT Inspection, Pharynx Normal Neck: Full Range of Motion, Normal Inspection, Non Tender, Supple Respiratory: No Accessory Muscle Use, No Respiratory Distress, Decreased Breath Sounds Cardiovascular: Regular Rate, Rhythm Peripheral Pulses: 2+ Radial Pulses (R), 2+ Radial Pulses (L) Gastrointestinal: non tender, soft, distended (Minimal), tenderness (minimal diffuse) Extremity: Normal Capillary Refill, Normal Inspection, Normal Range of Motion, Non Tender, No Calf Tenderness Neurologic/Psychiatric: Alert, Oriented x3, No Motor/Sensory Deficits, Normal Mood/Affect Skin: Normal Color, Warm/Dry Lymphatic: No Adenopathy Results Lab Laboratory Tests 08/27/21 06:05: White Blood Count 5.2, Red Blood Count 3.40L, Hemoglobin 9.0L, Hematocrit 30L, Mean Corpuscular Volume 87, Mean Corpuscular Hemoglobin 27, Mean Corpuscular Hemoglobin Concent 30L, Red Cell Distribution Width 21.2H, Platelet Count 213, Mean Platelet Volume 9.4, Immature Granulocyte % (Auto) 4, Neutrophils (%) (Auto) 71, Lymphocytes (%) (Auto) 13, Monocytes (%) (Auto) 11, Eosinophils (%) (Auto) 0, Basophils (%) (Auto) 1, Neutrophils # (Auto) 3.7, Lymphocytes # (Auto) 0.7L, Monocytes # (Auto) 0.6, Eosinophils # (Auto) 0.0, Basophils # (Auto) 0.1, Immature Granulocyte # (Auto) 0.2H, Sodium Level 137, Potassium Level 4.6, Chloride Level 100, Carbon Dioxide Level 16L, Anion Gap 21H, Blood Urea Nitrogen 24H, Creatinine 1.66H, Estimat Glomerular Filtration Rate 31, BUN/Creatinine Ratio 14, Glucose Level 96, Calcium Level 9.3, Corrected Calcium 10.2H, Total Bilirubin 0.8, Aspartate Amino Transf (AST/SGOT) 64H, Alanine Aminotransferase (ALT/SGPT) 28, Alkaline Phosphatase 259H, Total Protein 6.7, Albumin 2.9L Microbiology 08/25/21 MRSA Screen - Final, Complete MRSA not isolated 08/21/21 Gram Stain - Final, Resulted 08/21/21 Anaerobic Culture - Preliminary, Resulted No anaerobes isolated 08/21/21 Body Fluid Culture - Final, Resulted No growth Meds Item Value Date Time Magnesium Citrate 300 ml 08/26/21 1815 (Citrate Of ONCE ONCE/PO 08/26/21 1840 Magnesia Oral Solution) Promethazine HCl 25 mg 08/26/21 1400 (Phenergan Q6H PRN/IM 08/27/21 0730 Injection) Lactated Ringer's 1,000 ml @ 75 mls/hr 08/23/21 1130 Metoprolol 25 mg 08/23/21 0900 Succinate DAILY/PO 08/26/21 0758 (Toprol Xl Tablet) Pantoprazole 40 mg 08/22/21 1730 Sodium DAILY/PO 08/26/21 0758 (Protonix Tablet) Senna 2 ea 08/20/21 2100 (Senokot S BID/PO 08/26/212001 Tablet) Albuterol Sulfate 2.5 mg 08/20/21 2030 (Proventil RTBID PRN/INH Pre-Mix Nebs (Rt)) Acetaminophen 650 mg 08/20/21 1900 (Tylenol Tablet) Q4H PRN/PO 08/25/21 2049 Melatonin 3 mg 08/20/21 184 (Melatonin HS PRN/PO 08/25/213 Tablet) Acetaminophen/ 1 ea 08/20/21 184 Hydrocodone Bitart Q4H PRN/PO (Lortab 5 Mg Tablet) Diphenhydramine 25 mg 08/20/21 1845 HCl Q6H PRN/PO (Benadryl Tablet) Docusate Sodium 100 mg 08/20/21 1845 (Colace Capsule) BID PRN/PO Calcium Carbonate 500 mg 08/20/21 1845 (Antacid TID PRN/PO 08/26/21 2325 Chewable Tablet) Alprazolam 0.25 mg 08/20/21 184 (Xanax Tablet) Q8H PRN/PO Sodium Chloride 10-40 ML 08/20/21 1800 (Catheter Flush NEEDED PRN/IV 08/22/21 0802 Syringe) Ondansetron HCl 8 mg 08/20/21 1800 (Zofran Q6H PRN/IV 08/26/21 2325 Injection (Sdv)) Fentanyl Citrate 50 mcg 08/20/21 1800 (Sublimaze Q2H PRN/IV Injection) Lorazepam 0.5 mg 08/20/21 1800 (Ativan Q6H PRN/IV Injection) Lorazepam 1 mg 08/20/21 1800 (Ativan Q5M PRN/IV Injection) Assessment/Plan Assessment/Plan Assessment/Plan 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 Right Adnexal mass Case dicussed with Dr. Baron at [facility] Pathology report necessitates that malignancy of GI or appendiceal origin needs to be ruled out CEA, CA 19-9, EGD, and colonoscopy to work up GI involvement/origin If no GI origin, Dr. Baron will be contacted by Dr. Quevedo for Administrative Resident-Onc work-up 3. Intractable nausea and vomiting 4. Diffuse abdominal pain Supportive care Anti-emetics PRN 5. Anemia of chronic disease Iron studies to be completed 6. Symptomatic ascites Consider repeat paracentesis if abdomen continues to fill with fluid 7. Ventricular Tachycardia Followed by cardiology Premature ventricular complexes with occasional bigeminy and trigeminy as well as ventricular triplets. Dr. Leo suggested low-dose BB, and possible Holter monitor after discharge 8. Arthritis Clinical Quality Measures DVT/VTE Risk/Contraindication: Contraindications-Pharm: Other *list below* Other: severe anemia NESTOR VILLANUEVA DO 08/27/21 1504: Subjective Subjective/Events-last exam Having nausea and emesis. Not able to tolerate bowel prep. Unable to keep anything down. No bm today. Feels abdomen is same to slightly increased. Denies fever sweats chills shortness of breath or chest pain. 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 Right Adnexal mass Case dicussed with Dr. Baron at [facility] Pathology report necessitates that malignancy of GI or appendiceal origin needs to be ruled out CEA, CA 19-9, EGD, and colonoscopy to work up GI involvement/origin Patient not tolerating prep so will give one more day of clears and attempt tomorrow. If no GI origin, Dr. Baron will be contacted by Dr. Quevedo for Administrative Resident-Onc work-up 3. Intractable nausea and vomiting 4. Diffuse abdominal pain Supportive care Anti-emetics PRN 5. Anemia of chronic disease Iron studies to be completed 6. Symptomatic ascites Consider repeat paracentesis if abdomen continues to fill with fluid 7. Ventricular Tachycardia Followed by cardiology Premature ventricular complexes with occasional bigeminy and trigeminy as well as ventricular triplets. Dr. Leo suggested low-dose BB, and possible Holter monitor after discharge 8. Arthritis Supervisory-Addendum Brief Verification & Attestation Participated in pt care: history, MDM, physical Personally performed: exam, history, MDM, supervision of care Care discussed with: Medical Student Procedures: n/a Results interpretation: Verified all documentation Verification and Attestation of Medical Student E/M Service A medical student performed and documented this service in my presence. I reviewed and verified all information documented by the medical student and made modifications to such information, when appropriate. I personally performed the physical exam and medical decision making. Nestor Villanueva, Aug 27, 2021,15:03 JUAN GARG Aug 27, 2021 07:38 NESTOR VILLANUEVA DO Aug 27, 2021 15:04
[2021-08-27] MEDS: PANTOPRAZOLE 40 MG (PROTONIX) TAB PO SCH ×2 (09:12→16:12)
[2021-08-27] MEDS: SENNA W/DOCUSATE (SENOKOT S) TABLET PO SCH ×2 (09:12→21:12)
[2021-08-27] MEDS: CALCIUM CARBONATE 500 MG (TUMS) TAB.CHEW PO PRN (09:15)
[2021-08-27] MEDS: fentaNYL INJ 100 MCG/2 ML AMP IV PRN ×3 (09:16→21:18)
[2021-08-27] MEDS: ONDANSETRON 4 MG/2 ML (SDV) Z0FRAN IV PRN ×2 (13:54→21:18)
[2021-08-27] MEDS: LACTATED RINGERS 1,000 ML IV SCH (13:55)
--- NOTE | 2021-08-27 18:07 | Progress Note ---
Subjective Subjective/Events-last exam Patient having alot of nausea this AM. States that her pain is moderately controlled. Only taking sips of water. Review of Systems General: Fatigue, Malaise Pulmonary: No Dyspnea, No Cough Cardiovascular: No: Chest Pain, Palpitations, Edema Gastrointestinal: Nausea, Vomiting, Abdominal Pain Neurological: Weakness, Incoordination Objective Exam Last Set of Vital Signs Vital Signs Date Time Temp Pulse Resp B/P (MAP) Pulse Ox O2 Delivery O2 Flow Rate FiO2 08/27/21 16:53 36.8 109 22 137/89 (105) 96 Room Air Capillary Refill : Less Than 3 Seconds I&O Intake and Output 08/27/21 00:00 Intake Total 780 ml Output Total 350 ml Balance 430 ml Intake Oral 780 ml Output Urine Total 150 ml Emesis 200 ml # Voids 5 General: Alert, Oriented X3, Moderate Distress Lungs: Clear to Auscultation, Normal Air Movement Heart: Regular Rate, No Murmurs Abdomen: Other (distention, diffuse ttp, normal bowel sounds, + ascites) Neuro: Normal Speech Results/Procedures Lab Laboratory Tests 08/27/21 06:05: White Blood Count 5.2, Red Blood Count 3.40L, Hemoglobin 9.0L, Hematocrit 30L, Mean Corpuscular Volume 87, Mean Corpuscular Hemoglobin 27, Mean Corpuscular Hemoglobin Concent 30L, Red Cell Distribution Width 21.2H, Platelet Count 213, Mean Platelet Volume 9.4, Immature Granulocyte % (Auto) 4, Neutrophils (%) (Auto) 71, Lymphocytes (%) (Auto) 13, Monocytes (%) (Auto) 11, Eosinophils (%) (Auto) 0, Basophils (%) (Auto) 1, Neutrophils # (Auto) 3.7, Lymphocytes # (Auto) 0.7L, Monocytes # (Auto) 0.6, Eosinophils # (Auto) 0.0, Basophils # (Auto) 0.1, Immature Granulocyte # (Auto) 0.2H, Sodium Level 137, Potassium Level 4.6, Chloride Level 100, Carbon Dioxide Level 16L, Anion Gap 21H, Blood Urea Nitrogen 24H, Creatinine 1.66H, Estimat Glomerular Filtration Rate 31, BUN/Creatinine Ratio 14, Glucose Level 96, Calcium Level 9.3, Corrected Calcium 10.2H, Total Bilirubin 0.8, Aspartate Amino Transf (AST/SGOT) 64H, Alanine Aminotransferase (ALT/SGPT) 28, Alkaline Phosphatase 259H, Total Protein 6.7, Albumin 2.9L Microbiology 08/25/21 MRSA Screen - Final, Complete MRSA not isolated 08/21/21 Gram Stain - Final, Complete 08/21/21 Anaerobic Culture - Final, Complete No anaerobes isolated 08/21/21 Body Fluid Culture - Final, Complete No growth Assessment/Plan Assessment/Plan (1) Metastatic cancer Status: Acute Assessment & Plan: - Likely Ovarian primary, plan for EGD/Colonoscopy, Dr Berg consulted and in contact with [facility] Engineer/Onc (2) Ovarian mass, right Status: Acute (3) Normocytic anemia Status: Acute Assessment & Plan: - s/p transfusion (4) Atrial fibrillation Status: Chronic Assessment & Plan: - Consult Cardiology, appreciate recommendations Qualifiers: Qualified Codes: I48.91 - Unspecified atrial fibrillation (5) Acute kidney injury Status: Acute Assessment & Plan: - IVFs, will continue to monitor, Cr trending up Clinical Quality Measures DVT/VTE Risk/Contraindication: Contraindications-Pharm: Other *list below* Other: severe anemia OMAR HINES MD Aug 27, 2021 18:07
[2021-08-28] VITALS (7 sets, daily range): BP systolic 102–112; BP diastolic 61–73
[2021-08-28] MEDS: LACTATED RINGERS 1,000 ML IV SCH ×2 (03:37→17:56)
[2021-08-28] MEDS: PROMETHAZINE INJ 25 MG/ML (PHENERGAN) AMP IM PRN ×3 (03:38→20:22)
[2021-08-28 06:45] LABS: BASOPHILS # (AUTO) 0.1 10^3/uL (0.0-0.1); BASOPHILS % (AUTO) 1 % (0-10); EOSINOPHILS % (AUTO) 0 % (0-10); HEMATOCRIT 29 % (35-52); HEMOGLOBIN 9.1 g/dL (11.5-16.0); LYMPHOCYTES # (AUTO) 0.7 10^3/uL (1.0-4.0); LYMPHOCYTES % (AUTO) 9 % (12-44); MEAN CORPUSCULAR HEMOGLOBIN 27 pg (25-34); MEAN CORPUSCULAR HGB CONC 32 g/dL (32-36); MEAN CORPUSCULAR VOLUME 87 fL (80-99); MEAN PLATELET VOLUME 9.7 fL (9.0-12.2); MONOCYTES # (AUTO) 0.9 10^3/uL (0.0-1.0); MONOCYTES % (AUTO) 11 % (0-12); NEUTROPHILS % (AUTO) 77 % (42-75); PLATELET COUNT 243 10^3/uL (130-400); WHITE BLOOD COUNT 7.8 10^3/uL (4.3-11.0)
[2021-08-28 06:46] LABS: ALBUMIN 2.9 GM/DL (3.2-4.5); POTASSIUM 4.7 MMOL/L (3.6-5.0)
[2021-08-28 06:47] LABS: CALCIUM 8.8 MG/DL (8.5-10.1)
[2021-08-28 06:48] LABS: TOTAL PROTEIN 6.5 GM/DL (6.4-8.2)
[2021-08-28 06:50] LABS: BILIRUBIN,TOTAL 1.3 MG/DL (0.1-1.0)
[2021-08-28 06:52] LABS: CREATININE SERUM 2.55 MG/DL (0.60-1.30)
--- NOTE | 2021-08-28 07:34 | Progress Note - Surgery ---
MAGOToyJUAN LARSON 08/28/21 0734: Subjective Date Seen by a Provider: Aug 28, 2021 Time Seen by a Provider: 07:29 Subjective/Events-last exam May continues to have intractable nausea and vomiting; her emesis is dark brown/black in color. Her abdomen appears increasingly distended. May has been tachycardic, especially with movement. She is in significant pain, and is unable to participate in a full exam. Per RN, this morning (08/29/21) May got up from bed without assistance and fell. She denies hitting her head. Additionally, she was unable to complete her bowel prep, though she did have a bowel movement last night (08/27/21). Review of Systems General: Chills, Fatigue, Malaise HEENT: No Head Aches, No Visual Changes Pulmonary: No Dyspnea; Cough Cardiovascular: Palpitations; No: Chest Pain Gastrointestinal: Nausea, Vomiting, Abdominal Pain, Diarrhea Genitourinary: No Dysuria, No Frequency Musculoskeletal: No: arm pain, leg pain Neurological: Weakness, Numbness Focused Exam Respiratory: Chest Non Tender, Lungs Clear, Normal Breath Sounds Cardiovascular: Regular Rate, Rhythm, No Gallop, No Murmur Peripheral Pulses: 2+ Radial Pulses (R), 2+ Radial Pulses (L) Skin: cool, diaphoresis, pallor Objective Exam Vital Signs Date Time Temp Pulse Resp B/P (MAP) Pulse Ox O2 Delivery O2 Flow Rate FiO2 08/28/21 07:00 118 08/28/21 04:00 36.3 131 20 102/73 (83) 98 Room Air 08/28/21 01:00 117 08/27/21 23:53 35.6 110 20 128/89 (102) 99 Room Air 08/27/21 21:20 Room Air 08/27/21 20:47 37.1 103 20 129/87 (101) 94 Room Air 08/27/21 19:00 126 08/27/21 16:53 36.8 109 22 137/89 (105) 96 Room Air 08/27/21 13:00 104 08/27/21 12:00 37.2 95 18 120/73 (89) 96 Room Air 08/27/21 08:00 36.9 112 16 126/76 (93) 95 Room Air 08/27/21 08:00 Room Air I & O 08/28/21 07:00 Intake Total 1370 ml Output Total 1700 ml Balance -330 ml Capillary Refill : Less Than 3 Seconds General Appearance: WD/WN, Chronically ill HEENT: PERRL/EOMI, Normal ENT Inspection Neck: Normal Inspection, Non Tender Respiratory: Chest Non Tender, No Accessory Muscle Use, No Respiratory Distress Cardiovascular: Regular Rate, Rhythm, No JVD Peripheral Pulses: 2+ Radial Pulses (R), 2+ Radial Pulses (L) Gastrointestinal: distended (Minimal), tenderness (minimal diffuse) Extremity: Normal Inspection, Normal Range of Motion Neurologic/Psychiatric: Alert, Oriented x3, Depressed Affect Skin: Cool, Damp, Diaphoresis, Pallor Lymphatic: No Adenopathy Results Lab Laboratory Tests 08/28/21 05:48: White Blood Count 7.8, Red Blood Count 3.32L, Hemoglobin 9.1L, Hematocrit 29L, Mean Corpuscular Volume 87, Mean Corpuscular Hemoglobin 27, Mean Corpuscular Hemoglobin Concent 32, Red Cell Distribution Width 22.0H, Platelet Count 243, Mean Platelet Volume 9.7, Immature Granulocyte % (Auto) 2, Neutrophils (%) (Auto) 77H, Lymphocytes (%) (Auto) 9L, Monocytes (%) (Auto) 11, Eosinophils (%) (Auto) 0, Basophils (%) (Auto) 1, Neutrophils # (Auto) 6.0, Lymphocytes # (Auto) 0.7L, Monocytes # (Auto) 0.9, Eosinophils # (Auto) 0.0, Basophils # (Auto) 0.1, Immature Granulocyte # (Auto) 0.2H, Sodium Level 141, Potassium Level 4.7, Chloride Level 96L, Carbon Dioxide Level 20L, Anion Gap 25H, Blood Urea Nitrogen 33H, Creatinine 2.55#H, Estimat Glomerular Filtration Rate 19, BUN/Creatinine Ratio 13, Glucose Level 113H, Calcium Level 8.8, Corrected Calcium 9.7, Total Bilirubin 1.3H, Aspartate Amino Transf (AST/SGOT) 66H, Alanine Aminotransferase (ALT/SGPT) 30, Alkaline Phosphatase 229H, Total Protein 6.5, Albumin 2.9L Microbiology 08/25/21 MRSA Screen - Final, Complete MRSA not isolated 08/21/21 Gram Stain - Final, Complete 08/21/21 Anaerobic Culture - Final, Complete No anaerobes isolated 08/21/21 Body Fluid Culture - Final, Complete No growth Meds Item Value Date Time Promethazine HCl 25 mg 08/26/21 1400 (Phenergan Q6H PRN/IM 08/28/21 0338 Injection) Lactated Ringer's 1,000 ml @ 75 mls/hr 08/23/21 1130 Metoprolol 25 mg 08/23/21 0900 Succinate DAILY/PO 08/27/21 0912 (Toprol Xl Tablet) Pantoprazole 40 mg 08/22/21 1730 Sodium DAILY/PO 08/27/21 1612 (Protonix Tablet) Senna 2 ea 08/20/21 2100 (Senokot S BID/PO Tablet) Albuterol Sulfate 2.5 mg 08/20/21 2030 (Proventil RTBID PRN/INH Pre-Mix Nebs (Rt)) Acetaminophen 650 mg 08/20/21 1900 (Tylenol Tablet) Q4H PRN/PO 08/25/21 204 Melatonin 3 mg 08/20/21 1845 (Melatonin HS PRN/PO 08/25/21 2213 Tablet) Acetaminophen/ 1 ea 08/20/21 1845 Hydrocodone Bitart Q4H PRN/PO (Lortab 5 Mg Tablet) Diphenhydramine 25 mg 08/20/21 1845 HCl Q6H PRN/PO (Benadryl Tablet) Docusate Sodium 100 mg 08/20/21 1845 (Colace Capsule) BID PRN/PO Calcium Carbonate 500 mg 08/20/21 1845 (Antacid TID PRN/PO 08/27/21 0915 Chewable Tablet) Alprazolam 0.25 mg 08/20/21 1845 (Xanax Tablet) Q8H PRN/PO Sodium Chloride 10-40 ML 08/20/21 1800 (Catheter Flush NEEDED PRN/IV 08/22/21 0802 Syringe) Ondansetron HCl 8 mg 08/20/21 1800 (Zofran Q6H PRN/IV 08/27/212117 Injection (Sdv)) Fentanyl Citrate 50 mcg 08/20/21 1800 (Sublimaze Q2H PRN/IV 08/27/212117 Injection) Lorazepam 1 mg 08/20/21 1800 (Ativan Q5M PRN/IV Injection) Assessment/Plan Assessment/Plan Assessment/Plan 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 Right Adnexal mass Case dicussed with Dr. Baron at [facility] Pathology report necessitates that malignancy of GI or appendiceal origin needs to be ruled out CEA, CA 19-9, EGD, and colonoscopy to work up GI involvement/origin Patient not tolerating prep so will give one more day of clears and attempt tomorrow. If not GI in origin, Dr. Baron will be contacted by Dr. Quevedo for Lamp Tester And Inspector-Onc work-up Awaiting EGD/colonoscopy => unable to tolerate bowel prep d/t N/V; KUB is ordered to determine if any obstruction is present; patient to be transferred to pending results 3. Intractable nausea and vomiting 4. Diffuse abdominal pain Supportive care Anti-emetics PRN Clinimix has been ordered 5. Anemia of chronic disease Iron studies to be completed 6. Symptomatic ascites Consider repeat paracentesis if abdomen continues to fill with fluid 7. Ventricular Tachycardia Followed by cardiology Premature ventricular complexes with occasional bigeminy and trigeminy as well as ventricular triplets. Dr. Leo suggested low-dose BB, and possible Holter monitor after discharge 8. Arthritis Clinical Quality Measures DVT/VTE Risk/Contraindication: Contraindications-Pharm: Other *list below* Other: severe anemia NESTOR VILLANUEVA DO 08/28/211946: Subjective Subjective/Events-last exam Patient having nausea and vomiting. Unable to keep any liquids down. Has not been able to complete prep for colonoscopy. Patient tachycardic. Her abdomen is little bit more distended than yesterday and seems to have more tenderness. Had fall this morning due to weakness. Patient has no other complaints at this time. No family present at this time. Objective Exam General Appearance: No Apparent Distress (Laying in bed), Chronically ill HEENT: PERRL/EOMI, Normal ENT Inspection Neck: Normal Inspection, Non Tender Respiratory: Chest Non Tender, No Accessory Muscle Use, No Respiratory Distress Cardiovascular: No JVD, Tachycardia Gastrointestinal: distended (Minimal), tenderness (minimal diffuse) Extremity: Normal Inspection, Normal Range of Motion Neurologic/Psychiatric: Alert, Oriented x3, Depressed Affect Skin: Warm/Dry, Pallor Lymphatic: No Adenopathy Assessment/Plan Assessment/Plan Assessment/Plan Mucinous adenocarcinoma from paracentesis cytology, intractable nausea and vomiting, anemia of chronic disease, diffuse abdominal pain right adnexal mass Patient able to complete bowel prep at this time. Do not feel that she is cleaned out. She is continue to have significant nausea and emesis at this time. We'll hold off on doing EGD and colonoscopy because I don't think she would tolerate it at this time. And the other reason is that she is not completely prepped. Patient to have a KUB performed to see if any evidence of any obstruction. Would consider sending to [facility] due to patient likely being obstructed due to tumor. Patient may or may not be able to have endoscopy performed here and without being able to take prep likely not have good visualization. We'll change fluids to Clinimix. Patient to be n.p.o. after midnight in case we can proceed with scopes tomorrow. Supervisory-Addendum Brief Verification & Attestation Participated in pt care: history, MDM, physical Personally performed: exam, history, MDM, supervision of care Care discussed with: Medical Student Procedures: n/a Results interpretation: Verified all documentation Verification and Attestation of Medical Student E/M Service A medical student performed and documented this service in my presence. I reviewed and verified all information documented by the medical student and made modifications to such information, when appropriate. I personally performed the physical exam and medical decision making. Nestor Villanueva, Aug 28, 2021,19:47 JUAN GARG Aug 28, 2021 07:34 NESTOR VILLANUEVA DO Aug 28, 2021 19:47
[2021-08-28] MEDS: SENNA W/DOCUSATE (SENOKOT S) TABLET PO SCH ×2 (09:00→20:51)
[2021-08-28] MEDS: PANTOPRAZOLE 40 MG (PROTONIX) TAB PO SCH (09:00)
[2021-08-28] MEDS: ONDANSETRON 4 MG/2 ML (SDV) Z0FRAN IV PRN ×2 (09:16→18:25)
[2021-08-28] MEDS ORDERED: PANTOPRAZOLE 40 MG (PROTONIX) VIAL IV ONE (12:00)
--- NOTE | 2021-08-28 17:17 | Diagnostic Imaging Report ---
INDICATION: Nausea and vomiting. Flat and upright abdominal films are obtained. FINDINGS: Study is somewhat technically limited. No free air is visualized on the upright film. Bowel gas pattern is unremarkable; abdomen is relatively gasless. There appears to be diffuse mixed sclerotic and lytic change of the bony pelvis and lumbar spine, suspicious for metastatic disease. There are prominent calcifications overlying the left lower quadrant which could be renal in origin; consider CT or sonography. IMPRESSION: No free air or overt bowel obstruction. Relatively gasless abdomen. Findings suspicious for diffuse bony metastatic disease. There are calcifications over the left lower quadrant, which may be renal in origin; consider CT or sonography as warranted. Dictated by: Dictated on workstation # [id number]
[2021-08-28] MEDS: AA 4.25% W/LYTES IN D5W IV SOL 1,000 ML IV SCH ×2 (17:51→23:49)
[2021-08-28] MEDS ORDERED: MAGNESIUM CITRATE 300 ML BTL PO NR (18:30)
--- NOTE | 2021-08-28 20:03 | Progress Note ---
Subjective Subjective/Events-last exam Patient still having nausea and vomiting this AM. Vomit with bile tinged and specks of blood. NPO. Review of Systems Pulmonary: No Dyspnea, No Cough Cardiovascular: No: Chest Pain, Palpitations, Edema Gastrointestinal: Nausea, Vomiting, Abdominal Pain; No: Diarrhea, Constipation Neurological: Weakness, Incoordination Objective Exam Last Set of Vital Signs Vital Signs Date Time Temp Pulse Resp B/P (MAP) Pulse Ox O2 Delivery O2 Flow Rate FiO2 08/28/21 19:50 37.2 105 18 112/62 (79) 92 Nasal Cannula 2.00 Capillary Refill : Less Than 3 Seconds I&O Intake and Output 08/28/21 00:00 Intake Total 570 ml Output Total 1100 ml Balance -530 ml Intake Oral 570 ml Output Urine Total 100 ml Emesis 1000 ml # Voids 4 # Bowel Movements 3 # Emeses 1 General: Alert, Oriented X3, Mild Distress Lungs: Clear to Auscultation, Normal Air Movement Heart: Regular Rate, No Murmurs Abdomen: Other (distended with diffuse ttp, + ascites) Extremities: Other (2+ pitting edema LE) Neuro: Normal Speech Results/Procedures Lab Laboratory Tests 08/28/21 05:48: White Blood Count 7.8, Red Blood Count 3.32L, Hemoglobin 9.1L, Hematocrit 29L, Mean Corpuscular Volume 87, Mean Corpuscular Hemoglobin 27, Mean Corpuscular Hemoglobin Concent 32, Red Cell Distribution Width 22.0H, Platelet Count 243, Mean Platelet Volume 9.7, Immature Granulocyte % (Auto) 2, Neutrophils (%) (Auto) 77H, Lymphocytes (%) (Auto) 9L, Monocytes (%) (Auto) 11, Eosinophils (%) (Auto) 0, Basophils (%) (Auto) 1, Neutrophils # (Auto) 6.0, Lymphocytes # (Auto) 0.7L, Monocytes # (Auto) 0.9, Eosinophils # (Auto) 0.0, Basophils # (Auto) 0.1, Immature Granulocyte # (Auto) 0.2H, Sodium Level 141, Potassium Level 4.7, Chloride Level 96L, Carbon Dioxide Level 20L, Anion Gap 25H, Blood Urea Nitrogen 33H, Creatinine 2.55#H, Estimat Glomerular Filtration Rate 19, BUN/Creatinine Ratio 13, Glucose Level 113H, Calcium Level 8.8, Corrected Calcium 9.7, Total Bilirubin 1.3H, Aspartate Amino Transf (AST/SGOT) 66H, Alanine Aminotransferase (ALT/SGPT) 30, Alkaline Phosphatase 229H, Total Protein 6.5, Albumin 2.9L Microbiology 08/25/21 MRSA Screen - Final, Complete MRSA not isolated 08/21/21 Gram Stain - Final, Complete 08/21/21 Anaerobic Culture - Final, Complete No anaerobes isolated 08/21/21 Body Fluid Culture - Final, Complete No growth Assessment/Plan Assessment/Plan (1) Metastatic cancer Status: Acute Assessment & Plan: - Likely Ovarian primary, plan for EGD/Colonoscopy, Dr Berg consulted and in contact with [facility] Supervisor/Onc (2) Ovarian mass, right Status: Acute (3) Normocytic anemia Status: Acute Assessment & Plan: - s/p transfusion (4) Atrial fibrillation Status: Chronic Assessment & Plan: - Consult Cardiology, appreciate recommendations Qualifiers: Qualified Codes: I48.91 - Unspecified atrial fibrillation (5) Acute kidney injury Status: Acute Assessment & Plan: - IVFs, will continue to monitor, Cr trending up 08/28: Cr trending up, bolus given today, continue to monitor (6) Elevated LFTs Status: Acute Assessment & Plan: 08/28: Likely 2/2 metastasis, will continue to monitor, + Ascites Clinical Quality Measures DVT/VTE Risk/Contraindication: Contraindications-Pharm: Other *list below* Other: severe anemia OMAR HINES MD Aug 28, 2021 20:03
[2021-08-28] MEDS: ACETAMINOPHEN 325 MG TABLET PO PRN (20:51)
[2021-08-29 03:56] VITALS: BP 97/62
[2021-08-29] MEDS: PROMETHAZINE INJ 25 MG/ML (PHENERGAN) AMP IM PRN ×2 (04:13→16:32)
[2021-08-29 06:21] LABS: BASOPHILS # (AUTO) 0.1 10^3/uL (0.0-0.1); BASOPHILS % (AUTO) 1 % (0-10); EOSINOPHILS % (AUTO) 1 % (0-10); HEMATOCRIT 24 % (35-52); HEMOGLOBIN 7.5 g/dL (11.5-16.0); LYMPHOCYTES % (AUTO) 16 % (12-44); MEAN CORPUSCULAR HEMOGLOBIN 28 pg (25-34); MEAN CORPUSCULAR HGB CONC 32 g/dL (32-36); MEAN CORPUSCULAR VOLUME 88 fL (80-99); MEAN PLATELET VOLUME 9.7 fL (9.0-12.2); MONOCYTES # (AUTO) 0.9 10^3/uL (0.0-1.0); MONOCYTES % (AUTO) 15 % (0-12); NEUTROPHILS # (AUTO) 4.1 10^3/uL (1.8-7.8); NEUTROPHILS % (AUTO) 66 % (42-75); PLATELET COUNT 188 10^3/uL (130-400); WHITE BLOOD COUNT 6.3 10^3/uL (4.3-11.0)
[2021-08-29] MEDS: LACTATED RINGERS 1,000 ML IV SCH ×2 (06:32→16:29)
[2021-08-29 06:45] LABS: ALBUMIN 2.6 GM/DL (3.2-4.5); BILIRUBIN,TOTAL 0.8 MG/DL (0.1-1.0); CALCIUM 8.3 MG/DL (8.5-10.1); CREATININE SERUM 3.45 MG/DL (0.60-1.30)
--- NOTE | 2021-08-29 07:20 | Progress Note - Surgery ---
JUAN GARG 08/29/21 0720: Subjective Date Seen by a Provider: Aug 29, 2021 Time Seen by a Provider: 07:14 Subjective/Events-last exam May is asleep in bed, laying on her L side. She is currently NPO, and receiving IV Clinimix. Abdominal CT and pelvic US demonstrated diffuse metastatic disease, with a complex nodular appearing cystic mass within the right adnexa. She continues to have nausea and vomiting. Did not have a bowel movement last night, and is currently oliguric with bladder retention. Review of Systems General: Fatigue, Malaise HEENT: No Head Aches, No Visual Changes Pulmonary: No Dyspnea; Cough Cardiovascular: No: Chest Pain, Palpitations Gastrointestinal: Nausea, Vomiting, Abdominal Pain Genitourinary: No Incontinence; Retention Musculoskeletal: back pain, leg pain Neurological: Weakness; No: Change in speech Focused Exam Respiratory: Chest Non Tender, Lungs Clear, No Accessory Muscle Use Cardiovascular: Regular Rate, Rhythm, Tachycardia Peripheral Pulses: 2+ Radial Pulses (R), 2+ Radial Pulses (L) Skin: normal color, mottled, pallor Objective Exam Vital Signs Date Time Temp Pulse Resp B/P (MAP) Pulse Ox O2 Delivery O2 Flow Rate FiO2 08/29/21 03:56 37.0 96 18 97/62 (74) 97 Nasal Cannula 2.00 08/29/21 02:46 103 08/29/21 02:40 166 08/29/21 01:00 116 08/28/21 23:56 37.0 121 18 106/71 (83) 96 Nasal Cannula 2.00 08/28/21 20:00 Room Air 08/28/21 19:50 37.2 105 18 112/62 (79) 92 Nasal Cannula 2.00 08/28/21 19:00 102 08/28/21 16:00 37.0 111 18 108/61 (77) 97 Nasal Cannula 2.00 08/28/21 13:54 37.3 120 20 105/69 (81) 98 Nasal Cannula 2.00 08/28/21 13:00 117 08/28/21 11:31 36.9 116 20 105/67 (80) 96 Nasal Cannula 2.00 08/28/21 09:00 Room Air 08/28/21 08:20 37.0 120 18 107/69 (82) 99 Nasal Cannula 2.00 I & O 08/29/21 07:00 Intake Total 30 ml Output Total 220 ml Balance -190 ml Capillary Refill : Less Than 3 Seconds General Appearance: No Apparent Distress (Laying in bed), Chronically ill HEENT: PERRL/EOMI, Normal ENT Inspection Neck: Normal Inspection, Non Tender Respiratory: Chest Non Tender, No Accessory Muscle Use, No Respiratory Distress Cardiovascular: No JVD, Tachycardia Peripheral Pulses: 2+ Radial Pulses (R), 2+ Radial Pulses (L) Gastrointestinal: distended (Minimal), tenderness (minimal diffuse) Extremity: Normal Inspection, Normal Range of Motion Neurologic/Psychiatric: Alert, Oriented x3, Depressed Affect Skin: Warm/Dry, Pallor Lymphatic: No Adenopathy Results Lab Laboratory Tests 08/29/21 06:09: White Blood Count 6.3, Red Blood Count 2.71L, Hemoglobin 7.5L, Hematocrit 24L, Mean Corpuscular Volume 88, Mean Corpuscular Hemoglobin 28, Mean Corpuscular Hemoglobin Concent 32, Red Cell Distribution Width 22.2H, Platelet Count 188, Mean Platelet Volume 9.7, Immature Granulocyte % (Auto) 2, Neutrophils (%) (Auto) 66, Lymphocytes (%) (Auto) 16, Monocytes (%) (Auto) 15H, Eosinophils (%) (Auto) 1, Basophils (%) (Auto) 1, Neutrophils # (Auto) 4.1, Lymphocytes # (Auto) 1.0, Monocytes # (Auto) 0.9, Eosinophils # (Auto) 0.0, Basophils # (Auto) 0.1, Immature Granulocyte # (Auto) 0.1, Sodium Level 137, Potassium Level 5.0, Chloride Level 97L, Carbon Dioxide Level 22, Anion Gap 18H, Blood Urea Nitrogen 53H, Creatinine 3.45#H, Estimat Glomerular Filtration Rate 13, BUN/Creatinine Ratio 15, Glucose Level 126H, Calcium Level 8.3L, Corrected Calcium 9.4, Total Bilirubin 0.8, Aspartate Amino Transf (AST/SGOT) 67H, Alanine Aminotransferase (ALT/SGPT) 29, Alkaline Phosphatase 207H, Total Protein 6.0L, Albumin 2.6L Microbiology 08/25/21 MRSA Screen - Final, Complete MRSA not isolated 08/21/21 Gram Stain - Final, Complete 08/21/21 Anaerobic Culture - Final, Complete No anaerobes isolated 08/21/21 Body Fluid Culture - Final, Complete No growth Meds Item Value Date Time Pantoprazole 40 mg 08/29/21 0900 (Protonix DAILY/IV Injection) Amino Acids/ 1,000 ml @ 125 mls/hr 08/28/21 1615 Electrolytes/ Q8H/IV 08/28/21 2349 Dextrose Promethazine HCl 25 mg 08/26/21 1400 (Phenergan Q6H PRN/IM 08/29/21 0413 Injection) Lactated Ringer's 1,000 ml @ 75 mls/hr 08/23/21 1130 Metoprolol 25 mg 08/23/21 0900 Succinate DAILY/PO 08/28/21 0916 (Toprol Xl Tablet) Senna 2 ea 08/20/21 2100 (Senokot S BID/PO 08/28/212050 Tablet) Acetaminophen 650 mg 08/20/21 1900 (Tylenol Tablet) Q4H PRN/PO 08/28/212050 Albuterol Sulfate 2.5 mg 08/20/21 2030 (Proventil RTBID PRN/INH Pre-Mix Nebs (Rt)) Melatonin 3 mg 08/20/21 1845 (Melatonin HS PRN/PO 08/25/21 221 Tablet) Acetaminophen/ 1 ea 08/20/21 184 Hydrocodone Bitart Q4H PRN/PO (Lortab 5 Mg Tablet) Diphenhydramine 25 mg 08/20/21 1845 HCl Q6H PRN/PO (Benadryl Tablet) Docusate Sodium 100 mg 08/20/21 1845 (Colace Capsule) BID PRN/PO Calcium Carbonate 500 mg 08/20/21 1845 (Antacid TID PRN/PO 08/27/21 0915 Chewable Tablet) Alprazolam 0.25 mg 08/20/21 1845 (Xanax Tablet) Q8H PRN/PO Sodium Chloride 10-40 ML 08/20/21 1800 (Catheter Flush NEEDED PRN/IV 08/22/21 0802 Syringe) Ondansetron HCl 8 mg 08/20/21 1800 (Zofran Q6H PRN/IV 08/28/21 1825 Injection (Sdv)) Fentanyl Citrate 50 mcg 08/20/21 1800 (Sublimaze Q2H PRN/IV 08/27/212117 Injection) Lorazepam 0.5 mg 08/20/21 1800 (Ativan Q6H PRN/IV Injection) Lorazepam 1 mg 08/20/21 1800 (Ativan Q5M PRN/IV Injection) Radiology NAME: HANNAH ARNOLD MED REC#: [id number] PT STATUS: ADM IN : 1955 PHYSICIAN: BELKIS STAHL DO ADMIT DATE: 08/20/21 Signed Date of Exam:08/21/21 US PELVIC (NON OB)08620 PROCEDURE: US PELVIC (NON OB). [place] NAME: HANNAH ARNOLD MED REC#: [id number] PT STATUS: ADM IN : 1955 PHYSICIAN: NESTOR VILLANUEVA DO ADMIT DATE: 08/20/21 Draft Date of Exam:08/28/21 ABDOMEN, FLAT & UPRIGHT/DECUB INDICATION: Nausea and vomiting. Flat and upright abdominal films are obtained. FINDINGS: Study is somewhat technically limited. No free air is visualized on the upright film. Bowel gas pattern is unremarkable; abdomen is relatively gasless. There appears to be diffuse mixed sclerotic and lytic change of the bony pelvis and lumbar spine, suspicious for metastatic disease. There are prominent calcifications overlying the left lower quadrant which could be renal in origin; consider CT or sonography. IMPRESSION: No free air or overt bowel obstruction. Relatively gasless abdomen. Findings suspicious for diffuse bony metastatic disease. There are calcifications over the left lower quadrant, which may be renal in origin; consider CT or sonography as warranted. Dictated on workstation # [id number] Dict: 08/28/211701 Trans: 08/28/21 [id number] Interpreted by: CHEN BUCKLEY MD Electronically signed by: TECHNIQUE: Multiple Real-time grayscale images were obtained over the pelvis in various projections transabdominally. INDICATION: Metastatic cancer. Ovarian mass on CT. COMPARISON: 08/20/2021 CT scan. FINDINGS: The uterus measures 7.5 x 4.7 x 4.5 cm. There is a large amount of ascites. The endometrial stripe is 8 mm. The right ovary measures 5.3 x 4.2 x 4.1 cm. There is a 3.7 cm complex thick-walled cyst with internal echoes noted in the right adnexa. This does correlate with the CT findings. The left ovary measures 3.7 x 2.8 x 2.0 cm. There is normal blood flow to the ovaries. IMPRESSION: A complex nodular appearing cystic mass within the right adnexa correlates with the CT findings. This is highly suspicious for malignancy. 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 Do not feel that she is cleaned out. She is continue to have significant nausea and emesis at this time. We'll hold off on doing EGD and colonoscopy because I don't think she would tolerate it at this time. And the other reason is that she is not com pletely prepped. Patient to have a KUB performed to see if any evidence of any obstruction. Would consider sending to [facility] due to patient likely being obstructed due to tumor. Patient may or may not be able to have endoscopy performed here and without being able to take prep likely not have good visualization. We'll change fluids to Clinimix. Patient to be n.p.o. after midnight in case we can proceed with scopes tomorrow. Clinical Quality Measures DVT/VTE Risk/Contraindication: Contraindications-Pharm: Other *list below* Other: severe anemia NESTOR VILLANUEVA DO 08/30/21 2004: Subjective Subjective/Events-last exam Patient unable to tolerate prep. She is continued to have nausea and vomiting. Abdominal x-ray demonstrating no free air or overt obstruction. Patient not feeling well and feels like she is declining. Abdomen is increasing in size slightly. She is tired. Denies any fever sweats chills shortness of breath or chest pain at this time. 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 Do not feel that she is cleaned out. She is continue to have significant nausea and emesis at this time. We'll hold off on doing EGD and colonoscopy because I don't think she would tolerate it at this time. Would consider sending to [facility] due to patient likely being obstructed due to tumor. Patient considering comfort care. Supervisory-Addendum Brief Verification & Attestation Participated in pt care: history, MDM, physical Personally performed: exam, history, MDM, supervision of care Care discussed with: Medical Student Procedures: n/a Results interpretation: Verified all documentation Verification and Attestation of Medical Student E/M Service A medical student performed and documented this service in my presence. I reviewed and verified all information documented by the medical student and made modifications to such information, when appropriate. I personally performed the physical exam and medical decision making. Nestor Villanueva, Aug 29, 2021,22:04 JUAN GARG Aug 29, 2021 07:20 NESTOR VILLANUEVA DO Aug 30, 2021 20:04
[2021-08-29 08:00] VITALS: BP 110/65
[2021-08-29] MEDS: AA 4.25% W/LYTES IN D5W IV SOL 1,000 ML IV SCH ×2 (08:17→16:29)
[2021-08-29] MEDS: PANTOPRAZOLE 40 MG (PROTONIX) VIAL IV SCH (08:17)
[2021-08-29] MEDS: SENNA W/DOCUSATE (SENOKOT S) TABLET PO SCH (08:18)
[2021-08-29] MEDS: ONDANSETRON 4 MG/2 ML (SDV) Z0FRAN IV PRN (08:18)
[2021-08-29] MEDS: LORazepam INJ 2 MG/ML (ATIVAN) VIAL IV PRN ×2 (08:37→17:04)
[2021-08-29] MEDS: ACETAMINOPHEN 325 MG TABLET PO PRN (08:43)
[2021-08-29 11:44] VITALS: BP 101/65
[2021-08-29 16:00] VITALS: BP 117/64
[2021-08-29] MEDS: DIPHENHYDRAMINE PO SCH ×10 (16:29→20:18)
[2021-08-29] MEDS: NYSTATIN PO SCH ×10 (16:29→20:18)
[2021-08-29] MEDS: [UNRECOGNIZED DRUG - OTHER] PO SCH ×10 (16:29→20:18)
[2021-08-29] MEDS ORDERED: SALIVA STIMULANT MOUTH SPRAY (BIOTENE) 1.5 OZ MM PRN (19:30)
[2021-08-29] MEDS ORDERED: ONDANSETRON 4 MG/2 ML (SDV) Z0FRAN IVP PRN (19:30)
[2021-08-29] MEDS ORDERED: RT-ALBUTEROL/IPRATROPIUM 3 ML (DUONEB) VIAL INH PRN (19:30)
[2021-08-29] MEDS ORDERED: ARTIFICAL TEARS 0.4 ML UNIT DOSE (REFRESH PLUS) OU PRN (19:30)
[2021-08-29] MEDS ORDERED: PROMETHAZINE INJ 25 MG/ML (PHENERGAN) AMP IVP PRN (19:30)
[2021-08-29] MEDS ORDERED: BISACODYL 10 MG SUPP (DULCOLAX) PR PRN (19:30)
[2021-08-29] MEDS ORDERED: PROCHLORPERAZINE 25 MG (COMPAZINE) SUPP PR PRN (19:30)
[2021-08-29] MEDS ORDERED: ACETAMINOPHEN 650 MG SUPP (TYLENOL) PR PRN (19:30)
--- NOTE | 2021-08-29 19:40 | Progress Note ---
Subjective Subjective/Events-last exam Patient feeling worse today. Still not tolerating PO diet. Having pain in abdominal. Discussed plan of care and patient and her would not like to be transferred to . States that she rather go home on hospice to be with family. Discussed the grave diagnosis if patient is not transferred for treatment of her renal failure and Metastatic cancer. Review of Systems Pulmonary: No Dyspnea, No Cough Cardiovascular: No: Chest Pain Gastrointestinal: Nausea, Vomiting, Abdominal Pain Musculoskeletal: neck pain Neurological: Weakness, Incoordination Objective Exam Last Set of Vital Signs Vital Signs Date Time Temp Pulse Resp B/P (MAP) Pulse Ox O2 Delivery O2 Flow Rate FiO2 08/29/21 16:00 37.4 104 20 117/64 (81) 99 Nasal Cannula 2.00 Capillary Refill : Less Than 3 Seconds I&O Intake and Output 08/29/21 00:00 Intake Total 1080 ml Output Total 600 ml Balance 480 ml Intake Oral 80 ml IV Total 1000 ml Output Urine Total 200 ml Emesis 400 ml Bladder Scan Volume Amount 1490 ml # Voids 2 # Emeses 10 General: Alert, Oriented X3, No Acute Distress Lungs: Clear to Auscultation, Normal Air Movement Heart: Regular Rate, No Murmurs Abdomen: Other (distended abdomen, + Ascites, diffuse ttp) Extremities: No Tenderness/Swelling Skin: No Rashes Neuro: Normal Speech Results/Procedures Lab Laboratory Tests 08/29/21 06:09: White Blood Count 6.3, Red Blood Count 2.71L, Hemoglobin 7.5L, Hematocrit 24L, Mean Corpuscular Volume 88, Mean Corpuscular Hemoglobin 28, Mean Corpuscular Hemoglobin Concent 32, Red Cell Distribution Width 22.2H, Platelet Count 188, Mean Platelet Volume 9.7, Immature Granulocyte % (Auto) 2, Neutrophils (%) (Auto) 66, Lymphocytes (%) (Auto) 16, Monocytes (%) (Auto) 15H, Eosinophils (%) (Auto) 1, Basophils (%) (Auto) 1, Neutrophils # (Auto) 4.1, Lymphocytes # (Auto) 1.0, Monocytes # (Auto) 0.9, Eosinophils # (Auto) 0.0, Basophils # (Auto) 0.1, Immature Granulocyte # (Auto) 0.1, Sodium Level 137, Potassium Level 5.0, Chloride Level 97L, Carbon Dioxide Level 22, Anion Gap 18H, Blood Urea Nitrogen 53H, Creatinine 3.45#H, Estimat Glomerular Filtration Rate 13, BUN/Creatinine Ratio 15, Glucose Level 126H, Calcium Level 8.3L, Corrected Calcium 9.4, Total Bilirubin 0.8, Aspartate Amino Transf (AST/SGOT) 67H, Alanine Aminotransferase (ALT/SGPT) 29, Alkaline Phosphatase 207H, Total Protein 6.0L, Albumin 2.6L Microbiology 08/25/21 MRSA Screen - Final, Complete MRSA not isolated 08/21/21 Gram Stain - Final, Complete 08/21/21 Anaerobic Culture - Final, Complete No anaerobes isolated 08/21/21 Body Fluid Culture - Final, Complete No growth Assessment/Plan Assessment/Plan (1) Acute kidney failure Status: Acute Assessment & Plan: 08/29: Cr trending up despite IVFs, Discussed need for transfer and possible HD and patient states that she is not interested in transfer Qualifiers: Qualified Codes: N17.9 - Acute kidney failure, unspecified (2) Metastatic cancer Status: Acute Assessment & Plan: - Likely Ovarian primary, plan for EGD/Colonoscopy, Dr Berg consulted and in contact with Order Desk Caller/Onc 08/29: Spoke with Dr Berg on the phone and we recommend transfer to , discussed with patient and her and she is wanting to go home on hospice rather then transfer to high level of care. They both voiced understanding that if her kidney continue to get worse at this rate that she will quickly progress and likely result in . Palliative care consult placed for patient to choose hospice care for home. (3) Ovarian mass, right Status: Acute (4) Normocytic anemia Status: Acute Assessment & Plan: - s/p transfusion (5) Atrial fibrillation Status: Chronic Assessment & Plan: - Consult Cardiology, appreciate recommendations Qualifiers: Qualified Codes: I48.91 - Unspecified atrial fibrillation (6) Elevated LFTs Status: Acute Assessment & Plan: 08/28: Likely 2/2 metastasis, will continue to monitor, + Ascites Clinical Quality Measures DVT/VTE Risk/Contraindication: Contraindications-Pharm: Other *list below* Other: severe anemia OMAR HINES MD Aug 29, 2021 19:40
[2021-08-29] MEDS: LORazepam INJ 2 MG/ML (ATIVAN) VIAL IVP PRN (20:18)
[2021-08-30] MEDS: LORazepam INJ 2 MG/ML (ATIVAN) VIAL IVP PRN ×2 (00:24→07:46)
[2021-08-30] MEDS: PROMETHAZINE INJ 25 MG/ML (PHENERGAN) AMP IM PRN (00:26)
[2021-08-30] MEDS: GLYCOPYRROLATE 0.2 MG/ML (ROBINUL) 2 ML VIAL IV PRN ×2 (02:10→07:42)
[2021-08-30] MEDS: LORazepam INJ 2 MG/ML (ATIVAN) VIAL IV PRN (03:34)
--- NOTE | 2021-08-30 08:43 | Discharge Summary ---
Diagnosis/Chief Complaint Date of Admission Aug 20, 2021 at 16:23 Date of Discharge Discharge Diagnosis Problems/Diagnosis: (1) Acute kidney failure Assessment & Plan: 08/29: Cr trending up despite IVFs, Discussed need for transfer and possible HD and patient states that she is not interested in transfer Qualifiers: Qualified Codes: N17.9 - Acute kidney failure, unspecified Status: Acute (2) Metastatic cancer Assessment & Plan: - Likely Ovarian primary, plan for EGD/Colonoscopy, Dr Berg consulted and in contact with Dental Cream Maker/Onc 08/29: Spoke with Dr Berg on the phone and we recommend transfer to , discussed with patient and her and she is wanting to go home on hospice rather then transfer to high level of care. They both voiced understanding that if her kidney continue to get worse at this rate that she will quickly progress and likely result in . Palliative care consult placed for patient to choose hospice care for home. Status: Acute (3) Ovarian mass, right Status: Acute (4) Normocytic anemia Assessment & Plan: - s/p transfusion Status: Acute (5) Atrial fibrillation Assessment & Plan: - Consult Cardiology, appreciate recommendations Qualifiers: Qualified Codes: I48.91 - Unspecified atrial fibrillation Status: Chronic (6) Elevated LFTs Assessment & Plan: 08/28: Likely 2/2 metastasis, will continue to monitor, + Ascites Status: Acute Discharge Summary-Simple/Stand Consultations Discharge Physical Examination Allergies: Coded Allergies: No Known Drug Allergies (Unverified , 08/09/14) Vitals & I&Os Vital Sign - Last 12Hours Date Time Temp Pulse Resp B/P (MAP) Pulse Ox O2 Delivery O2 Flow Rate FiO2 08/29/21 20:00 Room Air 08/29/21 16:00 37.4 104 20 117/64 (81) 99 2.00 Intake and Output 08/30/21 00:00 Intake Total 240 ml Output Total 610 ml Balance -370 ml Hospital Course See final discharge diagnosis. Discharge Instructions to patient/family Please see electronic discharge instructions given to patient. Discharge Medications Reviewed and agree with Discharge Medication list on patient's Discharge Instruction sheet Clinical Quality Measures DVT/VTE Risk/Contraindication: Contraindications-Pharm: Other *list below* Other: severe anemia OMAR HINES MD Aug 30, 2021 08:43
[2021-08-30] MEDS: PANTOPRAZOLE 40 MG (PROTONIX) VIAL IV SCH (09:33)
[2021-08-30] MEDS: DIPHENHYDRAMINE PO SCH ×5 (09:35)
[2021-08-30] MEDS: NYSTATIN PO SCH ×5 (09:35)
[2021-08-30] MEDS: [UNRECOGNIZED DRUG - OTHER] PO SCH ×5 (09:35)
== END 2021-08-30 11:40 | disposition expired | DRG 755 ==
LOC: EDUNIT# 14:01 → ER 14:18 → 4TH 16:23
PROVIDERS: ADMIT Internal Medicine; ATTEND Family Medicine
PROC: 0W9G3ZZ Drainage of Peritoneal Cavity, Percutaneous Approach (ICD-10-PCS; principal; 2021-08-21)
DX: C56.1 Malignant neoplasm of right ovary (principal); C78.6 Secondary malignant neoplasm of retroperitoneum and peritoneum; R18.0 Malignant ascites; C79.51 Secondary malignant neoplasm of bone; I47.2 Ventricular tachycardia; N17.9 Acute kidney failure, unspecified; R56.9 Unspecified convulsions; R32 Unspecified urinary incontinence; D64.9 Anemia, unspecified; F17.210 Nicotine dependence, cigarettes, uncomplicated; H54.7 Unspecified visual loss; I87.2 Venous insufficiency (chronic) (peripheral); M19.91 Primary osteoarthritis, unspecified site; I34.0 Nonrheumatic mitral (valve) insufficiency; I45.10 Unspecified right bundle-branch block; I49.3 Ventricular premature depolarization; K80.20 Calculus of gallbladder without cholecystitis without obstruction
CPT/HCPCS: 36410; 36415; 70450; 70553; 71045; 71250; 74019; 74176; 76856; 76937; 76942; 78452; 80053; 82378; 82728; 82945; 83540; 83550; 83690; 83735; 83880; 84157; 84439; 84443; 85025; 85610; 85730; 86301; 86304; 86850; 86900; 86901; 86920; 87070; 87075; 87081; 87205; 87636; 88112; 88305; 88313; 88341; 88342; 89051; 93005; 93017; 93306; 94760; 96360